=== PATIENT | female | born 1960 | race Caucasian/White ===

== ENCOUNTER 2018-04-16 16:38 | Emergency (ER) | payer OTHER ==
[2018-04-16] MEDS ORDERED: KETOROLAC 30 MG/ML INJ ONE (19:37)
[2018-04-16] MEDS ORDERED: MORPHINE 4 MG/ML SYR ONE (19:37)
[2018-04-16] MEDS ORDERED: ONDANSETRON 4 MG (ODT) TAB ONE (19:37)
[2018-04-16 20:20] LABS: Urine Blood NEGATIVE (NEG); Urine Glucose NEGATIVE (NEG); Urine Protein NEGATIVE (NEG)
--- NOTE | 2018-04-16 20:35 | RAD REPORT ---
EXAM DESCRIPTION: RAD - Lumbar Spine 3 Views - 04/16/2018 7:43 pm CLINICAL HISTORY: Slip and fall, back pain COMPARISON: March 2010 FINDINGS: A three-view lumbar spine examination was performed. Lumbar bodies are normal in height an d alignment. No acute fracture change suspected. Degenerative changes are present to the superior end plates L2 and L3 that is progressive from the prior study. No pathologic bone process. Lower lumbar f acet degenerative change has progressed. L2-3 disc space narrowing has progressed. No pars defects id entified. IMPRESSION: Lumbar spine degenerative changes are present. The above detailed findings show progress ion from 2009. No compression fracture or acute finding suspected.
--- NOTE | 2018-04-16 20:38 | RAD REPORT ---
EXAM DESCRIPTION: RAD - Pelvis - 04/16/2018 7:43 pm CLINICAL HISTORY: Slip and fall, back, pelvis and hip pain COMPARISON: None. TECHNIQUE: AP imaging of the pelvis was obtained. FINDINGS: No fracture of the bony pelvis. Lower lumbar degenerative change is separately detailed. S I joint degenerative change is present without acute sacral ala finding. No fracture or acute hip lesley nt finding. No joint effusion or other soft tissue abnormality seen. IMPRESSION: Negative pelvis for acute or significant finding.
--- NOTE | 2018-04-16 20:39 | RAD REPORT ---
EXAM DESCRIPTION: RAD - Hip Left 2 View - 04/16/2018 7:43 pm CLINICAL HISTORY: Fall, hip pain COMPARISON: None. FINDINGS: AP and frogleg views of the left hip were obtained. There is no fracture or dislocation. N o acute or destructive bony process seen. No significant degenerative change. No soft tissue abnormality. IMPRESSION: Negative left hip examination for acute or significant findings.
--- NOTE | 2018-04-16 20:42 | ER ---
Nurse's Notes [facility] Name: Ronnell Rubalcava Age: 58 yrs Sex: Female : 1960 Arrival Date: 04/16/2018 Time: 16:38 Bed 24 Private MD: Josh Jamison E Diagnosis: Sprain of ligaments of lumbar spine;Pain in left hip Presentation: 04/16 16:46 Presenting complaint: Patient states: slip and fell yesterday, c/o left hip, groin and sv back pain. Transition of care: patient was not received from another setting of care. Onset of symptoms was April 15, 2018. Care prior to arrival: None. 16:46 Method Of Arrival: Ambulatory sv 16:46 Acuity: BRYANT 4 sv 18:49 Risk Assessment: Do you want to hurt yourself or someone else? Patient reports no kr2 desire to harm self or others. Initial Sepsis Screen: Does the patient meet any 2 criteria? No. Patient's initial sepsis screen is negative. Does the patient have a suspected source of infection? No. Patient's initial sepsis screen is negative. Triage Assessment: 16:46 General: Appears in no apparent distress. uncomfortable, Behavior is calm, cooperative, sv appropriate for age. Pain: Complains of pain in left lower back and left hip Pain currently is 10 out of 10 on a pain scale. Neuro: Level of Consciousness is awake, alert, obeys commands, Oriented to person, place, time, situation, Moves all extremities. Full function Gait is steady. Respiratory: Respiratory effort is even, unlabored, Respiratory pattern is regular, symmetrical. Musculoskeletal: Range of motion: intact in all extremities. Historical: - Allergies: 16:47 Tegretol; sv - Home Meds: 18:53 Burkburnett Oral three times a day for Pain [Active]; carvedilol Oral [Active]; kr2 Cyclobenzaprine Oral [Active]; escitalopram oxalate Oral [Active]; levothyroxine oral [Active]; quetiapine Oral [Active]; topiramate Oral [Active]; Zolpidem Tartrate Oral [Active]; - PMHx: 16:47 Back pain; Fibromyalgia; graves disease; Hypertension; hyperthyroidism; Hypothyroidism; sv - PSHx: 16:47 Cholecystectomy; Appendectomy; ; sv - Immunization history:: Flu vaccine is not up to date. - Social history:: Smoking status: Patient uses tobacco products, smokes one-half pack cigarettes per day. - Ebola Screening: : No symptoms or risks identified at this time. Screenin:49 Abuse screen: Denies threats or abuse. Denies injuries from another. Nutritional kr2 screening: No deficits noted. Tuberculosis screening: No symptoms or risk factors identified. Fall Risk Fall in past 12 months (25 points). Assessment: 18:45 General: Appears in no apparent distress. uncomfortable, well groomed, well developed, kr2 well nourished, Behavior is cooperative, crying. Pain: Complains of pain in left lower back Pain radiates to buttocks and left hip Pain currently is 10 out of 10 on a pain scale. Quality of pain is described as aching, sharp, shooting, Is continuous, Alleviated by nothing. Aggravated by increased activity, Noted to be crying. Neuro: Level of Consciousness is awake, alert, obeys commands, Oriented to person, place, time, situation, [employer] Feeder are equal bilaterally Moves all extremities. Intact. Cardiovascular: Capillary refill < 3 seconds in bilateral fingers Patient's skin is warm and dry. Respiratory: Airway is patent Respiratory effort is even, unlabored, Respiratory pattern is regular, symmetrical. GI: Abdomen is flat, non-distended. : Denies inability to void. EENT: Oral mucosa is moist. Derm: Skin is intact, is healthy with good turgor, Skin is pink, warm \T\ dry. Musculoskeletal: Circulation, motion, and sensation intact. Reports She takes Burkburnett 3 times per day that is prescribed by pain management clinic but it is not helping her pain. She says she goes to pain management for back pain. Injury Description: Patient reports slipping and falling backwards from a standing position yesterday. 20:00 Reassessment: Patient appears in no apparent distress at this time. Patient and/or kr2 family updated on plan of care and expected duration. Pain level reassessed. Patient is alert, oriented x 3, equal unlabored respirations, skin warm/dry/pink. Patient states symptoms have improved. Vital Signs: 16:47 BP 196 / 99; Pulse 83; Resp 20; Temp 97.3; Pulse Ox 99% ; Weight 86.18 kg; Height 5 ft. sv 2 in. (157.48 cm); Pain 10/10; 20:17 BP 138 / 72; Pulse 79; Resp 16; Pulse Ox 98% on R/A; kr2 16:47 Body Mass Index 34.75 (86.18 kg, 157.48 cm) ED Course: 16:38 Patient arrived in ED. as 16:39 Josh Jamison MD is Private Physician. as 16:47 Triage completed. sv 16:47 Arm band placed on. sv 18:40 Anthony Griffin PA is PHCP. [facility] 18:40 Jagdish Spicer MD is Attending Physician. [facility] 18:40 Smita Rocha RN is Primary Nurse. kr2 18:49 Patient has correct armband on for positive identification. Bed in low position. Call kr2 light in reach. Side rails up X 1. Pulse ox on. NIBP on. Door closed. Warm blanket given. Head of bed elevated. 19:42 X-ray completed. Patient tolerated procedure well. Patient moved back from radiology. ls3 19:43 Lumbar Spine (3 Views) XRAY In Process Unspecified. EDMS 19:43 Pelvis XRAY In Process Unspecified. EDMS 19:43 Hip Left 2 View XRAY In Process Unspecified. EDMS 20:56 No provider procedures requiring assistance completed. Patient did not have IV access kr2 during this emergency room visit. Administered Medications: 19:48 Drug: Zofran 4 mg Route: PO; kr2 21:01 Follow up: Response: No adverse reaction kr2 19:48 Drug: Ketorolac 30 mg Route: IM; Site: left deltoid; kr2 21:01 Follow up: Response: No adverse reaction; Pain is decreased kr2 19:49 Drug: morphine 4 mg Route: IM; Site: right deltoid; kr2 21:01 Follow up: Response: No adverse reaction; Pain is decreased kr2 Outcome: 20:42 Discharge ordered by . durga 20:56 Discharged to home ambulatory, with family. kr2 20:56 Condition: good 20:56 Discharge instructions given to patient, Instructed on discharge instructions, follow up and referral plans. Demonstrated understanding of instructions, follow-up care. 21:01 Patient left the ED. kr2 Signatures: Dispatcher [employer] Feli Bess RN RN Mickail, AnthonyMAUREEN Amelia as Reaves, Karey, RN RN kr2 Salo Mejia ls3
--- NOTE | 2018-04-16 20:43 | EDPHYS ---
Physician Documentation [facility] Name: Ronnell Rubalcava Age: 58 yrs Sex: Female : 1960 Arrival Date: 04/16/2018 Time: 16:38 Bed 24 Private MD: Josh Jamison E ED Physician Jagdish Spicer HPI: 04/16 19:14 This 58 yrs old Female presents to ER via Ambulatory with complaints of Back jmm Pain, Hip Pain. 19:14 The patient presents with pain that is acute. The symptoms are located in the low back. jmm Onset: The symptoms/episode began/occurred acutely, yesterday. The pain radiates to the left leg. This is a 58 year old female with a history of fibromyalgia, graves disease, HTN, that presents to the ED with lower back pain which radites to the left leg after falling backwards yesterday. . 19:14 Patient denies fecal incontinence, denies urinary retention. . jmm Historical: - Allergies: 16:47 Tegretol; sv - Home Meds: 18:53 Strong Oral three times a day for Pain [Active]; carvedilol Oral [Active]; kr2 Cyclobenzaprine Oral [Active]; escitalopram oxalate Oral [Active]; levothyroxine oral [Active]; quetiapine Oral [Active]; topiramate Oral [Active]; Zolpidem Tartrate Oral [Active]; - PMHx: 16:47 Back pain; Fibromyalgia; graves disease; Hypertension; hyperthyroidism; Hypothyroidism; sv - PSHx: 16:47 Cholecystectomy; Appendectomy; ; sv - Immunization history:: Flu vaccine is not up to date. - Social history:: Smoking status: Patient uses tobacco products, smokes one-half pack cigarettes per day. - Ebola Screening: : No symptoms or risks identified at this time. ROS: 19:14 Constitutional: Negative for fever, chills, and weight loss. jmm 19:14 Back: Positive for pain at rest, pain with movement. 19:14 MS/extremity: Positive for pain. 19:14 All other systems are negative. Exam: 19:14 Head/Face: atraumatic. Chest/axilla: Normal chest wall appearance and motion. jmm Cardiovascular: Regular rate and rhythm. No edema appreciated Respiratory: Normal respirations, no respiratory distress appreciated Abdomen/GI: Non distended, soft 19:14 Constitutional: The patient appears in no acute distress, alert, awake. 19:14 Back: left lateral back pain on palpation at the region of the lumbar spine. . 19:14 Musculoskeletal/extremity: ROM: intact in all extremities. 19:14 Neuro: Orientation: is normal, Mentation: is normal, Memory: is normal, Motor: is normal. 19:14 Neuro: extensor hallucis longus intact. 19:14 Psych: Behavior/mood is pleasant, cooperative. Vital Signs: 16:47 BP 196 / 99; Pulse 83; Resp 20; Temp 97.3; Pulse Ox 99% ; Weight 86.18 kg; Height 5 ft. sv 2 in. (157.48 cm); Pain 10/10; 20:17 BP 138 / 72; Pulse 79; Resp 16; Pulse Ox 98% on R/A; kr2 16:47 Body Mass Index 34.75 (86.18 kg, 157.48 cm) sv MDM: 19:14 Patient medically screened. [facility] 20:40 Data reviewed: vital signs, nurses notes. Counseling: I had a detailed discussion with [facility] the patient and/or guardian regarding: the historical points, exam findings, and any diagnostic results supporting the discharge/admit diagnosis, radiology results, the need for outpatient follow up, to return to the emergency department if symptoms worsen or persist or if there are any questions or concerns that arise at home. 04/16 19:57 Order name: Urine Dipstick--Ancillary (enter results); Complete Time: 20:24 [facility] 04/16 19:19 Order name: Lumbar Spine (3 Views) XRAY; Complete Time: 20:39 [facility] 04/16 19:19 Order name: Pelvis XRAY; Complete Time: 20:39 [facility] 04/16 19:19 Order name: Hip Left 2 View XRAY; Complete Time: 20:40 [facility] Administered Medications: 19:48 Drug: Zofran 4 mg Route: PO; kr2 21:01 Follow up: Response: No adverse reaction kr2 19:48 Drug: Ketorolac 30 mg Route: IM; Site: left deltoid; kr2 21:01 Follow up: Response: No adverse reaction; Pain is decreased kr2 19:49 Drug: morphine 4 mg Route: IM; Site: right deltoid; kr2 21:01 Follow up: Response: No adverse reaction; Pain is decreased kr2 Disposition: 04/16/18 20:42 Discharged to Home. Impression: Sprain of ligaments of lumbar spine, Pain in left hip. - Condition is Stable. - Discharge Instructions: Back Pain, Adult, Hip Pain. - Medication Reconciliation Form, Thank You Letter, Antibiotic Education, Prescription Opioid Use form. - Follow up: Private Physician; When: 1 - 2 days; Reason: Recheck today's complaints, Continuance of care, Re-evaluation by your physician. Signatures: Dispatcher [employer] EDFeli Ladd RN RN Anthony Cortez PA PA jmm Reaves, Karey, RN RN kr2 Corrections: (The following items were deleted from the chart) 21:01 20:42 04/16/2018 20:42 Discharged to Home. Impression: Sprain of ligaments of lumbar kr2 spine; Pain in left hip. Condition is Stable. Forms are Medication Reconciliation Form, Thank You Letter, Antibiotic Education, Prescription Opioid Use. Follow up: Private Physician; When: 1 - 2 days; Reason: Recheck today's complaints, Continuance of care, Re-evaluation by your physician. durga
[2018-04-16 21:18] VITALS: TEMP 97.3
[2018-04-16 21:19] VITALS: BP 138/72; O2SAT 98
== END 2018-04-16 21:01 | disposition home or self-care (01) ==
LOC: ER 16:38
DX: S33.5XXA Sprain of ligaments of lumbar spine, initial encounter (principal); M25.552 Pain in left hip; F17.210 Nicotine dependence, cigarettes, uncomplicated; I10 Essential (primary) hypertension; Z88.6 Allergy status to analgesic agent
CPT/HCPCS: 72100; 72170; 81003; 96372; 99284

== ENCOUNTER 2018-04-19 15:37 | Emergency (ER) | payer OTHER ==
[2018-04-19] MEDS ORDERED: KETOROLAC 30 MG/ML INJ ONE (17:35)
[2018-04-19] MEDS ORDERED: ONDANSETRON 4 MG (ODT) TAB ONE (17:35)
[2018-04-19] MEDS ORDERED: MORPHINE 4 MG/ML SYR ONE (17:35)
[2018-04-19] MEDS ORDERED: DIAZEPAM 5 MG TABLET ONE (17:35)
--- NOTE | 2018-04-19 18:20 | RAD REPORT ---
EXAM DESCRIPTION: US - Extremity Venous Uni Ltd - 04/19/2018 6:15 pm CLINICAL HISTORY: left leg pain Leg swelling and edema. COMPARISON: No comparisons FINDINGS: Left lower extremity venous system was interrogated with Doppler technique. Normal flow, c ompressibility and augmentation was noted. There is no DVT present. IMPRESSION: No evidence of left lower extremity deep venous thrombosis.
--- NOTE | 2018-04-19 19:32 | ER ---
Nurse's Notes [facility] Name: Ronnell Rubalcava Age: 58 yrs Sex: Female : 1960 Arrival Date: 04/19/2018 Time: 15:40 Bed 24 Private MD: Diagnosis: Sciatica, left side Presentation: 04/19 15:46 Presenting complaint: Patient states: i fell last Friday and hurt my L lower back hip; hj i was here and xray done and told i dont have any broken bone; but the pain is getting worse; and i fell again and hurt my L knee and L leg;. Transition of care: patient was not received from another setting of care. Onset of symptoms was April 19, 2018. Risk Assessment: Do you want to hurt yourself or someone else? Patient reports no desire to harm self or others. Initial Sepsis Screen: Does the patient meet any 2 criteria? No. Patient's initial sepsis screen is negative. Does the patient have a suspected source of infection? No. Patient's initial sepsis screen is negative. Care prior to arrival: None. 15:46 Method Of Arrival: Ambulatory 15:46 Acuity: BRYANT 4 hj Triage Assessment: 15:50 General: Appears in no apparent distress. uncomfortable, Behavior is calm, cooperative, hj appropriate for age. Pain: Complains of pain in back and left leg. Historical: - Allergies: 15:49 Tegretol; hj - Home Meds: 15:49 carvedilol Oral [Active]; Cyclobenzaprine Oral [Active]; escitalopram oxalate Oral hj [Active]; Hydrocodone-Acetaminophen Oral [Active]; levothyroxine oral [Active]; Pinch Oral three times a day for Pain [Active]; quetiapine Oral [Active]; topiramate Oral [Active]; Zolpidem Tartrate Oral [Active]; - PMHx: 15:49 Back pain; Fibromyalgia; graves disease; Hypertension; hyperthyroidism; Hypothyroidism; hj - PSHx: 15:49 Cholecystectomy; Appendectomy; ; hj - Immunization history:: Adult Immunizations up to date. - Social history:: Smoking status: Patient uses tobacco products, smokes one-half pack cigarettes per day, Patient/guardian denies using alcohol. - Ebola Screening: : Patient negative for fever greater than or equal to 101.5 degrees Fahrenheit, and additional compatible Ebola Virus Disease symptoms Patient denies exposure to infectious person Patient denies travel to an Ebola-affected area in the 21 days before illness onset. Screenin:50 Abuse screen: Denies threats or abuse. Denies injuries from another. Nutritional hj screening: No deficits noted. Tuberculosis screening: No symptoms or risk factors identified. Fall Risk Fall in past 12 months (25 points). Assessment: 17:40 General: Appears uncomfortable. Pain: Complains of pain in left leg and back. Neuro: mg2 Level of Consciousness is awake, alert, obeys commands, Oriented to person, place, time, situation, Appropriate for age. Cardiovascular: Patient's skin is warm and dry. Respiratory: Airway is patent Respiratory effort is even, unlabored, Respiratory pattern is regular, symmetrical. GI: No signs and/or symptoms were reported involving the gastrointestinal system. : No signs and/or symptoms were reported regarding the genitourinary system. EENT: No signs and/or symptoms were reported regarding the EENT system. Derm: No signs and/or symptoms reported regarding the dermatologic system. Musculoskeletal: Reports pain in left leg and back. 19:37 Reassessment: Patient appears in no apparent distress at this time. No changes from tl3 previously documented assessment. Patient and/or family updated on plan of care and expected duration. Pain level reassessed. Patient is alert, oriented x 3, equal unlabored respirations, skin warm/dry/pink. Vital Signs: 15:50 BP 181 / 93; Pulse 84; Resp 18; Temp 98.7(O); Pulse Ox 100% on R/A; Weight 86.18 kg; Height 5 ft. 2 in. (157.48 cm); Pain 10/10; 17:25 BP 221 / 68 LA Sitting (auto/); Pulse 77; Pulse Ox 97% on R/A; mb4 17:40 BP 177 / 117; Pulse 81; Resp 18; Pulse Ox 99% on R/A; mg2 19:37 BP 139 / 81; Pulse 76; Resp 18; Pulse Ox 96% on R/A; tl3 15:50 Body Mass Index 34.75 (86.18 kg, 157.48 cm) ED Course: 15:40 Patient arrived in ED. mr 15:48 Triage completed. hj 15:50 Arm band placed on left wrist. hj 15:50 Patient has correct armband on for positive identification. Placed in gown. Bed in low hj position. Call light in reach. 17:00 Anthony Griffin PA is PHCP. [facility] 17:00 Luis Alberto Mccord MD is Attending Physician. [facility] 17:19 Jayde Sepulveda, RN is Primary Nurse. tl3 17:24 Door closed. Lights dimmed. Warm blanket given. Patient cushioned for comfort with mb4 rolled blankets. . 17:40 No provider procedures requiring assistance completed. mg2 18:16 US Extremity Venous Unilateral Ltd In Process Unspecified. EDMS 19:37 Patient did not have IV access during this emergency room visit. tl3 Administered Medications: 17:37 Drug: morphine 4 mg Route: IM; Site: right vastus lateralis; mg2 18:42 Follow up: Response: Pain is decreased mg2 17:37 Drug: Ketorolac 30 mg Route: IM; Site: right vastus lateralis; mg2 18:42 Follow up: Response: No adverse reaction; Pain is decreased mg2 17:37 Drug: Valium 5 mg Route: PO; mg2 18:42 Follow up: Response: Pain is decreased mg2 17:37 Drug: Zofran 4 mg Route: PO; mg2 18:42 Follow up: Response: Nausea is decreased mg2 Outcome: 19:31 Discharge ordered by . [facility] 19:37 Discharged to home ambulatory. tl3 19:37 Condition: good 19:37 Discharge instructions given to patient, Instructed on discharge instructions, follow up and referral plans. 19:41 Patient left the ED. tl3 Signatures: Dispatcher [employer] EDTX Anthony Griffin PA PA [facility] Alicia ArredondoYunior moon RN RN Jayde Rock, RN RN tl3 Fuad oDrantes, JANICE RN [facility] mb4 Corrections: (The following items were deleted from the chart) 15:48 15:46 Presenting complaint: Patient states: i fell last Friday and hurt my L lower hj back hip; i was here and xray done and told i dont have any broken bone; but the pain is getting worse; hj 15:53 15:50 Pulse 84bpm; Resp 18bpm; Pulse Ox 100% RA; Temp 98.7F Oral; 86.18 kg; Height 5 hj ft. 2 in.; BMI: 34.7; Pain 10/; hj 19:41 19:37 IV discontinued, intact, bleeding controlled, No redness/swelling at site. tl3 Pressure dressing applied, tl3
--- NOTE | 2018-04-19 19:32 | EDPHYS ---
Physician Documentation [facility] Name: Ronnell Rubalcava Age: 58 yrs Sex: Female : 1960 Arrival Date: 04/19/2018 Time: 15:40 Bed 24 Private MD: ED Physician Luis Alberto Mccord HPI: 04/19 17:23 This 58 yrs old Female presents to ER via Ambulatory with complaints of Leg jmm Pain. 17:23 The patient presents with pain, that is acute. Onset: The symptoms/episode jmm began/occurred acutely. This is a 58 year old female with a history of chronic back pain, fibromyalgia that presents to the ED with back pain radiating down the left leg. States she visited with her pain management doctor whom prescribed steroids. . Historical: - Allergies: 15:49 Tegretol; hj - Home Meds: 15:49 carvedilol Oral [Active]; Cyclobenzaprine Oral [Active]; escitalopram oxalate Oral hj [Active]; Hydrocodone-Acetaminophen Oral [Active]; levothyroxine oral [Active]; [place] Oral three times a day for Pain [Active]; quetiapine Oral [Active]; topiramate Oral [Active]; Zolpidem Tartrate Oral [Active]; - PMHx: 15:49 Back pain; Fibromyalgia; graves disease; Hypertension; hyperthyroidism; Hypothyroidism; hj - PSHx: 15:49 Cholecystectomy; Appendectomy; ; hj - Immunization history:: Adult Immunizations up to date. - Social history:: Smoking status: Patient uses tobacco products, smokes one-half pack cigarettes per day, Patient/guardian denies using alcohol. - Ebola Screening: : Patient negative for fever greater than or equal to 101.5 degrees Fahrenheit, and additional compatible Ebola Virus Disease symptoms Patient denies exposure to infectious person Patient denies travel to an Ebola-affected area in the 21 days before illness onset. ROS: 17:23 Constitutional: Negative for fever, chills, and weight loss, Cardiovascular: Negative jmm for chest pain, palpitations, and edema, Respiratory: Negative for shortness of breath, cough, wheezing, and pleuritic chest pain. 17:23 MS/Extremity: Negative for injury and deformity, Skin: Negative for injury, rash, and discoloration, Neuro: Negative for headache, weakness, numbness, tingling, and seizure. 17:23 Back: Positive for pain at rest, pain with movement. 17:23 MS/extremity: Positive for radiated pain. 17:23 All other systems are negative. Exam: 17:23 Head/Face: atraumatic. Eyes: EOMI, no conjunctival erythema appreciated ENT: Moist jm Mucus Membranes Neck: Trachea midline, Supple Chest/axilla: Normal chest wall appearance and motion. Cardiovascular: Regular rate and rhythm. No edema appreciated Respiratory: Normal respirations, no respiratory distress appreciated Abdomen/GI: Non distended, soft 17:23 Constitutional: The patient appears in no acute distress, alert, awake. 17:23 Back: ROM is painful, vertebral tenderness, is not appreciated. 17:23 Musculoskeletal/extremity: ROM: intact in all extremities, full dorsalis pedis pulse, compartments are soft, NVI. 17:23 Skin: Appearance: Color: normal in color. 17:23 Neuro: Orientation: is normal, Mentation: is normal, Memory: is normal, Gait: is steady. 17:23 Psych: Behavior/mood is pleasant, cooperative. Vital Signs: 15:50 BP 181 / 93; Pulse 84; Resp 18; Temp 98.7(O); Pulse Ox 100% on R/A; Weight 86.18 kg; hj Height 5 ft. 2 in. (157.48 cm); Pain 10/10; 17:25 BP 221 / 68 LA Sitting (auto/); Pulse 77; Pulse Ox 97% on R/A; mb4 17:40 BP 177 / 117; Pulse 81; Resp 18; Pulse Ox 99% on R/A; mg2 19:37 BP 139 / 81; Pulse 76; Resp 18; Pulse Ox 96% on R/A; tl3 15:50 Body Mass Index 34.75 (86.18 kg, 157.48 cm) MDM: 17:20 Patient medically screened. [facility] 19:28 Data reviewed: vital signs, nurses notes. Data reviewed: lab test result(s), radiologic [facility] studies, ultrasound. Counseling: I had a detailed discussion with the patient and/or guardian regarding: the historical points, exam findings, and any diagnostic results supporting the discharge/admit diagnosis, radiology results, the need for outpatient follow up, to return to the emergency department if symptoms worsen or persist or if there are any questions or concerns that arise at home. ED course: Pain is relieved in the ED. I do not suspect cord compression. Normal rectal tone. No saddle paresthesias. Full extension of extensor hallucis appreciated. Patient will follow up with pain management tomorrow for reevaluation. . 04/19 17:22 Order name: US Extremity Venous Unilateral Ltd; Complete Time: 18:27 camacho Administered Medications: 17:37 Drug: morphine 4 mg Route: IM; Site: right vastus lateralis; mg2 18:42 Follow up: Response: Pain is decreased mg2 17:37 Drug: Ketorolac 30 mg Route: IM; Site: right vastus lateralis; mg2 18:42 Follow up: Response: No adverse reaction; Pain is decreased mg2 17:37 Drug: Valium 5 mg Route: PO; mg2 18:42 Follow up: Response: Pain is decreased mg2 17:37 Drug: Zofran 4 mg Route: PO; mg2 18:42 Follow up: Response: Nausea is decreased mg2 Disposition: 04/20 09:55 Co-signature as Attending Physician, Luis Alberto Mccord MD. ne2 Disposition: 04/19/18 19:31 Discharged to Home. Impression: Sciatica, left side. - Condition is Stable. - Discharge Instructions: Sciatica. - Medication Reconciliation Form, Thank You Letter, Antibiotic Education, Prescription Opioid Use form. - Follow up: Private Physician; When: 2 - 3 days; Reason: Recheck today's complaints, Continuance of care, Re-evaluation by your physician. Signatures: Dispatcher [employer] EDMS Anthony Griffin PA PA Yunior Camargo RN RN Luis Alberto Mccord MD MD ma2 Jayde Sepulveda RN RN tl3 Fuad Dorantes RN RN mg2 Corrections: (The following items were deleted from the chart) 04/19 19:41 19:31 04/19/2018 19:31 Discharged to Home. Impression: Sciatica, left side. Condition tl3 is Stable. Forms are Medication Reconciliation Form, Thank You Letter, Antibiotic Education, Prescription Opioid Use. Follow up: Private Physician; When: 2 - 3 days; Reason: Recheck today's complaints, Continuance of care, Re-evaluation by your physician. durga
[2018-04-21 14:04] VITALS: BP 139/81; TEMP 98.7; O2SAT 96
== END 2018-04-19 19:41 | disposition home or self-care (01) ==
LOC: ER 15:37
DX: M54.32 Sciatica, left side (principal); I10 Essential (primary) hypertension; F17.210 Nicotine dependence, cigarettes, uncomplicated
CPT/HCPCS: 93971; 96372; 99283

== ENCOUNTER 2020-06-19 20:01 | Emergency (ER) | payer OTHER ==
--- OUTSIDE RECORDS SUMMARY | 2020-06-19 20:03 | XMS REPORT | Clinical Summary ---
:1960 Author Organization [facility] Address [address] [place] [address] Care Team Providers Name Role Phone Yaquelin Gama MD Primary Care Provider Allergies Active Allergy Reactions Severity Noted Date Comments Chlorhexidine Gluconate Itching Low 07/10/2018 Itch ing over areas she used with the [facility] wi pes this morning. Carbamazepine 06/04/2018 Medications Medication Sig Dispensed Refills Start Date End Date Status carvedilol (COREG) 12.5 Take 12.5 mg by 0 Active MG tablet mouth 2 (two) times a day. HYDROcodone-acetaminoph Take 1 tablet by 0 Active en (NORCO) 7.5-325 mg mouth every 8 per tablet (eight) hours as needed for moderate pain. ranitidine (ZANTAC) 150 Take 150 mg by 0 Active MG tablet mouth 2 (two) times a day. pregabalin (LYRICA) 50 Take 50 mg by 0 Active MG capsule mouth 2 (two) times a day. levothyroxine Take 125 mcg by 0 Active (SYNTHROID, LEVOXYL) mouth every 125 mcg tablet morning. temazepam (RESTORIL) 30 Take 30 mg by 0 Active mg capsule mouth nightly as needed for sleep. dextroamphetamine-amphe Take 30 mg by 0 Active tamine (ADDERALL) 30 mg mouth 2 (two) tablet times a day. terbinafine HCl Take 250 mg by 0 Active (LamiSIL) 250 mg tablet mouth daily. Active Problems Problem Noted Date Narrowing of lumbar spine 07/10/2018 Surgical History Surgery Date Site/Laterality Comments SECTION [id number] GALLBLADDER SURGERY 07/07/2016 - 07/06/2017 APPENDECTOMY 07/07/2014 - 07/06/2015 LAMINECTOMY, LUMBAR 07/10/2018 Back/Left Procedure: P OSTERIOR LUMBAR MICRODISCECTOMY LEFT L3-S1; Surgeon: Daryl Tinsley MD; Location: [facility]; Service: Neurosu rgery; Laterality: Left ; Medical History Medical History Date Comments Hypertension Low back pain Infectious viral hepatitis Hep C - 4 or more years ago Family History Medical History Relation Name Comments Heart disease Brother Heart disease Father Cancer Mother Relation Name Status Comments Brother Alive Father Alive Mother Alive Sister Alive Social History Tobacco Use Types Packs/Day Years Used Date Current Every Day Smoker Cigarettes 0.5 40 Smokeless Tobacco: Former User Alcohol Use Drinks/Week oz/Week Comments Yes very rarely Alcohol Habits Answer Date Recorded How often do you have a drink containing alcohol? Never 06/04/2018 How many drinks containing alcohol do you have on a typical Not asked day when you are drinking? How often do you have six or more drinks on one occasion? No t asked Sex Assigned at Date Recorded Not on file Last Filed Vital Signs Not on file Plan of Treatment Health Maintenance Due Date Last Done Comments CERVICAL CANCER SCREENING 1982 BREAST CANCER SCREENING 2011 COLONOSCOPY SCREENING 2011 SHINGLES VACCINES (#1) 2011 INFLUENZA VACCINE 02/05/2020 Results Not on fileafter 06/19/2019 Insurance Payer Benefit Plan / Subscriber ID Effective Dates Phone Addre ss Type Group MEDICARE MEDICARE PART A [id number] 1998-Present [place], [place] Medicare AND B Ronnell Rubalcava Third Democrat Self 1960 [phone] Li[address] (Home) [place], [place] [address] Advance Directives For more information, please contact: [phone] Type Date Recorded Patient Tube Station Attendant Explanati on Advance Directives, Living Will and Medical Power of Director Sales And Marketing
--- OUTSIDE RECORDS SUMMARY | 2020-06-19 20:03 | XMS REPORT | Continuity of Care Document ---
:1960 Author Organization [facility] t Address [address] [place] [address] Care Team Providers Name Role Phone Yaquelin Gama MD Primary Care Physician Beck ACEVES Attending Clinician Problems Condition Condition Condition Status Onset Resolution Last Treating Co mments Source Name Details Category Date Date Treatment Clinician Date Narrowing Narrowing Disease Active Javier ston of lumbar of lumbar 07-10 [place] al[place] spine spine 00:00: st 00 Allergies, Adverse Reactions, Alerts Allergy Allergy Status Severity Reaction(s) Onset Inactive Treating Comm ents Source Name Type Date Date Clinician Chlorhex Propensi Active Itching Itching [place] idine ty to 07-10 over [facility] Gluconat adverse 00:00: areas she st e reaction 00 used with s to the [facility] drug wipes this morning. Carbamaz Prop[place]i Active 2017-07 [place] epine ty to 08-04 [facility] adverse 00:00: st reaction 00 s to drug Family History Family Member Diagnosis Comments Start Date Stop Date Source Natural brother Heart disease [place] [facility] Natural father Heart disease [place] [employer] Natural mother Cancer [facility] Social History Social Habit Start Date Stop Date Quantity Comments Source History of tobacco Cigarette Smoker [place] use [facility] History [facility] Alcohol Std Drinks [facility] History [facility] Alcohol Binge [facility] Sex Assigned At [place] [facility] Cigarettes smoked 2018-07-13 2018-07-13 [place] current (pack per 00:00:00 00:00:[address] day) - Reported Cigarette 2018-07-13 2018-07-13 [place] pack-years 00:00:00 00:00:00 [employer] Tobacco use and 2018-07-13 2018-07-13 Former user [place] exposure 00:00:00 00:00:00 [employer] Alcohol intake 2018-07-13 2018-07-13 Current drinker Venancio on 00:00:00 00:00:00 of alcohol [facility] (finding) Alcohol Comment 2018-07-10 2018-07-10 very rarely [place] 00:00:00 00:00:00 [employer] History SDOH 2018-06-04 2018-06-04 1 [place] Alcohol Frequency 00:00:00 00:00:[address] Smoking Status Start Date Stop Date Source Current every day smoker 2018-07-13 00:00:00 Javier higuera [employer] Medications Ordered Filled Start Stop Current Ordering Indication Dosage Frequency Signature Comments Components Source Medication Medication Date Date Medication? Clinician (SIG) Name Name carvedilol 2019- Yes 12.5mg Q.5D Take 12.5 [place] (COREG) 1-05 mg by [facility]i 12.5 MG 12:02: mouth 2 st tablet 22 (two) times a day. HYDROcodone 2019-0 Yes 1{tbl} Q8H Take 1 [place] -acetaminop 1-05 tablet by Met frandy maxwell (NORCO) 12:02: mouth st 7.5-325 mg 22 every 8 per tablet (eight) hours as needed for moderate pain. ranitidine 2019-0 Yes 150mg Q.5D Take 150 [place] (ZANTAC) 1-05 mg by [facility] 150 MG 12:02: mouth 2 st tablet 22 (two) times a day. pregabalin 2019-0 Yes 50mg Q.5D Take 50 mg [place] (LYRICA) 50 1-05 by mouth 2 Me thodi MG capsule 12:02: (two) st 22 times a day. levothyroxi 2019-0 Yes 125ug QD Take 125 [place] ne 1-05 mcg by [facility] (SYNTHROID, 12:02: mouth st LEVOXYL) 22 every 125 mcg morning. tablet temazepam 2019-0 Yes 30mg QD Take 30 mg [place] (RESTORIL) 1-05 by mouth Metho di 30 mg 12:02: nightly as st capsule 22 needed for sleep. dextroamphe 2019-0 Yes 30mg Q.5D Take 30 mg [place] tamine-amph 1-05 by mouth 2 Me th[place] etamine 12:02: (two) st (ADDERALL) 22 times a 30 mg day. tablet terbinafine 2019-0 Yes 250mg QD Take 250 [place] HCl 1-05 mg by [facility] (LamiSIL) 12:02: mouth st 250 mg 22 daily. tablet Procedures This patient has no known procedures. Plan of Care Planned Activity Planned Date Details Comments Source Future Scheduled 2020-02-05 INFLUENZA VACCINE [place] [facility] Test 00:00:00 [code = INFLUENZA VACCINE] Future Scheduled 2011 BREAST CANCER [facility] Test 00:00:00 SCREENING [code = BREAST CANCER SCREENING] Future Scheduled 2011 COLONOSCOPY SCREENING [facility] [employer] Test 00:00:00 [code = COLONOSCOPY SCREENING] Future Scheduled 2011 SHINGLES VACCINES [place] [facility] Test 00:00:00 (#1) [code = SHINGLES VACCINES (#1)] Future Scheduled 1982 Screening for [facility] Test 00:00:00 malignant neoplasm of cervix (procedure) [code = 861366899] Encounters Start End Encounter Admission Attending Care Care Encounter Source Date/Time Date/Time Type Type Clinicians Facility Department ID 2019-02-01 2019-02-01 Telephone Beck [facility] [id number] 00:00:00 00:00:00 Otto Nuno [id number] Radha [id number] Kelly [id number] [address] Building Results This patient has no known results.
[2020-06-19 21:45] LABS: Absolute Lymphocytes (CBC) 1.6 K/uL (0.7-4.9); Basophils % 0.8 % (0-1.3); Hematocrit 37.8 % (36.0-45.0); Lymphocytes % 27.7 % (15.3-44.8); MPV 9.1 fL (7.6-11.3); RBC Red Blood Cell Count 4.22 M/uL (3.86-4.86)
[2020-06-19] MEDS ORDERED: NA CHLORIDE 0.9% 1,000 ML ONE (21:45)
[2020-06-19 21:59] LABS: Urine Bacteria <20 /HPF (<20); Urine Mucus 1+ /HPF (NONE SEEN)
[2020-06-19 22:00] LABS: Urine Blood TRACE (NEG); Urine Glucose NEGATIVE (NEG); Urine Protein NEGATIVE (NEG); Urine Specific Gravity >1.030 (1.005-1.030); Urine pH 5.5 (5.0-7.0)
[2020-06-19 22:01] LABS: Albumin 3.2 g/dL (3.4-5.0); Bilirubin Direct 0.1 mg/dL (0-0.2); Bilirubin Total 0.3 mg/dL (0.2-1.0); Potassium 3.4 mmol/L (3.5-5.1)
[2020-06-19] MEDS ORDERED: MORPHINE 4 MG/ML SYR ONE (22:17)
[2020-06-19] MEDS ORDERED: DIPHENHYDRAMINE 50 MG/ML VIAL ONE (22:34)
[2020-06-19] MEDS ORDERED: CEFTRIAXONE/SWI 1gm 1 GM/10 ML SYR ONE (23:36)
--- NOTE | 2020-06-20 03:00 | ER ---
Nurse's Notes [facility] Name: Ronnell Rubalcava Age: 60 yrs Sex: Female : 1960 Arrival Date: 06/19/2020 Time: 20:05 Bed 14 Private MD: Josh Jamison E Diagnosis: Pneumonia, unspecified organism Presentation: 06/19 20:09 Chief complaint: Patient states: Friday morning, woke up shivering. R mid back pain. ca1 I had this before when I had bad UTI. Coronavirus screen: Client denies travel out of the [place] in the last 14 days. At this time, the client does not indicate any symptoms associated with coronavirus-19. Ebola Screen: Patient negative for fever greater than or equal to 101.5 degrees Fahrenheit, and additional compatible Ebola Virus Disease symptoms Patient denies exposure to infectious person. Patient denies travel to an Ebola-affected area in the 21 days before illness onset. No symptoms or risks identified at this time. Initial Sepsis Screen: Does the patient meet any 2 criteria? No. Patient's initial sepsis screen is negative. Does the patient have a suspected source of infection? No. Patient's initial sepsis screen is negative. Risk Assessment: Do you want to hurt yourself or someone else? Patient reports no desire to harm self or others. Onset of symptoms was June 19, 2020. 20:09 Method Of Arrival: Ambulatory ca1 20:09 Acuity: BRYANT 3 ca1 Historical: - Allergies: 20:13 Tegretol; ca1 - PMHx: 20:13 Back pain; Fibromyalgia; graves disease; Hypertension; hyperthyroidism; Hypothyroidism; ca1 - PSHx: 20:13 Cholecystectomy; Appendectomy; ; ca1 - Immunization history:: Adult Immunizations up to date, Flu vaccine is not up to date. - Social history:: Smoking status: Patient reports the use of cigarette tobacco products, smokes one-half pack cigarettes per day. Screenin:55 Abuse screen: Denies threats or abuse. Nutritional screening: No deficits noted. ll2 Tuberculosis screening: No symptoms or risk factors identified. Fall Risk None identified. Assessment: 21:11 General: Appears in no apparent distress. Behavior is calm, cooperative, appropriate ll2 for age. Pain: Complains of pain in right mid back and right low back. Neuro: Level of Consciousness is awake, alert, obeys commands, Oriented to person, place, time, situation. Cardiovascular: Patient's skin is warm and dry. Respiratory: Airway is patent Respiratory effort is even, unlabored, Respiratory pattern is regular, symmetrical. GI: No signs and/or symptoms were reported involving the gastrointestinal system. : No signs and/or symptoms were reported regarding the genitourinary system. EENT: No signs and/or symptoms were reported regarding the EENT system. Derm: Skin is intact, is healthy with good turgor, Skin is dry, Skin is pink, warm \T\ dry. Musculoskeletal: Circulation, motion, and sensation intact. Range of motion:. 21:55 Reassessment: Patient and/or family updated on plan of care and expected duration. Pain ll2 level reassessed. Patient is alert, oriented x 3, equal unlabored respirations, skin warm/dry/pink. 22:15 Reassessment: Patient and/or family updated on plan of care and expected duration. Pain ll2 level reassessed. Patient is alert, oriented x 3, equal unlabored respirations, skin warm/dry/pink. pts IV looks reddened. ERP notified. 06/20 00:30 Reassessment: Patient appears in no apparent distress at this time. Patient and/or mg2 family updated on plan of care and expected duration. Pain level reassessed. Patient is alert, oriented x 3, equal unlabored respirations, skin warm/dry/pink. Vital Signs: 06/19 20:09 BP 132 / 76; Pulse 82; Resp 16 S; Temp 97.4(TE); Pulse Ox 100% on R/A; Weight 77.11 kg ca1 (R); Height 5 ft. 2 in. (157.48 cm) (R); Pain 6/10; 20:49 BP 125 / 74; Pulse 74; Resp 17; Temp 98; Pulse Ox 99% on R/A; ll2 21:45 BP 125 / 70; Pulse 73; Resp 16; Pulse Ox 99% on R/A; ll2 22:50 BP 134 / 78; Pulse 72; Resp 16; Pulse Ox 99% on R/A; ll2 06/20 00:49 BP 130 / 80; Pulse 80; Resp 18; Temp 98; Pulse Ox 100% on R/A; mg2 06/19 20:09 Body Mass Index 31.09 (77.11 kg, 157.48 cm) ca1 ED Course: 06/19 20:05 Patient arrived in ED. mr 20:05 Josh Jamison MD is Private Physician. mr 20:12 Triage completed. ca1 20:13 Arm band placed on right wrist. ca1 20:46 Bubba Chino, PATTERN ROOM ATTENDANT is PHCP. pm1 20:46 Luis Britton MD is Attending Physician. pm1 21:10 Caty Wyatt RN is Primary Nurse. ll2 21:55 Patient has correct armband on for positive identification. Bed in low position. Call ll2 light in reach. Side rails up X 1. Pulse ox on. NIBP on. 21:55 No provider procedures requiring assistance completed. Initial lab(s) drawn, by ED ll2 staff, sent to lab. Urine collected: clean catch specimen, clear. Inserted saline lock: 22 gauge in right forearm, using aseptic technique. ,using aseptic technique. inserted by JANICE english. 22:43 CT Abd/Pelvis - IV Contrast Only In Process Unspecified. EDMS 23:32 Chest Single View XRAY In Process Unspecified. EDMS 12 00:49 IV discontinued, intact, bleeding controlled, No redness/swelling at site. Pressure mg2 dressing applied. Administered Medications: 06/19 21:35 Drug: NS 0.9% 1000 ml Route: IV; Rate: 1000 ml; Site: right forearm; ll2 06/20 00:42 Follow up: Response: No adverse reaction; IV Status: Completed infusion; IV Intake: mg2 1000ml 06/19 22:05 Drug: morphine 4 mg Route: IVP; Site: right forearm; mg2 23:29 Follow up: Response: No adverse reaction ll2 22:35 Drug: Benadryl 25 mg Route: IVP; Site: right forearm; mg2 23:28 Follow up: Response: No adverse reaction ll2 23:37 Drug: Rocephin 1 grams Route: IV; Rate: calculated rate; Site: right forearm; ll2 06/20 00:42 Follow up: Response: No adverse reaction; IV Status: Completed infusion mg2 Intake: 00:42 IV: 1000ml; Total: 1000ml. mg2 Outcome: 00:41 Discharge ordered by . pm1 00:49 Discharged to home ambulatory. mg2 00:49 Condition: stable 00:49 Discharge instructions given to patient, Instructed on discharge instructions, follow up and referral plans. medication usage, Demonstrated understanding of instructions, follow-up care, medications, Prescriptions given X 1. 00:49 Patient left the ED. mg2 Addendum: 06/21/2020 17:26 Addendum: COVID-19 Result: Negative result given to RN to notify pt. Notified pt of a a5 negative COVID 19 swab results. Pt advised that even with a negative test result they should remain in isolation until symptom free for 3 days without medication. Pt also advised to return to the ED for worsening symptoms. Signatures: Dispatcher [employer] Alicia Castillo mr MartinezBrandi stevens, RN RN aa5 Bubba Chino, HOLLIE PATTERN ROOM ATTENDANT pm1 Fuad Dorantes, JANICE RN mg2 Rachael Pena, RN RN ca1 Caty Wyatt RN RN ll2
--- NOTE | 2020-06-20 03:01 | EDPHYS ---
Physician Documentation [facility] Name: Ronnell Rubalcava Age: 60 yrs Sex: Female : 1960 Arrival Date: 06/19/2020 Time: 20:05 Bed 14 Private MD: Josh Jamison E ED Physician Luis Britton HPI: 06/19 20:26 This 60 yrs old Female presents to ER via Ambulatory with complaints of pm1 kidney infection. 20:26 The patient complains of pain in the right mid back. The pain does not radiate. Onset: pm1 The symptoms/episode began/occurred 2 day(s) ago. Modifying factors: The symptoms are alleviated by nothing. the symptoms are aggravated by nothing. Associated signs and symptoms: Pertinent positives: chills, Pertinent negatives: diarrhea, dysuria, fever, nausea, vomiting. Severity of pain: in the emergency department the pain is unchanged. The patient has experienced a previous episode, similar to prior UTI. Historical: - Allergies: 20:13 Tegretol; ca1 - PMHx: 20:13 Back pain; Fibromyalgia; graves disease; Hypertension; hyperthyroidism; Hypothyroidism; ca1 - PSHx: 20:13 Cholecystectomy; Appendectomy; ; ca1 - Immunization history:: Adult Immunizations up to date, Flu vaccine is not up to date. - Social history:: Smoking status: Patient reports the use of cigarette tobacco products, smokes one-half pack cigarettes per day. ROS: 20:26 : Negative for injury, bleeding, discharge, and swelling, MS/Extremity: Negative for pm1 injury and deformity, Skin: Negative for injury, rash, and discoloration, Neuro: Negative for headache, weakness, numbness, tingling, and seizure. 20:26 Constitutional: Negative for fever, and weight loss, Positve for chills Cardiovascular: Negative for chest pain, palpitations, and edema, Respiratory: Negative for shortness of breath, wheezing, and pleuritic chest pain, Positive for cough Abdomen/GI: Negative for abdominal pain, nausea, vomiting, diarrhea, and constipation. 20:26 Back: Positive for flank pain, on the right. Exam: 20:26 Constitutional: This is a well developed, well nourished patient who is awake, alert, pm1 and in no acute distress. Head/Face: Normocephalic, atraumatic. 20:26 Skin: Warm, dry with normal turgor. Normal color with no rashes, no lesions, and no evidence of cellulitis. MS/ Extremity: Pulses equal, no cyanosis. Neurovascular intact. Full, normal range of motion. 20:26 Cardiovascular: Exam negative for acute changes, Rate: normal, Rhythm: regular, Pulses: no pulse deficits are appreciated. 20:26 Respiratory: Exam negative for acute changes, respiratory distress, shortness of breath. 20:26 Abdomen/GI: Inspection: abdomen appears normal, Palpation: soft, in all quadrants, mild abdominal tenderness, in the right upper quadrant. 20:26 Back: pain, that is mild, of the right mid back. 20:26 Neuro: Exam negative for acute changes, Orientation: is normal, Mentation: is normal, Motor: is normal, moves all fours. Vital Signs: 20:09 BP 132 / 76; Pulse 82; Resp 16 S; Temp 97.4(TE); Pulse Ox 100% on R/A; Weight 77.11 kg ca1 (R); Height 5 ft. 2 in. (157.48 cm) (R); Pain 6/10; 20:49 BP 125 / 74; Pulse 74; Resp 17; Temp 98; Pulse Ox 99% on R/A; ll2 21:45 BP 125 / 70; Pulse 73; Resp 16; Pulse Ox 99% on R/A; ll2 22:50 BP 134 / 78; Pulse 72; Resp 16; Pulse Ox 99% on R/A; ll2 06/20 00:49 BP 130 / 80; Pulse 80; Resp 18; Temp 98; Pulse Ox 100% on R/A; mg2 06/19 20:09 Body Mass Index 31.09 (77.11 kg, 157.48 cm) ca1 MDM: 06/19 20:47 Patient medically screened. pm1 06/20 00:39 Data reviewed: vital signs. Data interpreted: Pulse oximetry: on room air is 99 %. pm1 Interpretation: normal. 00:41 Counseling: I had a detailed discussion with the patient and/or guardian regarding: the pm1 historical points, exam findings, and any diagnostic results supporting the discharge/admit diagnosis, lab results, radiology results, the need for outpatient follow up, to return to the emergency department if symptoms worsen or persist or if there are any questions or concerns that arise at home. 06/19 20:28 Order name: Urine Dipstick--Ancillary (enter results); Complete Time: 22:07 mw2 06/19 20:51 Order name: Basic Metabolic Panel; Complete Time: 22:07 pm1 06/19 20:51 Order name: CBC with Diff; Complete Time: 22:07 pm1 06/19 20:51 Order name: Hepatic Function; Complete Time: 22:07 pm1 06/19 20:51 Order name: Lipase; Complete Time: 22:07 pm1 06/19 20:51 Order name: Urine Microscopic Only; Complete Time: 22:07 pm1 06/19 20:51 Order name: CT Abd/Pelvis - IV Contrast Only pm1 06/19 23:18 Order name: Chest Single View XRAY pm1 06/19 23:18 Order name: COVID-19 pm1 06/19 23:18 Order name: Flu; Complete Time: 00:40 pm1 06/19 20:26 Order name: Urine Dipstick-Ancillary (obtain specimen); Complete Time: 20:26 ca1 06/19 20:51 Order name: IV Saline Lock; Complete Time: 21:35 pm1 06/19 20:51 Order name: Labs collected and sent; Complete Time: 21:35 pm1 Administered Medications: 06/19 21:35 Drug: NS 0.9% 1000 ml Route: IV; Rate: 1000 ml; Site: right forearm; 2 06/20 00:42 Follow up: Response: No adverse reaction; IV Status: Completed infusion; IV Intake: mg2 1000ml 06/19 22:05 Drug: morphine 4 mg Route: IVP; Site: right forearm; mg2 23:29 Follow up: Response: No adverse reaction ll2 22:35 Drug: Benadryl 25 mg Route: IVP; Site: right forearm; mg2 23:28 Follow up: Response: No adverse reaction ll2 23:37 Drug: Rocephin 1 grams Route: IV; Rate: calculated rate; Site: right forearm; ll2 06/20 00:42 Follow up: Response: No adverse reaction; IV Status: Completed infusion mg2 Disposition: 03:35 Co-signature as Attending Physician, Luis Britton MD. rn Disposition: 06/20/20 00:41 Discharged to Home. Impression: Pneumonia, unspecified organism. - Condition is Stable. - Discharge Instructions: Community-Acquired Pneumonia, Adult. - Prescriptions for Zithromax Z- Andrew 250 mg Oral Tablet - take 1 tablet by ORAL route as directed for 5 days Day 1 - take two (2) tablets one time. Day 2, 3, 4 , 5 take one (1) tablet once daily.; 6 tablet. - Medication Reconciliation Form, Thank You Letter, Antibiotic Education, Prescription Opioid Use form. - Follow up: Emergency Department; When: As needed; Reason: Worsening of condition. Follow up: Private Physician; When: 2 - 3 days; Reason: Recheck today's complaints, Continuance of care, Re-evaluation by your physician. - Problem is new. - Symptoms have improved. Signatures: Dispatcher [employer] EDMS Luis Britton MD MD rn Marinas, Patrick, HOLLIE DIRECTOR FINANCIAL SERVICES pm1 Fuad Dorantes RN RN mg2 Rachael Pena RN RN ca1 Caty Wyatt RN RN ll2 Corrections: (The following items were deleted from the chart) 00:08 06/19 20:26 Constitutional: Negative for fever, chills, and weight loss, pm1 Cardiovascular: Negative for chest pain, palpitations, and edema, Respiratory: Negative for shortness of breath, cough, wheezing, and pleuritic chest pain, Abdomen/GI: Negative for abdominal pain, nausea, vomiting, diarrhea, and constipation, pm1 06/20 00:49 00:41 06/20/2020 00:41 Discharged to Home. Impression: Pneumonia, unspecified organism. mg2 Condition is Stable. Discharge Instructions: Community-Acquired Pneumonia, Adult. Prescriptions for Zithromax Z-Andrew 250 mg Oral Tablet - take 1 tablet by ORAL route as directed for 5 days Day 1 - take two (2) tablets one time. Day 2, 3, 4 , 5 take one (1) tablet once daily.; 6 tablet. and Forms are Medication Reconciliation Form, Thank You Letter, Antibiotic Education, Prescription Opioid Use. Follow up: Emergency Department; When: As needed; Reason: Worsening of condition. Follow up: Private Physician; When: 2 - 3 days; Reason: Recheck today's complaints, Continuance of care, Re-evaluation by your physician. Problem is new. Symptoms have improved. pm1
--- NOTE | 2020-06-20 07:15 | RAD REPORT ---
EXAM DESCRIPTION: RAD - Chest Single View - 06/19/2020 11:32 pm CLINICAL HISTORY: COUGH COMPARISON: January 2016 TECHNIQUE: AP portable chest image was obtained 06/19/2020 11:32 pm . FINDINGS: Patchy airspace opacification seen in the lung cornelius more prominent in the right base. In terstitial markings are increased as well. Heart and vasculature are normal. No measurable pleural effusion and no pneumothorax. No acute bony abnormality seen. No acute aortic findings suspected. IMPRESSION: Patchy bilateral airspace opacification present. Pattern is nonspecific. Viral pneumonias, including COVID-19 pneumonia, would be primary consideratio ns in the current clinical environment.
--- NOTE | 2020-06-20 11:19 | RAD REPORT ---
EXAM DESCRIPTION: CT - Abdomen Pelvis W Contrast - 06/20/2020 6:55 am CLINICAL HISTORY: FLANK PAIN TECHNIQUE: Contiguous axial images obtained through the abdomen and pelvis following the uneventful administration of IV contrast. Coronal and sagittal reformatted images were provided. This exam was performed according to our departmental dose-optimization program, which includes autom ated exposure control, adjustment of the mA and/or kV according to patient size and/or use of iterati ve reconstruction technique. COMPARISON: None available for comparison. FINDINGS: Lung bases: Right lower lobe patchy groundglass opacities and consolidative changes. Liver: The liver is enlarged. Gallbladder and biliary system: Prior cholecystectomy. Mild intrahepatic and extrahepatic biliary dil atation. Pancreas: Unremarkable Spleen: Unremarkable Adrenals: Unremarkable Kidneys: Normal renal cortical enhancement. No calculi. No hydronephrosis. Bowel: No obstruction. No appreciable mucosal thickening. Appendix: Pericecal suture material/clips suggestive of prior appendectomy. No findings to suggest ac morgan appendicitis. Urinary bladder: Unremarkable Reproductive: Unremarkable as visualized Lymph nodes: No pathologically enlarged lymph nodes. Peritoneum: No focal fluid collection. No free air. Vessels: Mild to moderate atherosclerotic disease. No abdominal aortic aneurysm. Abdominal wall: Tiny fat-containing umbilical hernia. Bones: Multilevel spondylosis. No acute fracture. IMPRESSION: 1. No acute abnormality identified within the abdomen and pelvis. 2. Right lower lobe infiltrates. Imaging features can be seen with viral pneumonia, though are nons pecific and can occur with a variety of infectious and noninfectious processes. PneInd Reference: htt ps://pubs.rsna.org/doi/full/[email or web address] 3. Other findings as above. Electronically signed by: Jadyn Lees MD 06/19/2020 10:53 PM DENTAL TREATMENT COORDINATOR Due to temporary technical issues with the PACS/Fluency reporting system, reports are being signed by the in house radiologist without review as a courtesy to ensure prompt reporting. The interpreting r adiologist is fully responsible for the content of the report.
[2020-06-22 15:12] VITALS: TEMP 98
[2020-06-22 15:15] VITALS: BP 130/80; O2SAT 100
== END 2020-06-20 00:49 | disposition home or self-care (01) ==
LOC: ER 20:01
DX: J18.9 Pneumonia, unspecified organism (principal); Z20.828 Contact with and (suspected) exposure to other viral communicable diseases; F17.210 Nicotine dependence, cigarettes, uncomplicated; I10 Essential (primary) hypertension; Z88.8 Allergy status to other drugs, medicaments and biological substances
CPT/HCPCS: 85025; 80048; 36415; 80076; 83690; 87804 ×2; 74177; 71045; U0002; Q9967; J1200; J0696; J7030; 81003; 81015; 96361; 96365; 96375; 99284

== ENCOUNTER 2020-12-13 15:29 | Emergency (ER) | payer OTHER ==
--- OUTSIDE RECORDS SUMMARY | 2020-12-13 15:32 | XMS REPORT | Continuity of Care Document ---
:1960 Author Organization [facility] t Address [address] [place] [address] [address] [place] [address] Care Team Providers Name Role Phone Yaquelin [...] Source Natural brother Heart disease [place] [facility] Natural father Heart disease [place] Gnosticism Natural mother Cancer [facility] thodist Social History Social Habit Start Date Stop Date Quantity Comments Source History [facility] Alcohol Std Drinks Method ist History [facility] Alcohol Binge Gnosticism History of tobacco Cigarette Smoker [place] use Gnosticism Cigarette 2018-07-13 2018-07-13 [place] pack-years 00:00:00 00:00:00 Gnosticism Tobacco use and 2018-07-13 2018-07-13 Former user [place] exposure 00:00:00 00:00:00 Gnosticism Alcohol intake 2018-07-13 2018-07-13 Current drinker [place] 00:00:00 00:00:00 of alcohol Gnosticism (finding) Cigarettes smoked 2018-07-13 2018-07-13 [place] current (pack per 00:00:00 00:00:[address] day) - Reported History SDOH 2018-07-10 2018-07-10 1 [place] Alcohol Frequency 00:00:00 00:00:[address] Alcohol Comment 2018-07-10 2018-07-10 very rarely [place] 00:00:00 00:00:00 Gnosticism Sex [birth year] At [birth year] [place] 00:00:00 00:00:00 Gnosticism Smoking Status Start Date Stop Date Source Current every day smoker 2018-07-13 00:00:00 Javier higuera Gnosticism Medications Ordered Filled Start Stop Current Ordering Indication Dosage Frequency Signature Comments Components Source Medication Medication Date Date Medication? Clinician (SIG) Name Name carvedilol Yes 12.5mg Q.5D Take 12.5 [place] (COREG) 1-05 mg by Methodi 12.5 MG 12:02: mouth 2 st tablet 22 (two) times a day. HYDROcodone 2019- Yes 1{tbl} Q8H Take 1 [place] -acetaminop 1-05 tablet by Met frandy maxwell (NORCO) 12:02: mouth st 7.5-325 mg 22 every 8 per tablet (eight) hours as needed for moderate pain. ranitidine 2018- Yes 150mg Q.5D Take 150 [place] (ZANTAC) 1-05 mg by Methodi 150 MG 12:02: mouth 2 st tablet 22 (two) times a day. pregabalin 2018- Yes 50mg Q.5D Take 50 mg [place] (LYRICA) 50 1-05 by mouth 2 Me thodi MG capsule 12:02: (two) st 22 times a day. levothyroxi 2019-0 Yes 125ug QD Take 125 [place] ne 1-05 mcg by Methodi (SYNTHROID, 12:02: mouth st LEVOXYL) 22 every 125 mcg morning. tablet temazepam 2018- Yes 30mg QD Take 30 mg [place] (RESTORIL) 1-05 by mouth Metho di 30 mg 12:02: nightly as st capsule 22 needed for sleep. dextroamphe Yes 30mg Q.5D Take 30 mg [place] tamine-amph 1-05 by mouth 2 Me thodi etamine 12:02: (two) st (ADDERALL) 22 times a 30 mg day. tablet terbinafine Yes 250mg QD Take 250 [place] HCl 1-05 mg by Methodi (LamiSIL) 12:02: mouth st 250 mg 22 daily. tablet Procedures This patient has no known procedures. Plan of Care Planned Activity Planned Date Details Comments Source Future Scheduled 2021-02-04 INFLUENZA VACCINE [place] [facility] Test 00:00:00 [code = INFLUENZA VACCINE] Future Scheduled 2011 BREAST CANCER [facility] thodist Test 00:00:00 SCREENING [code = BREAST CANCER SCREENING] Future Scheduled 2011 COLONOSCOPY SCREENING [place] [facility] Test 00:00:00 [code = COLONOSCOPY SCREENING] Future Scheduled 2011 SHINGLES VACCINES [place] [facility] Test 00:00:00 (#1) [code = SHINGLES VACCINES (#1)] Future Scheduled 1982 Screening for [facility] thodist Test 00:00:00 malignant neoplasm of cervix (procedure) [code = 891953191] Future Scheduled 1979 Hepatitis C screening [place] [facility] Test 00:00:00 (procedure) [code = 164348338] Future Scheduled 1973 COVID-19 VACCINE (1) Javier jamesn Gnosticism Test 00:00:00 [code = COVID-19 VACCINE (1)] Encounters Start End Encounter Admission Attending Care Care Encounter Source Date/Time Date/Time Type Type Clinicians Facility Department ID 2019-02-01 2019-02-01 Telephone [facility] [id number] 00:00:00 00:00:00 Otto Nuno [id number] Radha [id number] Kelly [id number] nal [address] Building Results This patient has no known results.
[2020-12-13 16:45] LABS: Basophils % 0.9 % (0-1.3); Hematocrit 39.7 % (36.0-45.0); Lymphocytes % 19.6 % (15.3-44.8); RBC Red Blood Cell Count 4.41 M/uL (3.86-4.86)
[2020-12-13] MEDS ORDERED: MEPERIDINE HCL 25 MG/ML SYR ONE (16:45)
[2020-12-13 17:06] LABS: BUN Blood Urea Nitrogen 18 mg/dL (7-18); Bicarbonate 29 mmol/L (21-32); Glucose Level 84 mg/dL (74-106); Potassium 4.2 mmol/L (3.5-5.1); Sodium Level 140 mmol/L (136-145); Troponin (Emerg Dept Use Only) < 0.02 ng/mL (0.0-0.045)
--- NOTE | 2020-12-13 17:48 | RAD REPORT ---
EXAM DESCRIPTION: CT - Chest For Pe Angio - 12/13/2020 5:37 pm CLINICAL HISTORY: Chest pain. right posterior thoracic pain COMPARISON: Chest For Pe Angio dated 01/28/2016 TECHNIQUE: CT angiogram of the pulmonary arteries was performed with MIP. All CT scans are performed using dose optimization technique as appropriate and may include automated exposure control or mA/KV adjustment according to patient size. FINDINGS: No evidence of pulmonary thromboembolism. No acute aortic finding demonstrated. Respiratory artifact is present. 8 mm area of nodularity is seen right upper lobe (44/123). 6 mm area of nodularity in the anterior right middle lobe region (49/123) No significant pericardial or pleural fluid. No concerning bony finding. IMPRESSION: No evidence of pulmonary thromboembolism. Right-sided pulmonary nodules are present. Recommend followup CT chest assessment in 3-6 months.
--- NOTE | 2020-12-13 18:03 | EDPHYS ---
Physician Documentation [facility] Name: Ronnell Rubalcava Age: 60 yrs Sex: Female : 1960 Arrival Date: 12/13/2020 Time: 15:33 Bed 6 Private MD: ED Physician Luis Britton HPI: 12/13 15:54 This 60 yrs old Female presents to ER via Ambulatory with complaints of Back rn Pain. 15:54 The patient presents with pain that is chronic, with no known mechanism of injury. The rn symptoms are located in the right subscapular pain. 15:54 Onset: The symptoms/episode began/occurred 6 month(s) ago. The pain does not radiate. rn Associated signs and symptoms: Pertinent negatives: abdominal pain, dysuria, fever, hematuria, incontinence, nausea, numbness, tingling, urinary retention, vomiting, weakness. Modifying factors: The patient symptoms are alleviated by nothing, the patient symptoms are aggravated by movement, deep breath. Severity of symptoms: At their worst the symptoms were mild, in the emergency department the symptoms are unchanged. The patient has experienced similar episodes in the past. The patient has not recently seen a physician. Reports right subscapular pain for "months", no trauma or injury. No fever. Reports "feels like something is growing". Worse with movement and deep breath. No hemoptysis, no hx of dvt/PE, no hx of OK. Was going to get MRI on Friday but co-pay too high. . Historical: - Allergies: 15:44 Tegretol; jl7 - PMHx: 15:44 Back pain; Fibromyalgia; graves disease; Hypertension; hyperthyroidism; Hypothyroidism; jl7 - PSHx: 15:44 Cholecystectomy; Appendectomy; ; jl7 - Immunization history:: Adult Immunizations up to date. - Social history:: Smoking status: Patient reports the use of cigarette tobacco products, smokes one-half pack cigarettes per day. - Family history:: not pertinent. - Hospitalizations: : No recent hospitalization is reported. ROS: 15:54 Constitutional: Negative for fever, chills, and weight loss, Eyes: Negative for injury, rn pain, redness, and discharge, Neck: Negative for injury, pain, and swelling, Cardiovascular: Negative for palpitations, and edema, Respiratory: Negative for shortness of breath, cough, wheezing, and pleuritic chest pain, Abdomen/GI: Negative for abdominal pain, nausea, vomiting, diarrhea, and constipation, Back: + right subscapular pain : Negative for injury, bleeding, discharge, and swelling, MS/Extremity: Negative for injury and deformity, Skin: Negative for injury, rash, and discoloration, Neuro: Negative for headache, weakness, numbness, tingling, and seizure. Exam: 15:54 Constitutional: This is a well developed, well nourished patient who is awake, alert, internet e commerce specialist to room without difficulty or assistance. Head/Face: Normocephalic, atraumatic. Cardiovascular: Regular rate and rhythm. No pulse deficits. Respiratory: No increased work of breathing, no retractions or nasal flaring. Abdomen/GI: soft, non-tender Back: No spinal tenderness. Skin: Warm, dry, no rashes MS/ Extremity: Pulses equal, no cyanosis. Neurovascular intact. Full, normal range of motion. Equal circumference. Neuro: Awake and alert, GCS 15 Vital Signs: 15:40 BP 148 / 94; Pulse 79; Resp 17; Temp 97.7; Pulse Ox 99% on R/A; Weight 80.29 kg (R); jl7 Pain 9/10; 15:56 BP 142 / 75; Pulse 83; Resp 18; Pulse Ox 97% on R/A; Pain 9/10; ld1 16:59 BP 114 / 78; Pulse 70; Resp 18; Pulse Ox 99% on R/A; ld1 18:00 Pulse 128; Resp 26; Pulse Ox 100% on R/A; ld1 18:35 Pulse 125; Resp 28; Pulse Ox 100% on R/A; ld1 MDM: 15:46 Patient medically screened. rn 18:00 Differential diagnosis: arthritis, chronic back pain, Osteoarthritis sprain, rn Ureterolithiasis cancer, pleurisy, pleural effusion. Data reviewed: vital signs, nurses notes, old medical records, radiologic studies, CT scan, and as a result, I will discharge patient. Counseling: I had a detailed discussion with the patient and/or guardian regarding: the historical points, exam findings, and any diagnostic results supporting the discharge/admit diagnosis, radiology results, the need for outpatient follow up, to return to the emergency department if symptoms worsen or persist or if there are any questions or concerns that arise at home. Special discussion: I discussed with the patient/guardian in detail that at this point there is no indication for admission to the hospital. It is understood, however, that if the symptoms persist or worsen the patient needs to return immediately for re-evaluation. 12/13 15:54 Order name: CBC with Diff; Complete Time: 17:25 rn 12/13 15:54 Order name: Basic Metabolic Panel; Complete Time: 17:25 rn 12/13 15:54 Order name: CT Chest For PE Angio; Complete Time: 17:50 rn 12/13 15:54 Order name: Troponin (emerg Dept Use Only); Complete Time: 17:25 rn 12/13 15:54 Order name: EKG; Complete Time: 15:55 rn 12/13 15:54 Order name: IV Start; Complete Time: 16:41 rn 12/13 15:54 Order name: EKG - Nurse/Tech; Complete Time: 16:50 rn Administered Medications: 16:41 Drug: Demerol (meperidine) 25 mg Route: IVP; Site: left antecubital; ld1 Disposition: 12/13/20 18:02 Discharged to Home. Impression: Back pain. - Condition is Stable. - Discharge Instructions: Back Pain, Adult, Chronic Back Pain. - Medication Reconciliation Form, Thank You Letter, Antibiotic Education, Prescription Opioid Use form. - Follow up: Private Physician; When: As needed; Reason: Recheck today's complaints, Re-evaluation by your physician. - Problem is an ongoing problem. - Symptoms have improved. Signatures: Dispatcher [employer] EDMS Luis Britton MD MD rn Leal, Jahala, RN RN jl7 Laly Beasley RN RN ld1 Corrections: (The following items were deleted from the chart) 18:36 18:02 12/13/2020 18:02 Discharged to Home. Impression: Back pain. Condition is Stable. ld1 Forms are Medication Reconciliation Form, Thank You Letter, Antibiotic Education, Prescription Opioid Use. Follow up: Private Physician; When: As needed; Reason: Recheck today's complaints, Re-evaluation by your physician. Problem is an ongoing problem. Symptoms have improved. rn
--- NOTE | 2020-12-13 18:03 | ER ---
Nurse's Notes [facility] Name: Ronnell Rubalcava Age: 60 yrs Sex: Female : 1960 Arrival Date: 12/13/2020 Time: 15:33 Bed 6 Private MD: Diagnosis: Back pain Presentation: 12/13 15:40 Chief complaint: Patient states: I was here a couple months ago for the same thing, mid jl7 back pain that hasn't gotten any better. Had an MRI scheduled for Friday but couldn't get it done. I feel like something is growing in there pressing on my muscles. Coronavirus screen: Client denies travel out of the [place] in the last 14 days. At this time, the client does not indicate any symptoms associated with coronavirus-19. Ebola Screen: No symptoms or risks identified at this time. Initial Sepsis Screen: Does the patient meet any 2 criteria? No. Patient's initial sepsis screen is negative. Does the patient have a suspected source of infection? No. Patient's initial sepsis screen is negative. Risk Assessment: Do you want to hurt yourself or someone else? Patient reports no desire to harm self or others. Onset of symptoms is unknown. 15:40 Method Of Arrival: Ambulatory [facility] 15:40 Acuity: BRYANT 3 jl7 Historical: - Allergies: 15:44 Tegretol; jl7 - PMHx: 15:44 Back pain; Fibromyalgia; graves disease; Hypertension; hyperthyroidism; Hypothyroidism; jl7 - PSHx: 15:44 Cholecystectomy; Appendectomy; ; jl7 - Immunization history:: Adult Immunizations up to date. - Social history:: Smoking status: Patient reports the use of cigarette tobacco products, smokes one-half pack cigarettes per day. - Family history:: not pertinent. - Hospitalizations: : No recent hospitalization is reported. Screenin:56 Abuse screen: Denies threats or abuse. Denies injuries from another. Nutritional ld1 screening: No deficits noted. Tuberculosis screening: No symptoms or risk factors identified. Fall Risk None identified. Assessment: 15:56 General: Appears in no apparent distress. uncomfortable, Behavior is calm, cooperative, ld1 appropriate for age. Pain: Complains of pain in low back area Pain currently is 9 out of 10 on a pain scale. Quality of pain is described as throbbing, Pain began Pt states pain has been present for 2 months. Is continuous. Neuro: Level of Consciousness is awake, alert, obeys commands, Oriented to person, place, time, situation, Appropriate for age. Cardiovascular: Capillary refill < 3 seconds Patient's skin is warm and dry. Respiratory: Airway is patent Respiratory effort is even, unlabored, Respiratory pattern is regular, symmetrical. GI: Abdomen is round non-distended. : No signs and/or symptoms were reported regarding the genitourinary system. EENT: No signs and/or symptoms were reported regarding the EENT system. Derm: No signs and/or symptoms reported regarding the dermatologic system. Musculoskeletal: No signs and/or symptoms reported regarding the musculoskeletal system. 16:59 Reassessment: No changes from previously documented assessment. Patient and/or family ld1 updated on plan of care and expected duration. Pain level reassessed. Patient is alert, oriented x 3, equal unlabored respirations, skin warm/dry/pink. Patient states feeling better. 18:00 Reassessment: No changes from previously documented assessment. Patient and/or family ld1 updated on plan of care and expected duration. Pain level reassessed. Patient is alert/active/playful, equal unlabored respirations, skin warm/dry/pink. 18:34 Reassessment: Patient appears in no apparent distress at this time. Patient is ld1 alert/active/playful, equal unlabored respirations, skin warm/dry/pink. EMS at bedside for transfer. Vital Signs: 15:40 BP 148 / 94; Pulse 79; Resp 17; Temp 97.7; Pulse Ox 99% on R/A; Weight 80.29 kg (R); jl7 Pain 9/10; 15:56 BP 142 / 75; Pulse 83; Resp 18; Pulse Ox 97% on R/A; Pain 9/10; ld1 16:59 BP 114 / 78; Pulse 70; Resp 18; Pulse Ox 99% on R/A; ld1 18:00 Pulse 128; Resp 26; Pulse Ox 100% on R/A; ld1 18:35 Pulse 125; Resp 28; Pulse Ox 100% on R/A; ld1 ED Course: 15:33 Patient arrived in ED. mr 15:42 Triage completed. jl7 15:44 Arm band placed on right wrist. jl7 15:46 Luis Britton MD is Attending Physician. rn 15:56 Laly Beasley, RN is Primary Nurse. ld1 15:56 Patient has correct armband on for positive identification. Bed in low position. Call ld1 light in reach. Side rails up X2. Pulse ox on. NIBP on. Door closed. Noise minimized. Warm blanket given. 17:36 CT Chest For PE Angio In Process Unspecified. EDMS 18:35 No provider procedures requiring assistance completed. Patient did not have IV access ld1 during this emergency room visit. Administered Medications: 16:41 Drug: Demerol (meperidine) 25 mg Route: IVP; Site: left antecubital; ld1 Outcome: 18:02 Discharge ordered by . rn 18:35 Transferred by ground EMS to [facility]. ld1 18:35 Condition: stable 18:35 Discharge instructions given to family, Instructed on the need for transfer, Demonstrated understanding of instructions, follow-up care. 18:36 Patient left the ED. ld1 Signatures: Dispatcher [employer] [facility] ArredondoAlicia Luis Britton MD MD rn Leal, Jahala, RN RN jl7 Laly Beasley, RN RN ld1
[2020-12-13 18:42] VITALS: TEMP 97.7
[2020-12-13 18:46] VITALS: BP 114/78
[2020-12-13 18:48] VITALS: O2SAT 100
== END 2020-12-13 18:36 | disposition home or self-care (01) ==
LOC: ER 15:29
DX: M54.9 Dorsalgia, unspecified (principal); I10 Essential (primary) hypertension; F17.210 Nicotine dependence, cigarettes, uncomplicated; Z88.8 Allergy status to other drugs, medicaments and biological substances
CPT/HCPCS: 85025; 80048; 36415; 84484; 71275; Q9967; J2175; 93005; 96374; 99285

== ENCOUNTER 2021-02-02 15:23 | Emergency (ER) | payer OTHER ==
--- OUTSIDE RECORDS SUMMARY | 2021-02-02 15:26 | XMS REPORT | Continuity of Care Document ---
:1960 Author Organization [facility] t Address [address] [place] [address] [address] [place] [address] Care Team Providers Name Role Phone Yaquelin Gama MD Primary Care Physician Beck ACEVES Attending Clinician Problems Condition Condition Condition Status Onset Resolution Last Treating Co mments Source Name Details Category Date Date Treatment Clinician Date Narrowing Narrowing Disease Active Met hodi of lumbar of lumbar 07-10 st spine spine 00:00: Hospita 00 l Allergies, Adverse Reactions, Alerts Allergy Allergy Status Severity Reaction(s) Onset Inactive Treating Comm ents Source Name Type Date Date Clinician Chlorhex Propensi Active Itching Itching Meth alin idine ty to 07-[address] Gluconat adverse 00:00: areas she Hosp opal e reaction 00 used with l s to the [facility] drug wipes this morning. Carbamaz Propensi Active 2017-07 Method i epine ty to 08-04 st adverse 00:00: Hospita reaction 00 l s to drug Family History Family Member Diagnosis Comments Start Date Stop Date Source Natural brother [facility] father [facility] Natural mother Cancer Zoroastrianism [facility] sister Zoroastrianism [facility] Social History Social Habit Start Date Stop Date Quantity Comments Source History SDOH Zoroastrianism Alcohol Std Drinks Hospit al History SDOH Zoroastrianism Alcohol Binge Hospital History of tobacco Cigarette Smoker Zoroastrianism use [facility] Cigarettes smoked 2018-07-13 2018-07-[address] current (pack per 00:00:00 00:00:00 Hospita l day) - Reported Cigarette 2018-07-13 2018-07-13 Zoroastrianism pack-years 00:00:00 00:00:00 Hospital Tobacco use and 2018-07-13 2018-07-13 Former user [facility] exposure 00:00:00 00:00:00 Hospital Alcohol intake 2018-07-13 2018-07-13 Current drinker [facility] 00:00:00 00:00:00 of alcohol Hospital (finding) History SDOH 2018-07-10 2018-07-10 1 Zoroastrianism Alcohol Frequency 00:00:00 00:00:00 Hospita l Alcohol Comment 2018-07-10 2018-07-10 very rarely [facility] 00:00:00 00:00:00 [facility] Sex Assigned At [birth year] Zoroastrianism 00:00:00 00:00:00 Hospital Smoking Status Start Date Stop Date Source Current every day smoker 2018-07-13 00:00:00 Met [facility] Medications Ordered Filled Start Stop Current Ordering Indication Dosage Frequency Signature Comments Components Source Medication Medication Date Date Medication? Clinician (SIG) Name Name carvedilol Yes 12.5mg Q.5D Take 12.5 Method[facility] (COREG) 1-[address] 12.5 MG 18:02: mouth 2 Hospita tablet 22 (two) l times a day. HYDROcodone 2019-0 Yes 1{tbl} Q8H Take 1 Me thodi -acetaminop 1-[address] (NORCO) 18:02: mouth Hospi ta 7.5-325 mg 22 every 8 l per tablet (eight) hours as needed for moderate pain. ranitidine 2019- Yes 150mg Q.5D Take 150 Me [facility] (ZANTAC) 1-[address] 150 MG 18:02: mouth 2 Hospita tablet 22 (two) l times a day. pregabalin 2019-0 Yes 50mg Q.5D Take 50 mg M ethodi (LYRICA) 50 1-[address] MG capsule 18:02: (two) Hospit a 22 times a l day. levothyroxi 2019-0 Yes 125ug QD Take 125 M ethodi ne 1-[address] (SYNTHROID, 18:02: mouth Hospi ta LEVOXYL) 22 every l 125 mcg morning. tablet temazepam 2019-0 Yes 30mg QD Take 30 mg Me thodi (RESTORIL) 1-[address] 30 mg 18:02: nightly as Hospit a capsule 22 needed for l sleep. dextroamphe 2019-0 Yes 30mg Q.5D Take 30 mg Methodi tamine-amph 1-[address] etamine 18:02: (two) Hospita (ADDERALL) 22 times a l 30 mg day. tablet terbinafine 2019-0 Yes 250mg QD Take 250 M ethodi HCl 1-[address] (LamiSIL) 18:02: mouth Hospita 250 mg 22 daily. l tablet Procedures This patient has no known procedures. Plan of Care Planned Activity Planned Date Details Comments Source Future Scheduled Test COVID-19 VACCINE (1) [facility] [code = COVID-19 VACCINE (1)] Future Scheduled Test Hepatitis C screening [facility] (procedure) [code = 150089210] Future Scheduled Test Screening for malignant [facility] neoplasm of cervix (procedure) [code = 136010647] Future Scheduled Test BREAST CANCER SCREENING [facility] [code = BREAST CANCER SCREENING] Future Scheduled Test COLONOSCOPY SCREENING [facility] [code = COLONOSCOPY SCREENING] Future Scheduled Test SHINGLES VACCINES (#1) [facility] [code = SHINGLES VACCINES (#1)] Future Scheduled Test INFLUENZA VACCINE [code [facility] = INFLUENZA VACCINE] Encounters Start End Encounter Admission Attending Care Care Encounter Source Date/Time Date/Time Type Type Clinicians Facility Department ID 2019-02-01 2019-02-01 Telephone Beck [facility] [id number] 00:00:00 00:00:00 Otto Nuno [id number] Radha [id number] [facility] [id number] [address] Results This patient has no known results.
--- NOTE | 2021-02-02 16:25 | RAD REPORT ---
EXAM DESCRIPTION: RAD - Chest Pa And Lat (2 Views) - 02/02/2021 4:16 pm CLINICAL HISTORY: CONGESTION COMPARISON: Portable June 2020 TECHNIQUE: Frontal and lateral views of the chest were obtained. FINDINGS: The lungs are clear. Interstitial pattern matches comparison. Heart size is normal and ce ntral vasculature is within normal limits. No pleural effusion or pneumothorax seen. No acute bony finding noted. No aortic abnormality. IMPRESSION: No acute cardiopulmonary process.
[2021-02-02] MEDS ORDERED: ACETAMINOPHEN 500 MG TAB ONE (20:40)
[2021-02-02] MEDS ORDERED: MECLIZINE HCL 12.5 MG TAB ONE (20:40)
--- NOTE | 2021-02-02 20:49 | RAD REPORT ---
EXAM DESCRIPTION: CT - Head Brain Wo Cont - 02/02/2021 8:28 pm CLINICAL HISTORY: HEADACHE COMPARISON: February 2019 TECHNIQUE: Axial 5 mm thick images of the head were obtained without IV contrast. All CT scans are performed using dose optimization technique as appropriate and may include automated exposure control or mA/KV adjustment according to patient size. FINDINGS: No intracranial hemorrhage, mass, edema or shift of mid-line structures. No acute infarcti on changes seen. No abnormal extra-axial fluid collections. No significant atrophy. Patient does appe ar to have some minimal chronic ischemic change but this is not clearly different from the 2019 erin rison. Mastoid air cells are clear. Air-fluid level is present in the right maxillary sinus. No acute bony findings. IMPRESSION: No intracranial acute finding. No intracranial changes from 2019 comparison. Right maxillary acute sinusitis.
--- NOTE | 2021-02-02 21:10 | ER ---
Nurse's Notes [facility] Name: Ronnell Rubalcava Age: 60 yrs Sex: Female : 1960 Arrival Date: 02/02/2021 Time: 15:29 Bed DIS2 Private MD: Josh Jamison E Diagnosis: Acute maxillary sinusitis;Acute bronchitis, unspecified Presentation: 02/02 15:55 Chief complaint: Patient states: i have been coughing since the . i was in tw2 [place] and got tested and it was negative on the but the nurse told me she thinks that it is COVID. i have a runny nose, eyes watering, congestion, sometimes cant hear out of my ears from being congested, im coughing and i have rib pain. Coronavirus screen: congestion, cough unrelated to allergies, fatigue, headache, muscle pain, nausea, runny nose, sore throat, Client presents with at least one sign or symptom that may indicate coronavirus-19. Standard/surgical mask placed on the client. Provider contacted for isolation considerations. Ebola Screen: Patient denies travel to an Ebola-affected area in the 21 days before illness onset. Initial Sepsis Screen: Does the patient meet any 2 criteria? No. Patient's initial sepsis screen is negative. Does the patient have a suspected source of infection? No. Patient's initial sepsis screen is negative. Risk Assessment: Do you want to hurt yourself or someone else? Patient reports no desire to harm self or others. Onset of symptoms was February 02, 2021. 15:55 Method Of Arrival: Ambulatory tw2 15:55 Acuity: BRYANT 3 tw2 18:51 Acuity: BRYANT 3 iw Triage Assessment: 15:54 General: Appears in no apparent distress. Behavior is calm, cooperative, appropriate tw2 for age. Pain: Denies pain. EENT: Reports nasal congestion nasal discharge. Respiratory: Reports shortness of breath at rest on exertion cough that is. GI: Reports diarrhea, nausea. Historical: - Allergies: 15:53 Tegretol; tw2 - Home Meds: 15:53 Zolpidem Tartrate Oral [Active]; quetiapine Oral [Active]; topiramate Oral [Active]; tw2 levothyroxine oral [Active]; [place] Oral three times a day for Pain [Active]; escitalopram oxalate Oral [Active]; Hydrocodone-Acetaminophen Oral [Active]; Cyclobenzaprine Oral [Active]; carvedilol Oral [Active]; - PMHx: 15:53 Fibromyalgia; hyperthyroidism; Hypertension; graves disease; Back pain; Hypothyroidism; tw2 - Immunization history:: Client reports receiving the 2nd dose of the Covid vaccine. - Social history:: Smoking status: . Screenin:58 Abuse screen: Denies threats or abuse. Nutritional screening: No deficits noted. tw2 Tuberculosis screening: No symptoms or risk factors identified. Fall Risk None identified. Assessment: 20:08 General: Appears in no apparent distress. uncomfortable, Behavior is calm, cooperative. bb Neuro: Level of Consciousness is awake, alert, obeys commands, Oriented to person, place, time, situation. Cardiovascular: Capillary refill < 3 seconds Patient's skin is warm and dry. Respiratory: Respiratory effort is even, unlabored, Respiratory pattern is regular. GI: No signs and/or symptoms were reported involving the gastrointestinal system. Derm: Skin is pink, warm \T\ dry. Musculoskeletal: Circulation, motion, and sensation intact. 21:25 Reassessment: Patient is alert, oriented x 3, equal unlabored respirations, skin bb warm/dry/pink. pt verbalized understanding of and agrees to plan of care discharge instructions given pt ambulated with steady gait to exit. Vital Signs: 15:55 BP 122 / 98; Pulse 80; Resp 18; Temp 97.9(TE); Pulse Ox 99% on R/A; tw2 21:28 BP 165 / 84; Pulse 74; Resp 16 S; Temp 97.5(TE); Pulse Ox 100% on R/A; bb ED Course: 15:29 Patient arrived in ED. mr 15:29 Josh Jamison MD is Private Physician. mr 15:54 Arm band placed on. tw2 15:58 Triage completed. tw2 16:16 XRAY Chest Pa And Lat (2 Views) In Process Unspecified. EDMS 18:00 Jose Ramon Houston PA is PHCP. cp 18:00 Jose Ramon Kent MD is Attending Physician. cp 18:16 Lindsey Patricia, RN is Primary Nurse. iw 19:54 Primary Nurse role handed off by Lindsey Patricia, JANICE mw2 20:08 Garber, Lucia, RN is Primary Nurse. bb 20:08 Patient has correct armband on for positive identification. bb 20:28 CT Head Brain wo Cont In Process Unspecified. EDMS 21:30 No provider procedures requiring assistance completed. Patient did not have IV access bb during this emergency room visit. Administered Medications: 20:21 Drug: Tylenol 1000 mg Route: PO; bb 21:30 Follow up: Response: No adverse reaction bb 20:21 Drug: Meclizine 25 mg Route: PO; bb 21:30 Follow up: Response: No adverse reaction bb Outcome: 21:09 Discharge ordered by . renae 21:30 Discharged to home bb 21:30 Condition: stable 21:30 Discharge instructions given to patient, Instructed on discharge instructions, follow up and referral plans. medication usage, Demonstrated understanding of instructions, follow-up care, medications, Prescriptions given X 3. 21:30 Patient left the ED. bb Signatures: Dispatcher [employer] [facility] ArredondoAlicia mr Lucia Garber RN RN bb Lindsey Patricia, RN RN iw Jose Ramon Houston, MAUREEN PA Xuan Jj RN RN tw2 Bharat Clarke mw2 Corrections: (The following items were deleted from the chart) 18:17 18:16 Acuity: BRYANT 2 iw iw
--- NOTE | 2021-02-02 21:10 | EDPHYS ---
Physician Documentation [facility] Name: Ronnell Rubalcava Age: 60 yrs Sex: Female : 1960 Arrival Date: 02/02/2021 Time: 15:29 Bed DIS2 Private MD: Josh Jamison E ED Physician Jose Ramon Kent HPI: 02/02 20:15 This 60 yrs old Female presents to ER via Ambulatory with complaints of Cough.cp 20:15 The patient presents with dizziness, lightheadedness. Context: just prior to the cp episode the patient experienced abdominal pain, chest pain, numbness, palpitations, weakness. The patient or guardian reports cough, that is intermittent, sinus pressure/congestion. Onset: The symptoms/episode began/occurred 3 day(s) ago. Patient's baseline: Neuro: alert and fully oriented, Motor: no deficits, Ambulation: walks without assistance, Speech: normal. Historical: - Allergies: 15:53 Tegretol; tw2 - Home Meds: 15:53 Zolpidem Tartrate Oral [Active]; quetiapine Oral [Active]; topiramate Oral [Active]; tw2 levothyroxine oral [Active]; [place] Oral three times a day for Pain [Active]; escitalopram oxalate Oral [Active]; Hydrocodone-Acetaminophen Oral [Active]; Cyclobenzaprine Oral [Active]; carvedilol Oral [Active]; - PMHx: 15:53 Fibromyalgia; hyperthyroidism; Hypertension; graves disease; Back pain; Hypothyroidism; tw2 - Immunization history:: Client reports receiving the 2nd dose of the Covid vaccine. - Social history:: Smoking status: . ROS: 20:20 Constitutional: Negative for body aches, fever, poor PO intake. cp 20:20 Eyes: Negative for injury, pain, redness, and discharge. cp 20:20 ENT: Positive for hearing loss, rhinorrhea, sinus congestion, sore throat, Negative for drainage from ear(s), difficulty swallowing, difficulty handling secretions. 20:20 Cardiovascular: Negative for chest pain, palpitations. 20:20 Respiratory: Positive for cough, "sounds productive", Negative for shortness of breath, wheezing. 20:20 Abdomen/GI: Negative for abdominal pain, nausea, vomiting, and diarrhea. 20:20 : Negative for urinary symptoms. 20:20 Skin: Negative for rash. 20:20 Neuro: Positive for dizziness, headache, Negative for weakness. 20:20 All other systems are negative. Exam: 20:25 Constitutional: The patient appears in no acute distress, alert, awake, cp non-diaphoretic, non-toxic, well developed, well nourished. 20:25 Head/face: Sinus tenderness, that is moderate, is located over the right frontal cp sinus, left frontal sinus, right maxillary sinus and left maxillary sinus. 20:25 Eyes: Periorbital structures: appear normal, Pupils: equal, round, and reactive to light and accomodation, Extraocular movements: intact throughout, Conjunctiva: normal, no exudate, no injection, Sclera: no appreciated abnormality, Lids and lashes: appear normal, bilaterally. 20:25 ENT: External ear(s): are unremarkable, Ear canal(s): are normal, clear, TM's: dullness, bilaterally, Nose: is normal, Mouth: Lips: moist, Oral mucosa: moist, Posterior pharynx: Airway: no evidence of obstruction, patent, Tonsils: are normal in appearance, Uvula: midline, erythema, that is mild, exudate, is not appreciated. 20:25 Neck: ROM/movement: is normal, is supple, no meningismus, no nuchal rigidity. 20:25 Chest/axilla: Inspection: normal, Palpation: is normal, no crepitus, no tenderness. 20:25 Cardiovascular: Rate: normal. 20:25 Respiratory: the patient does not display signs of respiratory distress, Respirations: normal, no use of accessory muscles, no retractions, labored breathing, is not present, Breath sounds: decreased breath sounds, are not appreciated, rhonchi, are not appreciated, stridor, is not appreciated, + upper airway congestion. 20:25 Abdomen/GI: Exam negative for discomfort, distension, guarding, Inspection: abdomen appears normal. 20:25 Neuro: Orientation: to person, place \\T\\ time. Mentation: is normal, Cerebellar function: is grossly normal, Motor: moves all fours, strength is normal, Sensation: is normal, Gait: is steady, at a normal pace, without difficulty. Vital Signs: 15:55 BP 122 / 98; Pulse 80; Resp 18; Temp 97.9(TE); Pulse Ox 99% on R/A; tw2 21:28 BP 165 / 84; Pulse 74; Resp 16 S; Temp 97.5(TE); Pulse Ox 100% on R/A; bb MDM: 18:07 Patient medically screened. cp 20:30 Differential Diagnosis: Bronchitis Influenza Sinusitis Otitis Media Viral Syndrome cp Pneumonia. 21:09 Data reviewed: vital signs, nurses notes, lab test result(s), radiologic studies, CT cp scan, plain films. 21:09 Test interpretation: by ED physician or midlevel provider: ECG. Counseling: I had a cp detailed discussion with the patient and/or guardian regarding: the historical points, exam findings, and any diagnostic results supporting the discharge/admit diagnosis, lab results, radiology results, to return to the emergency department if symptoms worsen or persist or if there are any questions or concerns that arise at home. Response to treatment: the patient's symptoms have mildly improved after treatment, and as a result, I will discharge patient. ED course: VSS. Patient appears non-toxic and no signs of respiratory distress. Will discharge to home for continued monitoring. 02/02 17:02 Order name: Influenza Screen (a \\T\\ B); Complete Time: 19:40 cp 02/02 15:55 Order name: XRAY Chest Pa And Lat (2 Views); Complete Time: 17:01 tw2 02/02 17:02 Order name: Strep; Complete Time: 19:40 cp 02/02 18:51 Order name: Throat Culture EDOK 02/02 19:01 Order name: SARS-COV-2 RT PCR; Complete Time: 19:40 EDOK 02/02 20:14 Order name: CT Head Brain wo Cont; Complete Time: 20:55 cp Administered Medications: 20:21 Drug: Tylenol 1000 mg Route: PO; bb 21:30 Follow up: Response: No adverse reaction bb 20:21 Drug: Meclizine 25 mg Route: PO; bb 21:30 Follow up: Response: No adverse reaction bb Disposition: 21:20 Chart complete. cp Disposition Summary: 02/02/21 21:09 Discharge Ordered Location: Home cp Problem: new cp Symptoms: have improved cp Condition: Stable cp Diagnosis - Acute maxillary sinusitis cp - Acute bronchitis, unspecified cp Followup: cp - With: Private Physician - When: 2 - 3 days - Reason: Recheck today's complaints Discharge Instructions: - Discharge Summary Sheet cp - Acute Bronchitis, Adult cp - Sinusitis, Adult cp Forms: - Medication Reconciliation Form cp - Thank You Letter cp - Antibiotic Education cp - Prescription Opioid Use cp Prescriptions: - Ibuprofen 800 mg Oral Tablet - take 1 tablet by ORAL route every 8 hours As needed take with food; 30 tablet; cp Refills: 0, Product Selection Permitted - Augmentin 875-125 mg Oral Tablet - take 1 tablet by ORAL route every 12 hours for 10 days; 20 tablet; Refills: 0, cp Product Selection Permitted - Tessalon Perles 100 mg Oral Capsule - take 2 capsule by ORAL route every 8 hours As needed; 30 capsule; Refills: 0, cp Product Selection Permitted Addendum: 02/05/2021 06:48 Co-signature as Attending Physician, Jose Ramon Kent MD I agree with the assessment and c baires plan of care. Signatures: Dispatcher [employer] Jose Ramon Dotson MD MD cha Ballard, Brenda, RN RN bb Jose Ramon Houston PA PA Xuan Jj, RN RN tw2 Corrections: (The following items were deleted from the chart) 02/02 18:09 17:02 CORONAVIRUS+MR.LAB.BRZ ordered. [facility]
[2021-02-02 21:57] VITALS: BP 165/84; TEMP 97.5; O2SAT 100
== END 2021-02-02 21:30 | disposition home or self-care (01) ==
LOC: ER 15:23
DX: J20.9 Acute bronchitis, unspecified (principal); J01.00 Acute maxillary sinusitis, unspecified; Z20.822 Contact with and (suspected) exposure to COVID-19; M79.7 Fibromyalgia; I10 Essential (primary) hypertension; E03.9 Hypothyroidism, unspecified
CPT/HCPCS: 87070; 87081; 87804 ×2; 70450; 71046; 99283; U0003

== ENCOUNTER 2021-07-19 20:24 | Emergency (ER) | payer OTHER ==
--- OUTSIDE RECORDS SUMMARY | 2021-07-19 20:27 | XMS REPORT | Continuity of Care Document ---
:1960 Author Organization [facility] t Address [address] [place] [address] Care Team Providers Name Role Phone Yaquelin Gama MD Primary Care Physician Beck ACEVES Attending Clinician Payers Payer Name Policy Type Policy Number Effective Date Expiration Date S ource Problems Condition Condition Condition Status Onset Resolution [...] Hospita reaction 00 l s to drug Carbamaz Propensi Active Rash 2017-07 Univer s epine ty to 08-04 ity of adverse 00:00: [place] reaction 00 [facility] s Branch Family History Family Member Diagnosis Comments Start Date Stop Date Source Natural brother [facility] Natural father Heart disease [facility] Natural mother Cancer [facility] Natural sister [facility] Social History Social Habit Start Date Stop Date Quantity Comments Source History SDOH [facility] History of tobacco Cigarette Smoker [facility] Alcohol intake [facility] Cigarettes smoked 2019-01-20 2019-01-20 [facility] ity of current (pack per 00:00:00 00:00:00 ) - Reported Branch Cigarette 2018-07-13 2018-07-13 [facility] pack-years 00:00:00 00:00:00 Hospital Tobacco use and 2018-07-13 2018-07-13 Former user [facility] exposure 00:00:00 00:00:00 Hospital History SDOH 2018-07-10 2018-07-10 1 [facility] Alcohol Frequency 00:00:00 00:00:00 Hospita l Alcohol Comment 2018-07-10 2018-07-10 very rarely [facility] 00:00:00 00:00:00 Hospital Smoking Status Start Date Stop Date Source Current every day smoker 2019-01-20 00:00:00 [facility] Medications Ordered Filled Start Stop Current Ordering Indication Dosage Frequency Signature Comments Components Source Medication Medication Date Date Medication? Clinician (SIG) Name Name HYDROcodone Yes 1{tbl} Take 1 Un lamar -acetaminop 7-16 tablet by ity of hen 7.5-325 15:48[place] [facility] Branch levothyroxi Yes 125ug Take 125 U nivers ne 125 mcg 7-16 mcg by ity of tablet 15:48: mouth. [address] terbinafine Yes 250mg Take 250 U nivers HCl 250 mg 7-16 mg by ity of tablet 15:48: mouth. [address] pregabalin Yes 50mg Take 50 mg U nivers (LYRICA) 50 7-16 by mouth. ity of mg capsule 15:48: [address] carvedilol Yes Univers 12.5 mg 7-02 ity of tablet 00:00: [address] SERTraline Yes Univers 50 mg 7-01 ity of tablet 00:00: [place] [id number] [facility] ALPRAZolam Yes TK 1 T PO Un lamar 1 mg tablet 6-21 BID ity of 00:00: [address] carvedilol Yes 12.5mg Q.5D Take 12.5 [facility] (COREG) 1-[address] 12.5 MG 18:02: mouth 2 Hospita tablet 22 (two) l times a day. HYDROcodone 2019-0 Yes 1{tbl} Q8H Take 1 Me thodi -acetaminop 1-[address] hen (NORCO) 18:02: mouth Hospi ta 7.5-325 mg 22 every 8 l per tablet (eight) hours as needed for moderate pain. ranitidine 2018-0 Yes 150mg Q.5D Take 150 Me [facility] (ZANTAC) 1-[address] 150 MG 18:02: mouth 2 Hospita tablet 22 (two) l times a day. pregabalin 2018-0 Yes 50mg Q.5D Take 50 mg M ethodi (LYRICA) 50 1-[address] MG capsule 18:02: (two) Hospit a 22 times a l day. levothyroxi 2018-0 Yes 125ug QD Take 125 M ethodi ne 1-[address] (SYNTHROID, 18:02: mouth Hospi ta LEVOXYL) 22 every l 125 mcg morning. tablet temazepam 2018- Yes 30mg QD Take 30 mg Me thodi (RESTORIL) 1-[address] 30 mg 18:02: nightly as Hospit a capsule 22 needed for l sleep. dextroamphe 2018-0 Yes 30mg Q.5D Take 30 mg [facility] tamine-amph 1-[address] etamine 18:02: (two) Hospita (ADDERALL) 22 times a l 30 mg day. tablet terbinafine Yes 250mg QD Take 250 M ethodi HCl 1-[address] (LamiSIL) 18:02: mouth Hospita 250 mg 22 daily. l tablet ibuprofen 2011- Yes [id number] 600mg Take 1 Tab Univers (MOTRIN) 2-07 by mouth ity of 600 mg 00:00: every 6 [place] tablet 00 (six) Medical hours as Branch needed for Pain. Procedures This patient has no known procedures. Plan of Care Planned Activity Planned Date Details Comments Source Future Scheduled Test COVID-19 VACCINE (1) [facility] [code = COVID-19 VACCINE (1)] Future Scheduled Test Hepatitis C screening [facility] (procedure) [code = 823933537] Future Scheduled Test Screening for malignant [facility] neoplasm of cervix (procedure) [code = 651152885] Future Scheduled Test BREAST CANCER SCREENING [facility] [code = BREAST CANCER SCREENING] Future Scheduled Test COLONOSCOPY SCREENING [facility] [code = COLONOSCOPY SCREENING] Future Scheduled Test SHINGLES VACCINES (#1) [facility] [code = SHINGLES VACCINES (#1)] Future Scheduled Test INFLUENZA VACCINE [code [facility] = INFLUENZA VACCINE] Encounters Start End Encounter Admission Attending Care Care Encounter Source Date/Time Date/Time Type Type Clinicians Facility Department ID 2019-02-01 2019-02-01 Telephone [place], [facility] [id number] 00:00:00 00:00:00 Otto Nuno [id number] [place] [id number] Professio [phone] nal 220 Building 2019-02-01 2019-02-01 Telephone [place], [facility] [id number] [facility] 00:00:00 00:00:00 Otto Nuno [id number] i ty of [place] [id number] Loni s Professio [phone] Hi dical nal 220 Branch Building Results This patient has no known results.
--- NOTE | 2021-07-19 21:40 | RAD REPORT ---
EXAM DESCRIPTION: CT - Head C Spine Cap Dagoberto Garrido - 07/19/2021 9:27 pm CLINICAL HISTORY: Trauma, head and neck injury. Chest, abdomen and pelvis pain. PAIN COMPARISON: <Comparisons> TECHNIQUE: CT head without contrast. CT cervical spine without contrast with coronal and sagittal reformatted images. CT chest, abdomen and pelvis with coronal and sagittal reformatted images of the spine. All CT scans are performed using dose optimization technique as appropriate and may include automated exposure control or mA/KV adjustment according to patient size. FINDINGS: CT HEAD WITHOUT CONTRAST: No intracranial hemorrhage, hydrocephalus or extra-axial fluid collection. No acute large vascular te rritory infarct. The paranasal sinuses and mastoids are clear. The calvarium is intact. CT CERVICAL SPINE WITHOUT CONTRAST: No fracture or subluxation. The prevertebral soft tissues are normal in thickness.Mild cervical spondylosis including neural fora stone narrowing at the C5-6 and C6-[address] CHEST, ABDOMEN, PELVIS: Thorax: Chest Wall: No abnormal mass Lungs: No acute abnormality. Pleura: No effusions or pneumothorax. Samra/Mediastinum: No lymphadenopathy. Aorta/Pulmonary Arteries: Unremarkable Heart: Normal size. Abdomen/Pelvis: Liver: No acute abnormality or suspicious lesions. Hepatic steatosis. Biliary: Cholecystectomy. Stomach: No significant focal abnormality. Duodenum: No significant focal abnormality. Pancreas: No significant abnormality. Spleen: No significant abnormality. Adrenal: No suspicious lesions. Kidney/ureter: No hydronephrosis. No renal calculi. Retroperitoneum: No retroperitoneal adenopathy. Vascular: No aneurysm. Atherosclerosis. Bowel: No significant focal abnormality. Appendectomy. Peritoneum: No ascites or free air. Bladder: Grossly unremarkable. Reproductive: No adnexal masses. Bones: No acute fracture. Other: n/a IMPRESSION: Negative for acute traumatic findings.
--- NOTE | 2021-07-19 21:47 | RAD REPORT ---
EXAM DESCRIPTION: RAD - Ankle Right 3 View - 07/19/2021 9:37 pm CLINICAL HISTORY: PAIN COMPARISON: No comparisonsNo comparisons FINDINGS/IMPRESSION: No acute fracture. No malalignment. Soft tissue swelling along the lateral aspe ct of the ankle. Lucency in the medial aspect of the talar dome could represent an osteochondral defe ct which can be further evaluated with MRI if clinically indicated. Calcaneal spurring.
[2021-07-19 22:46] LABS: Hematocrit 38.8 % (36.0-45.0); Lymphocytes % 31.8 % (15.3-44.8); MPV 8.3 fL (7.6-11.3); RBC Red Blood Cell Count 4.19 M/uL (3.86-4.86)
[2021-07-19 23:06] LABS: Albumin 3.6 g/dL (3.4-5.0); Bilirubin Total 0.3 mg/dL (0.2-1.0); Potassium 4.1 mmol/L (3.5-5.1); Protein, Total 6.6 g/dL (6.4-8.2)
[2021-07-19] MEDS ORDERED: MEPERIDINE HCL 50 MG/ML ONE (23:39)
[2021-07-19] MEDS ORDERED: PROMETHAZINE INJ 25 MG/ML AMP ONE (23:39)
[2021-07-19] MEDS ORDERED: NA CHLORIDE 0.9% 1,000 ML ONE (23:40)
--- NOTE | 2021-07-19 23:43 | ER ---
Nurse's Notes [facility] Name: Ronnell Rubalcava Age: 61 yrs Sex: Female : 1960 Arrival Date: 07/19/2021 Time: 20:28 Bed 16 Private MD: Diagnosis: Fall on same level, unspecified;Strain of muscle and tendon of back wall of thorax;Strain of muscle and tendon of thorax;Contusion of back wall of thorax;Sprain of ankle Presentation: 07/19 20:56 Chief complaint: Patient states: fell off the curb at [facility]; right side hurts from ld1 hitting curb. Coronavirus screen: Vaccine status: Patient reports receiving the 2nd dose of the covid vaccine. Client denies travel out of the [place] in the last 14 days. Ebola Screen: Patient negative for fever greater than or equal to 101.5 degrees Fahrenheit, and additional compatible Ebola Virus Disease symptoms Patient denies exposure to infectious person. Patient denies travel to an Ebola-affected area in the 21 days before illness onset. Initial Sepsis Screen: Does the patient meet any 2 criteria? No. Patient's initial sepsis screen is negative. Does the patient have a suspected source of infection? No. Patient's initial sepsis screen is negative. Risk Assessment: Do you want to hurt yourself or someone else? Patient reports no desire to harm self or others. Onset of symptoms was July 19, 2021. 20:56 Method Of Arrival: Ambulatory ld1 20:56 Acuity: BRYANT 4 ld1 Triage Assessment: 20:59 General: Appears uncomfortable, obese, well groomed, well developed, well nourished, ld1 Behavior is calm, cooperative, appropriate for age, anxious. Pain: Complains of pain in back and right leg. Historical: - Allergies: 20:59 Tegretol; ld1 20:59 morphine; ld1 - PMHx: 20:59 graves disease; Back pain; Fibromyalgia; Hypertension; hyperthyroidism; Hypothyroidism; ld1 - Immunization history:: Adult Immunizations up to date. - Social history:: Smoking status: Patient reports the use of cigarette tobacco products, smokes one-half pack cigarettes per day. Screenin:00 Abuse screen: Denies threats or abuse. Nutritional screening: No deficits noted. sv1 Tuberculosis screening: No symptoms or risk factors identified. Fall Risk None identified. Assessment: 07/20 00:17 Reassessment: Cleared for discharge to home by the provider. . sv1 Vital Signs: 07/19 20:56 BP 139 / 87; Pulse 89; Resp 16; Temp 97.9; Pulse Ox 98% ; Weight 81.65 kg; Height 5 ft. ld1 2 in. (157.48 cm); Pain 10/10; 22:00 BP 143 / 82; Pulse 70; Resp 18; Temp 97.9; Pulse Ox 97% 0 lpm ; Pain 10/10; sv1 07/20 00:13 BP 149 / 70; Pulse 75; Resp 17; Pulse Ox 99% 0 lpm ; Pain 2/10; sv1 07/19 20:56 Body Mass Index 32.92 (81.65 kg, 157.48 cm) ld1 ED Course: 07/19 20:28 Patient arrived in ED. ja2 20:59 Triage completed. ld1 20:59 Arm band placed on right wrist. ld1 21:06 Jose Ramon Kent MD is Attending Physician. [facility] 21:28 CT Traumagram (Head C Spine CAP W Con) In Process Unspecified. EDMS 21:37 XRAY Ankle RIGHT 3 view In Process Unspecified. EDMS 22:00 Patient has correct armband on for positive identification. Bed in low position. Call sv1 light in reach. Side rails up X2. Adult w/ patient. 22:00 No provider procedures requiring assistance completed. IV discontinued. sv1 22:08 Gregor Cisse, JANICE is Primary Nurse. sv1 23:44 Vikram Rico MD is Referral Physician. [facility] 07/20 00:27 INCENTIVE SPIROMETRY Sent. sv1 Administered Medications: 07/19 23:44 Drug: Phenergan (promethazine) 25 mg Route: IM; Site: affected area; ld1 07/20 00:12 Follow up: Response: No adverse reaction; Nausea is decreased sv1 07/19 23:45 Drug: NS 0.9% 1000 ml Route: IV; Rate: 1 bolus; Site: left antecubital; ld1 07/20 00:11 Follow up: Response: No adverse reaction; IV Status: Completed infusion sv1 07/19 23:45 Drug: Demerol (meperidine) 50 mg Route: IM; Site: affected area; ld1 07/20 00:11 Follow up: Response: Pain is decreased sv1 00:10 Drug: Ketorolac 30 mg Route: IVP; Site: left antecubital; sv1 00:12 Follow up: Response: No adverse reaction sv1 Outcome: 07/19 22:00 Discharged to home sv1 Condition: stable Discharge instructions given to patient, family. 23:42 Discharge ordered by MD. sher 07/20 00:43 Patient left the ED. sv1 Signatures: Dispatcher [employer] Jose Ramon Dotson MD MD cha Dibbern, Lauren, RN RN ld1 Shalonda Castellon Steven, RN RN sv1 Corrections: (The following items were deleted from the chart) 07/19 21:11 21:07 To radiology for C Spine Wo Con+CT.RAD.JEANETTE. nikky FERRER
--- NOTE | 2021-07-19 23:43 | EDPHYS ---
Physician Documentation [facility] Name: Ronnell Rubalcava Age: 61 yrs Sex: Female : 1960 Arrival Date: 07/19/2021 Time: 20:28 Bed 16 Private MD: ED Physician Jose Ramon Kent HPI: 07/19 23:36 This 61 yrs old Female presents to ER via Ambulatory with complaints of Fall nikky Injury. 23:36 Details of fall: The patient fell from an upright position, while walking. Onset: The nikky symptoms/episode began/occurred just prior to arrival. Associated injuries: The patient sustained injury to the head, neck injury, upper back injury, pain, injury to the chest. Severity of symptoms: At their worst the symptoms were moderate, in the emergency department the symptoms are unchanged. The patient has not experienced similar symptoms in the past. Historical: - Allergies: 20:59 Tegretol; ld1 20:59 morphine; ld1 - PMHx: 20:59 graves disease; Back pain; Fibromyalgia; Hypertension; hyperthyroidism; Hypothyroidism; ld1 - Immunization history:: Adult Immunizations up to date. - Social history:: Smoking status: Patient reports the use of cigarette tobacco products, smokes one-half pack cigarettes per day. ROS: 23:38 Constitutional: Negative for fever, chills, and weight loss, Eyes: Negative for injury, nikky pain, redness, and discharge, ENT: Negative for injury, pain, and discharge, Neck: Negative for injury, pain, and swelling, Cardiovascular: Negative for chest pain, palpitations, and edema, Respiratory: Negative for shortness of breath, cough, wheezing, and pleuritic chest pain, Abdomen/GI: Negative for abdominal pain, nausea, vomiting, diarrhea, and constipation, : Negative for injury, bleeding, discharge, and swelling, MS/Extremity: Negative for injury and deformity, Skin: Negative for injury, rash, and discoloration, Neuro: Negative for headache, weakness, numbness, tingling, and seizure. 23:38 Back: Positive for decreased range of motion, pain at rest, pain with movement, of the right scapular area, right subscapular area and right mid back. Exam: 23:38 Constitutional: This is a well developed, well nourished patient who is awake, alert, nikky and in no acute distress. Head/Face: Normocephalic, atraumatic. Eyes: Pupils equal round and reactive to light, extra-ocular motions intact. Lids and lashes normal. Conjunctiva and sclera are non-icteric and not injected. Cornea within normal limits. Periorbital areas with no swelling, redness, or edema. ENT: Nares patent. No nasal discharge, no septal abnormalities noted. Tympanic membranes are normal and external auditory canals are clear. Oropharynx with no redness, swelling, or masses, exudates, or evidence of obstruction, uvula midline. Mucous membranes moist. Neck: Trachea midline, no thyromegaly or masses palpated, and no cervical lymphadenopathy. Supple, full range of motion without nuchal rigidity, or vertebral point tenderness. No Meningismus. Cardiovascular: Regular rate and rhythm with a normal S1 and S2. No gallops, murmurs, or rubs. Normal PMI, no JVD. No pulse deficits. Respiratory: Lungs have equal breath sounds bilaterally, clear to auscultation and percussion. No rales, rhonchi or wheezes noted. No increased work of breathing, no retractions or nasal flaring. Abdomen/GI: Soft, non-tender, with normal bowel sounds. No distension or tympany. No guarding or rebound. No evidence of tenderness throughout. Back: No spinal tenderness. No costovertebral tenderness. Full range of motion. Female : Normal external genitalia. Skin: Warm, dry with normal turgor. Normal color with no rashes, no lesions, and no evidence of cellulitis. MS/ Extremity: Pulses equal, no cyanosis. Neurovascular intact. Full, normal range of motion. Neuro: Awake and alert, GCS 15, oriented to person, place, time, and situation. Cranial nerves II-XII grossly intact. Motor strength 5/5 in all extremities. Sensory grossly intact. Cerebellar exam normal. Normal gait. Psych: Awake, alert, with orientation to person, place and time. Behavior, mood, and affect are within normal limits. 23:38 Chest/axilla: Inspection: normal, Palpation: tenderness, that is mild, that is moderate, of the right lateral posterior chest. 23:38 Musculoskeletal/extremity: Circulation is intact in all extremities. Sensation intact. Compartment Syndrome exam of affected extremity: is normal. Joints: the right ankle displays pain at rest, painful range of motion, swelling, DVT Exam: negative Homans' sign noted on exam, no appreciated bluish discoloration, no erythema, no increased warmth, pain, swelling, tenderness. Vital Signs: 20:56 BP 139 / 87; Pulse 89; Resp 16; Temp 97.9; Pulse Ox 98% ; Weight 81.65 kg; Height 5 ft. ld1 2 in. (157.48 cm); Pain 10/10; 22:00 BP 143 / 82; Pulse 70; Resp 18; Temp 97.9; Pulse Ox 97% 0 lpm ; Pain 10/10; sv1 07/20 00:13 BP 149 / 70; Pulse 75; Resp 17; Pulse Ox 99% 0 lpm ; Pain 2/10; sv1 07/19 20:56 Body Mass Index 32.92 (81.65 kg, 157.48 cm) ld1 MDM: 07/19 21:37 Patient medically screened. nikky 23:40 Differential diagnosis: fracture, sprain, chronic back pain, Fatigue Fracture. nikky Differential diagnosis: closed head injury, contusion, fracture, sprain, strain. Data reviewed: vital signs, nurses notes, lab test result(s), radiologic studies, CT scan, plain films. 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 Test interpretation: by ED physician or midlevel provider: plain radiologic studies. Counseling: I had a detailed discussion with the patient and/or guardian regarding: the historical points, exam findings, and any diagnostic results supporting the discharge/admit diagnosis, lab results, radiology results, the need for outpatient follow up, for definitive care, a family practitioner. 07/19 21:08 Order name: CBC with Diff; Complete Time: 23:33 [facility] 07/19 21:08 Order name: Comprehensive Metabolic Panel; Complete Time: 23:33 [facility] 07/19 21:01 Order name: XRAY Ankle RIGHT 3 view; Complete Time: 22:42 ld1 07/19 21:08 Order name: CT Traumagram (Head C Spine CAP W Con); Complete Time: 22:42 [facility] 07/20 00:16 Order name: INCENTIVE SPIROMETRY [facility] 07/19 21:08 Order name: Urine Dipstick-Ancillary (obtain specimen) [facility] 07/19 23:34 Order name: Walking boot; Complete Time: 00:11 nikky 07/19 23:36 Order name: Ice pack nikky Administered Medications: 23:44 Drug: Phenergan (promethazine) 25 mg Route: IM; Site: affected area; ld1 07/20 00:12 Follow up: Response: No adverse reaction; Nausea is decreased sv1 07/19 23:45 Drug: NS 0.9% 1000 ml Route: IV; Rate: 1 bolus; Site: left antecubital; ld1 07/20 00:11 Follow up: Response: No adverse reaction; IV Status: Completed infusion sv1 07/19 23:45 Drug: Demerol (meperidine) 50 mg Route: IM; Site: affected area; ld1 07/20 00:11 Follow up: Response: Pain is decreased sv1 00:10 Drug: Ketorolac 30 mg Route: IVP; Site: left antecubital; sv1 00:12 Follow up: Response: No adverse reaction sv1 Disposition Summary: 07/19/21 23:42 Discharge Ordered Location: Home nikky Problem: new nikky Symptoms: have improved nikky Condition: Stable nikky Diagnosis - Fall on same level, unspecified nikky - Strain of muscle and tendon of back wall of thorax nikky - Strain of muscle and tendon of thorax nikky - Contusion of back wall of thorax nikky - Sprain of ankle nikky Followup: nikky - With: Private Physician - When: 2 - 3 days - Reason: Recheck today's complaints, Continuance of care, Re-evaluation by your physician Followup: nikky - With: Vikram Rico MD - When: 2 - 3 days - Reason: Recheck today's complaints, Continuance of care, Re-evaluation by your physician Discharge Instructions: - Discharge Summary Sheet nikky - Ankle Sprain nikky - Acute Back Pain, Adult nikky - Acute Back Pain, Pediatric nikky - Contusion nikky - Contusion, [id number]-[id number] nikky Forms: - Medication Reconciliation Form nikky - Thank You Letter nikky - Antibiotic Education nikky - Prescription Opioid Use nikyk Prescriptions: - Diclofenac Sodium 75 mg Oral tablet,delayed release (DR/EC) - take 1 tablet by ORAL route 2 times per day; 20 tablet; Refills: 0, Product nikky Selection Permitted - Cyclobenzaprine 5 mg Oral Tablet - take 1 tablet by ORAL route 3 times per day As needed; 15 tablet; Refills: 0, nikky Product Selection Permitted Signatures: Dispatcher [employer] EDMS Jose Ramon Kent MD MD cha Dibbern, Lauren, RN RN ld1 Gregor Cisse, RN RN sv1 Corrections: (The following items were deleted from the chart) 07/19 21:11 21:01 Keanu Garrido+CT.RAD.BRZ ordered. EDMS EDMS
[2021-07-20] MEDS ORDERED: KETOROLAC 30 MG/ML INJ ONE (00:03)
[2021-07-20 00:49] VITALS: TEMP 97.9
[2021-07-20 00:52] VITALS: BP 149/70; O2SAT 99
== END 2021-07-20 00:43 | disposition home or self-care (01) ==
LOC: ER 20:24
DX: S29.012A Strain of muscle and tendon of back wall of thorax, initial encounter (principal); S93.402A Sprain of unspecified ligament of left ankle, initial encounter; W18.30XA Fall on same level, unspecified, initial encounter; I10 Essential (primary) hypertension; Z88.5 Allergy status to narcotic agent; Z88.8 Allergy status to other drugs, medicaments and biological substances
CPT/HCPCS: 85025; 36415; 80053; 70450; 72125; 71260; 74177; 73610; 96372; 96374; 99283; Q9967; J2550; J2175; J7030

== ENCOUNTER 2022-03-11 16:51 | Inpatient (IN) | payer OTHER ==
--- OUTSIDE RECORDS SUMMARY | 2022-03-11 16:54 | XMS REPORT | Continuity of Care Document ---
:1960 Author Organization [facility] t Address [address] [place] [address] Care Team Providers Name Role Phone Yaquelin Gama MD, William Primary Care Physician [phone] Raysa Bah MD Attending Clinician RAYSA BAH Attending Clinician Unavailable Otto Solares MD Attending Clinician Payers Payer Name Policy Type Policy Number Effective Date Expiration Date S ource Problems Condition Condition Condition Status Onset Resolution Last Treating Co mments Source Name Details Category Date Date Treatment Clinician Date Narrowing Narrowing Disease Active Met hodi of lumbar of lumbar 07-10 st spine spine 00:00: Hospita 00 l No known No known Disease Unive rs active active ity of problems problems [facility] Allergies, Adverse Reactions, Alerts Allergy Allergy Status Severity Reaction(s) Onset Inactive Treating Comm ents Source Name Type Date Date Clinician Chlorhex Propensi Active Itching Itching Meth alin idine ty to 07-[address] Gluconat adverse 00:00: areas she Hosp opal e reaction 00 used with l s to the [facility] drug wipes this morning. Carbamaz Propensi Active Rash 2017-07 Univer s epine ty to 08-04 ity of adverse 00:00: [place] reaction 00 Medical s Branch CARBAMAZ DRUG Active Rash 2017-07 Univers EPINE INGREDI 08-04 ity of 00:00: [place] [id number] Medical Branch Carbamaz Propensi Active 2017-07 Method i epine ty to 08-04 st adverse 00:00: Hospita reaction 00 l s to drug Family History Family Member Diagnosis Comments Start Date Stop Date Source Natural brother [facility] father [facility] Natural mother [facility] Social History Social Habit Start Date Stop Date Quantity Comments Source History SDSC [facility] St[facility] Dr[facility] Hospit al History [facility] History of tobacco Cigarette Smoker University of use [facility] Exposure to 2022-01-08 2022-01-18 Not sure [facility] SARS-CoV-2 (event) 00:00:00 13:18:00 [facility] Tobacco use and 2022-01-18 2022-01-18 Smokeless Universit y of exposure 00:00:00 00:00:00 tobacco non-user [facility] Alcohol intake 2018-07-13 2018-07-13 Current drinker [facility] 00:00:00 00:00:00 of alcohol Hospital (finding) Cigarettes smoked 2018-07-10 2018-07-10 [facility] current (pack per 00:00:00 00:00:00 Hospita l day) - Reported Cigarette 2018-07-10 2018-07-10 [facility] pack-years 00:00:00 00:00:00 Hospital History SDOH 2018-07-10 2018-07-10 1 [facility] Alcohol Frequency 00:00:00 00:00:00 Hospita l Alcohol Comment 2018-07-10 2018-07-10 very rarely [facility] 00:00:00 00:[facility]:00 Hospital Sex Ass[birth year] At [birth year] [facility] 00:00:00 00:00:00 Hospital Smoking Status Start Date Stop Date Source Smokes tobacco daily 2022-01-18 [facility]ations Ordered Filled Start Stop Current Ordering Indication Dosage Frequency Signature Comments Components Source Medication Medication Date Date Medication? Clinician (SIG) Name Name HYDROcodone Yes 1{tbl} Take 1 Un lamar -acetaminop 7-16 tablet by ity of [place] 7.5-325 10[place]48[place] [facility] tablet Branch levothyroxi Yes 125ug Take 125 U nivers ne 125 mcg 7-16 mcg by ity of tablet 10:48: mouth. [address] terbinafine Yes 250mg Take 250 U nivers HCl 250 mg 7-16 mg by ity of tablet 10:48: mouth. [address] pregabalin Yes 50mg Take 50 mg U nivers (LYRICA) 50 7-16 by mouth. ity of mg capsule 10:48: [address] HYDROcodone Yes 1{tbl} Take 1 Un lamar -acetaminop 7-16 tablet by ity of [place] 7.5-325 [place]:48[place] [facility] Medical tablet Branch levothyroxi Yes 125ug Take 125 U nivers ne 125 mcg 7-16 mcg by ity of tablet 10:48: mouth. [address] terbinafine Yes 250mg Take 250 U nivers HCl 250 mg 7-16 mg by ity of tablet 10:48: mouth. [address] pregabalin Yes 50mg Take 50 mg U nivers (LYRICA) 50 7-16 by mouth. ity of mg capsule 10:48: [address] carvedilol Yes Univers 12.5 mg 7-02 ity of tablet 00:00: [address] carvedilol Yes Univers 12.5 mg 7-02 ity of tablet 00:00: [address] SERTraline Yes Univers 50 mg 7-01 ity of tablet 00:00: [address] SERTraline Yes Univers 50 mg 7-01 ity of tablet 00:00: [address] ALPRAZolam Yes TK 1 T PO Un lamar 1 mg tablet 6-21 BID ity of 00:00: [address] ALPRAZolam Yes TK 1 T PO Un lamar 1 mg tablet 6-21 BID ity of 00:00: [address] ranitidine Yes 150mg Q.5D Take 150 Me thodi (ZANTAC) 1-[address] 150 MG 18:02: mouth 2 Hospita tablet 22 (two) l times a day. pregabalin Yes 50mg Q.5D Take 50 mg M [...] Hospita 250 mg 22 daily. l tablet carvedilol 2019-0 Yes 12.5mg Q.5D Take 12.5 Methodi (COREG) 1-[address] 12.5 MG 18:02: mouth 2 Hospita tablet 22 (two) l times a day. HYDROcodone 2019-0 Yes 1{tbl} Q8H Take 1 Me thodi -acetaminop 1-[address] hen (NORCO) 18:02: mouth Hospi ta 7.5-325 mg 22 every 8 l per tablet (eight) hours as needed for moderate pain. carvedilol 2019-0 Yes 12.5mg Q.5D Take 12.5 Methodi (COREG) 1-[address] 12.5 MG 12:02: mouth 2 Hospita tablet 22 (two) l times a day. HYDROcodone 2019-0 Yes 1{tbl} Q8H Take 1 Me thodi -acetaminop 1-[address] hen (NORCO) 12:02: mouth Hospi ta 7.5-325 mg 22 every 8 l per tablet (eight) hours as needed for moderate pain. ranitidine 2019-0 Yes 150mg Q.5D Take 150 Me thodi (ZANTAC) 1-[address] 150 MG 12:02: mouth 2 Hospita tablet 22 (two) l times a day. pregabalin 2019-0 Yes 50mg Q.5D Take 50 mg M ethodi (LYRICA) 50 1-[address] MG capsule 12:02: (two) Hospit a 22 times a l day. levothyroxi 2018- Yes 125ug QD Take 125 M ethodi ne 1-[address] (SYNTHROID, 12:02: mouth Hospi ta LEVOXYL) 22 every l 125 mcg morning. tablet temazepam Yes 30mg QD Take 30 mg Me thodi (RESTORIL) 1-[address] 30 mg 12:02: nightly as Hospit a capsule 22 needed for l sleep. dextroamphe Yes 30mg Q.5D Take 30 mg Methodi tamine-amph 1-[address] etamine 12:02: (two) Hospita (ADDERALL) 22 times a l 30 mg day. tablet terbinafine Yes 250mg QD Take 250 M ethodi HCl 1-[address] (LamiSIL) 12:02: mouth Hospita 250 mg 22 daily. l tablet ibuprofen Yes [id number] 600mg Take 1 Tab Univers (MOTRIN) 2-07 by mouth ity of 600 mg 00:00: every 6 [place] tablet 00 (six) Medical hours as Branch needed for Pain. ibuprofen Yes [id number] 600mg Take 1 Tab Univers (MOTRIN) 2-07 by mouth ity of 600 mg 00:00: every 6 [place] tablet 00 (six) Medical hours as Branch needed for Pain. Vital Signs Vital Name Observation Time Observation Value Comments Source Body weight 2022-01-18 19:15:00 81.647 kg [facility] BMI 2022-01-18 19:15:00 32.92 kg/m2 [facility] Procedures This patient has no known procedures. Plan of Care Planned Activity Planned Date Details Comments Source Future Scheduled 2022-03-07 INFLUENZA VACCINE Method [facility] Test 02:49:44 [code = INFLUENZA VACCINE] Future Scheduled 2022-03-07 HEPATITIS B VACCINES Met [facility] Test 02:49:44 (1 of 3 - 3-dose series) [code = HEPATITIS B VACCINES (1 of 3 - 3-dose series)] Future Scheduled 2022-03-07 COVID-19 VACCINE (#1) [facility] Test 02:49:44 [code = COVID-19 VACCINE (#1)] Future Scheduled 2022-03-07 Screening for [facility] Test 02:49:44 malignant neoplasm of cervix (procedure) [code = 312185191] Future Scheduled 2022-03-07 BREAST CANCER [facility] Test 02:49:44 SCREENING [code = BREAST CANCER SCREENING] Future Scheduled 2022-03-07 COLONOSCOPY SCREENING Me [facility] Test 02:49:44 [code = COLONOSCOPY SCREENING] Future Scheduled 2022-03-07 SHINGLES VACCINES (1 [facility] Test 02:49:44 of 2) [code = SHINGLES VACCINES (1 of 2)] Future Scheduled COVID-19 [facility] (1[facility] [code = COVID-19 VACCINE (1)] Future Scheduled Hepatitis C screening Me [facility] Test (procedure) [code = 738569992] Future Scheduled Screening for [facility] Test malignant neoplasm of cervix (procedure) [code = 959666749] Future Scheduled BREAST CANCER [facility] Test SCREENING [code = BREAST CANCER SCREENING] Future Scheduled COLONOSCOPY SCREENING [facility] Test [code = COLONOSCOPY SCREENING] Future Scheduled SHINGLES VACCINES [facility] Test (#1) [code = SHINGLES VACCINES (#1)] Future Scheduled INFLUENZA VACCINE [facility] Test [code = INFLUENZA VACCINE] Encounters Start End Encounter Admission Attending Care Care Encounter Source Date/Time Date/Time Type Type Clinicians Facility Department ID 2022-02-21 2022-02-21 Telephone Raysa Bah [facility] [id number] Univers 00:00:00 00:00:00 R Y [id number] it y of NATIONAL [id number] [facility] BANK [phone] [facility] [address]G. [address] Branch 2022-01-18 2022-01-18 Office Raysa Bah [facility] [id number] Univers 13:45:00 15:54:35 Visit R Y [id number] it y of NATIONAL [id number] [facility] BANK [phone] [facility] [address]. [address] Branch 2022-01-18 2022-01-18 Outpatient R RAYSA BAH [facility] [id number] Univers 13:45:00 15:54:35 ity [facility] 2019-02-01 2019-02-01 Telephone Beck [facility] [id number] 00:00:00 00:00:00 Otto Nuno [id number] Radha [id number] Professsusan [id number] nal [address] Building Results This patient has no known results.
[2022-03-11 18:21] LABS: Absolute Lymphocytes (CBC) 1.7 K/uL (0.7-4.9); Hematocrit 38.3 % (36.0-45.0); Lymphocytes % 6.1 % (15.3-44.8); MCV 89.5 fL (80-100); MPV 8.1 fL (7.6-11.3); RBC Red Blood Cell Count 4.28 M/uL (3.86-4.86)
--- NOTE | 2022-03-11 18:24 | RAD REPORT ---
EXAM DESCRIPTION: RAD - Chest Single View - 03/11/2022 5:58 pm CLINICAL HISTORY: MALAISE COMPARISON: Chest Pa And Lat (2 Views) dated 02/02/2021; Chest Single View dated 06/19/2020; Chest Si ngle View dated 01/27/2016; CHEST SINGLE VIEW dated 05/14/2015 FINDINGS: Lines: None. Lungs: Patchy airspace disease in the right lung base. Pleural: No significant pleural effusions or pneumothorax. Cardiac: The heart size is within normal limits. Mediastinum: Within normal limits. Bones: No acute fractures. Other: None IMPRESSION: Ill-defined right basilar opacities may reflect pneumonia.
[2022-03-11 18:40] LABS: Albumin 3.1 g/dL (3.4-5.0); Bilirubin Total 0.4 mg/dL (0.2-1.0); Protein, Total 6.5 g/dL (6.4-8.2)
[2022-03-11 18:57] LABS: Platelet Estimate ADEQ
[2022-03-11 18:58] LABS: Blood Morphology Comment NOT SEEN (NOT SEEN)
--- NOTE | 2022-03-11 19:22 | RAD REPORT ---
EXAM DESCRIPTION: CT - Head Brain Wo Cont - 03/11/2022 7:08 pm CLINICAL HISTORY: Pt has been having headaches. Wakes up shaking. COMPARISON: Head Brain Wo Cont dated 02/02/2021; Head Brain Wo Cont dated 02/17/2019 TECHNIQUE: All CT scans are performed using dose optimization technique as appropriate and may inclu de automated exposure control or mA/KV adjustment according to patient size. FINDINGS: No intracranial hemorrhage, hydrocephalus or extra-axial fluid collection.No areas of brai n edema or evidence of midline shift. The paranasal sinuses and mastoids are clear. The calvarium is intact. IMPRESSION: No acute intracranial abnormality.
--- NOTE | 2022-03-11 19:49 | EDPHYS ---
Physician Documentation [facility] Name: Ronnell Rubalcava Age: 62 yrs Sex: Female : 1960 Arrival Date: 03/11/2022 Time: 16:54 Bed 15 Private MD: Josh Jamison E ED Physician Jagdish Spicer HPI: 03/11 18:20 This 62 yrs old Female presents to ER via Ambulatory with complaints of Body jl9 aches, Headache. 18:20 Onset: The symptoms/episode began/occurred 1 week(s) ago. Associated signs and jl9 symptoms: Pertinent positives: headache, Pertinent negatives: chest pain, shortness of breath. Modifying factors: The patient symptoms are alleviated by nothing, the patient symptoms are aggravated by nothing. Historical: - Allergies: 17:13 Morphine; ko1 17:13 Tegretol; ko1 - PMHx: 17:13 Back pain; graves disease; Fibromyalgia; Hypertension; hyperthyroidism; Hypothyroidism; ko1 - Immunization history:: Adult Immunizations unknown. - Social history:: Smoking status: Patient reports the use of cigarette tobacco products, smokes one pack cigarettes per day. ROS: 18:21 Constitutional: Negative for fever, chills, and weight loss, Eyes: Negative for injury, jl9 pain, redness, and discharge, ENT: Negative for injury, pain, and discharge, Neck: Negative for injury, pain, and swelling, Cardiovascular: Negative for chest pain, palpitations, and edema, Respiratory: Negative for shortness of breath, cough, wheezing, and pleuritic chest pain, Abdomen/GI: Negative for abdominal pain, nausea, vomiting, diarrhea, and constipation, Back: Negative for injury and pain, MS/Extremity: Negative for injury and deformity, Skin: Negative for injury, rash, and discoloration. 18:21 Psych: Negative for depression, anxiety, suicide ideation, homicidal ideation, and hallucinations, Allergy/Immunology: Negative for hives, rash, and allergies, Endocrine: Negative for neck swelling, polydipsia, polyuria, polyphagia, and marked weight changes, Hematologic/Lymphatic: Negative for swollen nodes, abnormal bleeding, and unusual bruising. 18:21 Neuro: Positive for headache, weakness. Exam: 18:22 Constitutional: This is a well developed, well nourished patient who is awake, alert, jl9 and in no acute distress. Head/Face: Normocephalic, atraumatic. Eyes: Pupils equal round and reactive to light, extra-ocular motions intact. Lids and lashes normal. Conjunctiva and sclera are non-icteric and not injected. Cornea within normal limits. Periorbital areas with no swelling, redness, or edema. ENT: Mucous membranes moist. Neck: Trachea midline, no thyromegaly or masses palpated, and no cervical lymphadenopathy. Supple, full range of motion without nuchal rigidity, or vertebral point tenderness. No Meningismus. Chest/axilla: Normal chest wall appearance and motion. Nontender with no deformity. No lesions are appreciated. Cardiovascular: Regular rate and rhythm with a normal S1 and S2. No gallops, murmurs, or rubs. Normal PMI, no JVD. No pulse deficits. Respiratory: Lungs have equal breath sounds bilaterally, clear to auscultation and percussion. No rales, rhonchi or wheezes noted. No increased work of breathing, no retractions or nasal flaring. Abdomen/GI: Soft, non-tender, with normal bowel sounds. No distension or tympany. No guarding or rebound. No evidence of tenderness throughout. Back: No spinal tenderness. No costovertebral tenderness. Full range of motion. Skin: Warm, dry with normal turgor. Normal color with no rashes, no lesions, and no evidence of cellulitis. MS/ Extremity: Pulses equal, no cyanosis. Neurovascular intact. Full, normal range of motion. Neuro: Awake and alert, GCS 15, oriented to person, place, time, and situation. Cranial nerves II-XII grossly intact. Motor strength 5/5 in all extremities. Sensory grossly intact. Cerebellar exam normal. Normal gait. Psych: Awake, alert, with orientation to person, place and time. Behavior, mood, and affect are within normal limits. Vital Signs: 17:07 BP 139 / 73; Pulse 101; Resp 24; Temp 97.5; Pulse Ox 96% ; Weight 81.65 kg; Height 5 ko1 ft. 2 in. (157.48 cm); 19:45 BP 127 / 68; Pulse 82; Resp 20; Pulse Ox 95% on R/A; jb4 20:45 BP 119 / 51; Pulse 82; Resp 20; Pulse Ox 97% on R/A; jb4 21:15 BP 110 / 82; Pulse 82; Resp 16; Pulse Ox 97% on R/A; jb4 17:07 Body Mass Index 32.92 (81.65 kg, 157.48 cm) ko1 MDM: 17:11 Patient medically screened. 18:20 Test interpretation: by ED physician or midlevel provider: ECG, NSR 84bpm. jl9 18:22 Data reviewed: vital signs, nurses notes. jl 19:35 Counseling: I had a detailed discussion with the patient and/or guardian regarding: the [facility] historical points, exam findings, and any diagnostic results supporting the discharge/admit diagnosis, lab results, radiology results, the need for further work-up and treatment in the hospital. Other consultation: Discussed case with HOLLIE Pereira and she accepts. Will see patient. . 03/11 17:12 Order name: SARS-COV-2 RT PCR (Document "Date of Onset" if Symptomatic); Complete Time: [facility] 19:04 03/11 17:12 Order name: Flu; Complete Time: 19:04 [facility] 03/11 17:56 Order name: CBC with Diff; Complete Time: 19:04 03/11 17:56 Order name: CMP; Complete Time: 19:04 03/11 17:56 Order name: Troponin High Sensitivity; Complete Time: 19:04 03/11 18:34 Order name: Manual Differential; Complete Time: 19:04 EDCT 03/11 17:12 Order name: XRAY Chest (1 view); Complete Time: 19:04 03/11 18:13 Order name: CT Head Brain wo Cont; Complete Time: 19:25 03/11 19:05 Order name: Lactate; Complete Time: 20:54 03/11 19:05 Order name: Blood Culture Adult (2) 03/11 20:35 Order name: Urine Dipstick-Ancillary; Complete Time: 20:54 EDMS 03/11 17:56 Order name: IV Saline Lock; Complete Time: 18:11 03/11 17:56 Order name: Labs collected and sent; Complete Time: 18:11 03/11 17:56 Order name: Urine Dipstick-Ancillary (obtain specimen); Complete Time: 20:36 03/11 17:56 Order name: EKG; Complete Time: 17:57 jl9 Administered Medications: 19:47 Drug: NS 0.9% 1000 ml Route: IV; Rate: 1000 ml; Site: left antecubital; jb4 20:37 Drug: AZITHromycin 500 mg Route: IVPB; Infused Over: 1 hrs; Site: left antecubital; jb4 20:44 Drug: Rocephin (cefTRIAXone) 1 grams Route: IV; Rate: bolus; Site: left antecubital; jb4 20:44 Drug: Ketorolac 15 mg Route: IVP; Site: left antecubital; jb4 20:58 Not Given (Patient Refused): Ondansetron 4 mg IVP once; over 2 minutes jb4 Disposition Summary: 03/11/22 19:49 Hospitalization Ordered Hospitalization Status: Inpatient Admission jl9 [facility] jl9 Condition: Fair jl9 Problem: new jl9 Symptoms: are unchanged jl9 Bed/Room Type: Standard jl9 Provider: Jose Bell(03/11/22 20:13) jl9 Room Assignment: [facility](03/11/22 20:47) Diagnosis - Other pneumonia, unspecified organism jl9 Forms: - Medication Reconciliation Form jl9 - SBAR form jl9 Signatures: Dispatcher [employer] Sydney Townsend, RN RN Richardson Giron RN RN [email or web address] Florencio Gann jl9 Jackeline Roa RN RN ko1 Corrections: (The following items were deleted from the chart) 20:13 19:49 Yin Guzman jl9 jl9 20:48 19:49 jl9
--- NOTE | 2022-03-11 19:49 | ER ---
Nurse's Notes [facility] Name: Ronnell Rubalcava Age: 62 yrs Sex: Female : 1960 Arrival Date: 03/11/2022 Time: 16:54 Bed 15 Private MD: Josh Jamison E Diagnosis: Other pneumonia, unspecified organism Presentation: 03/11 17:07 Chief complaint: Patient states: Patient has been having headaches, states she just ko1 doesn't feel right. She is concerned about seizures. She says she wakes up shaking. Coronavirus screen: Client denies travel out of the [place] in the last 14 days. At this time, the client does not indicate any symptoms associated with coronavirus-19. Ebola Screen: No symptoms or risks identified at this time. Initial Sepsis Screen: Does the patient meet any 2 criteria? No. Patient's initial sepsis screen is negative. Does the patient have a suspected source of infection? No. Patient's initial sepsis screen is negative. Risk Assessment: Do you want to hurt yourself or someone else? Patient reports no desire to harm self or others. Onset of symptoms was March 11, 2022. 17:07 Method Of Arrival: Ambulatory ko1 17:07 Acuity: BRYANT 3 ko1 Triage Assessment: 17:13 Headache History: Denies prior headaches. General: Appears in no apparent distress. ko1 distressed, Behavior is cooperative, appropriate for age, anxious. Pain: Pain currently is 10 out of 10 on a pain scale. Pain began 2-3 days ago. Also complains of no other associated symptoms. Neuro: No deficits noted. Historical: - Allergies: 17:13 Morphine; ko1 17:13 Tegretol; ko1 - PMHx: 17:13 Back pain; graves disease; Fibromyalgia; Hypertension; hyperthyroidism; Hypothyroidism; ko1 - Immunization history:: Adult Immunizations unknown. - Social history:: Smoking status: Patient reports the use of cigarette tobacco products, smokes one pack cigarettes per day. Screenin:11 Abuse screen: Denies threats or abuse. Nutritional screening: No deficits noted. Fall kr3 Risk IV access (20 points). Total Donald Fall Scale indicates No Risk (0-24 pts). 19:00 Tuberculosis screening: No symptoms or risk factors identified. jb4 Assessment: 19:00 Reassessment: see triage note. jb4 20:00 Reassessment: Patient appears in no apparent distress at this time. Patient and/or jb4 family updated on plan of care and expected duration. Pain level reassessed. Patient is alert, oriented x 3, equal unlabored respirations, skin warm/dry/pink. 21:00 Reassessment: Patient appears in no apparent distress at this time. Patient and/or jb4 family updated on plan of care and expected duration. Pain level reassessed. Patient is alert, oriented x 3, equal unlabored respirations, skin warm/dry/pink. 22:00 Reassessment: Patient appears in no apparent distress at this time. Patient and/or jb4 family updated on plan of care and expected duration. Pain level reassessed. Patient is alert, oriented x 3, equal unlabored respirations, skin warm/dry/pink. Vital Signs: 17:07 BP 139 / 73; Pulse 101; Resp 24; Temp 97.5; Pulse Ox 96% ; Weight 81.65 kg; Height 5 ko1 ft. 2 in. (157.48 cm); 19:45 BP 127 / 68; Pulse 82; Resp 20; Pulse Ox 95% on R/A; jb4 20:45 BP 119 / 51; Pulse 82; Resp 20; Pulse Ox 97% on R/A; jb4 21:15 BP 110 / 82; Pulse 82; Resp 16; Pulse Ox 97% on R/A; jb4 17:07 Body Mass Index 32.92 (81.65 kg, 157.48 cm) ko1 ED Course: 16:54 Patient arrived in ED. mr 16:55 Josh Jamison MD is Private Physician. mr 17:11 [facility] jl9 17:11 Jagdish Spicer MD is Attending Physician. jl9 17:13 Triage completed. ko1 17:13 Arm band placed on right wrist. Patient placed in waiting room, Patient notified of ko1 wait time. 17:26 Flu Sent. ko1 17:27 SARS-COV-2 RT PCR (Document "Date of Onset" if Symptomatic) Sent. ko1 17:56 Gabby Forte, RN is Primary Nurse. kr3 18:01 XRAY Chest (1 view) In Process Unspecified. EDMS 18:05 Inserted saline lock: 20 gauge in left antecubital area, using aseptic technique. kr3 18:12 Bed in low position. Call light in reach. Side rails up X 1. kr3 18:14 EKG done, by ED staff, reviewed by Florencio Gann. ll1 19:10 CT Head Brain wo Cont In Process Unspecified. EDNV 19:22 Primary Nurse role handed off by Gabby Forte RN mw2 19:38 Richardson Guajardo, RN is Primary Nurse. jb4 19:49 Yin Guzman PA is Hospitalizing Provider. jl9 20:13 Hospitalizing Provider role handed off by Yin Guzman PA jl9 20:13 Jose Bell MD is Hospitalizing Provider. jl9 20:36 Urine collected: clean catch specimen, clear. 22:40 No provider procedures requiring assistance completed. Patient admitted, IV remains in jb4 place. Administered Medications: 19:47 Drug: NS 0.9% 1000 ml Route: IV; Rate: 1000 ml; Site: left antecubital; jb4 20:37 Drug: AZITHromycin 500 mg Route: IVPB; Infused Over: 1 hrs; Site: left antecubital; jb4 20:44 Drug: Rocephin (cefTRIAXone) 1 grams Route: IV; Rate: bolus; Site: left antecubital; jb4 20:44 Drug: Ketorolac 15 mg Route: IVP; Site: left antecubital; jb4 20:58 Not Given (Patient Refused): Ondansetron 4 mg IVP once; over 2 minutes jb4 Medication: 18:12 VIS not applicable for this client. kr3 Outcome: 19:49 Decision to Hospitalize by Provider. jl9 22:40 Admitted to Tele accompanied by tech, via wheelchair, room 419, with chart, Report jb4 called to JANICE Hassan 22:40 Condition: stable 22:40 Discharge instructions given to patient, Instructed on the need for admit, Demonstrated understanding of instructions. 22:41 Patient left the ED. jb4 Signatures: Dispatcher [employer] EUSEBIANV Alicia Arredondo mr Richardson Guajardo, RN RN jb4 Bharat Clarke mw2 Sophie Cornejo RN RN black1 Dorita Barajas Florencio Gann jl9 Gabby Forte RN RN kr3 Jackeline Roa RN RN ko1 Corrections: (The following items were deleted from the chart) 03/12 03:58 03/11 22:45 No provider procedures requiring assistance completed. jb4 jb4 03/12 03:58 03/11 22:45 Patient admitted, IV remains in place. jb4 jb4
[2022-03-11] MEDS ORDERED: NA CHLORIDE 0.9% 1,000 ML ONE (19:53)
--- NOTE | 2022-03-11 20:27 | P.HP ---
Certification for Inpatient Patient admitted to: Inpatient With expected LOS: <2 Midnights Practitioner: I am a practitioner with admitting privileges, knowledge of patient current condition, hospital course, and medical plan of care. Services: Services provided to patient in accordance with Admission requirements found in Title 42 Section 412.3 of the Code of Federal Regulations Patient History Date of Service: 03/11/22 Primary Care Provider: Yaquelin Reason for admission: Pneumonia History of Present Illness: Patient is a 62-year-old female with history of hypertension, Graves', and hypertension who presented to the ED with complaints of body aches, "shaking," and headache. She was tachycardic and tachypneic upon arrival. Patient states that she has episodes where she starts to shake and she thought they might be seizures. She denies any fevers. Head CT negative for acute findings. Labs significant for WBC 28.5 and 4 bands. Chest x-ray showed "Ill-defined right basilar opacities may reflect pneumonia." She is saturating appropriately on room air. She was given 1 L of fluid and started on Rocephin and azithromycin in ED. She is admitted for further evaluation and treatment. Allergies carbamazepine [From Tegretol] Allergy (Verified 05/15/15 02:25) Hives/Rash Home medications list reviewed: Yes Home Medications: Escitalopram [Lexapro*] 20 mg PO BEDTIME 05/12/13 Levothyroxine [Synthroid*] 150 mcg PO [id number] 05/12/13 carvediloL [Coreg*] 12.5 mg PO BID 05/12/13 Zolpidem Tartrate [Ambien*] 10 mg PO BEDTIME PRN PRN 05/13/13 Quetiapine Fumarate [Seroquel] 200 mg PO BEDTIME #0 tablet 05/14/13 Codeine/APAP [Tylenol W/Codeine #3 tab] 1 tab PO Q6HP PRN #30 tab 01/29/16 Cyclobenzaprine [Flexeril*] 10 mg PO BIDP PRN #20 tab 01/29/16 Methylprednisolone [Medrol dosepack] 4 mg PO DIRECTED #1 allison 01/29/16 - Past Medical/Surgical History Diabetic: No -: HTN -: Graves -: Fibromyalgia -: Insomnia -: Depression -: Anxiety -: Hep C -: -: Epidurals for back pain -: Cholecystectomy -: Appendectomy - Family History Mother -: Cancer Notes: Breast Father -: Heart disease - Social History Smoking Status: Current every day smoker Alcohol use: No CD- Drugs: No Caffeine use: Yes Place of Residence: Home Review of Systems General: Chills, Weakness, Malaise, Other (Headache) Physical Examination - Physical Exam General: Alert, In no apparent distress HEENT: Atraumatic, PERRLA, EOMI, Sclerae nonicteric Neck: Supple, 2+ carotid pulse no bruit, No LAD, Without JVD or thyroid abnormality Respiratory: Clear to auscultation bilaterally, Normal air movement Cardiovascular: Regular rate/rhythm, Normal S1 S2 Gastrointestinal: Normal bowel sounds, No tenderness Musculoskeletal: No tenderness Integumentary: No rashes Neurological: Normal speech, Normal strength at 5/5 x4 extr, Normal tone, Normal affect - Studies Laboratory Data (last 24 hrs) 03/11/22 18:08: Sodium 136, Potassium 4.0, BUN 13, Creatinine 0.93, Glucose 106, Total Bilirubin 0.4, AST 15, ALT 22, Alkaline Phosphatase 78 03/11/22 18:08: WBC 28.50 H*, Hgb 12.9, Hct 38.3, Plt Count 364 Microbiology Data (last 24 hrs): 03/11/22 17:25 Nasopharnyx Influenza Type A Antigen Screen - Final 03/11/22 17:25 Nasopharnyx Influenza Type B Antigen Screen - Final Assessment and Plan - Problems (Diagnosis) (1) Pneumonia Current Visit: Yes Status: Acute Qualifiers: Pneumonia type: due to unspecified organism Laterality: right Lung location: lower lobe of lung Qualified Code(s): J18.9 - Pneumonia, unspecified organism (2) Hypertension Current Visit: Yes Status: Chronic Qualifiers: Hypertension type: primary hypertension Qualified Code(s): I10 - Essential (primary) hypertension (3) Tobacco abuse Current Visit: Yes Status: Chronic - Plan -Continue azithromycin and Rocephin -Incentive spirometry. Pulmonology consult -Breathing treatments as needed -Patient not requiring supplemental O2 and saturating appropriately. Monitor pulse oximetry -Lactate negative. WBC 28.5. Blood cultures obtained. -Tobacco cessation counseling. -Monitor and replete electrolytes per protocol. -Reconcile and continue home medications. -Lovenox for VTE ppx. -Full code Discharge Plan: Home Plan to discharge in: 48 Hours - Advance Directives Does patient have a Living Will: No Does patient have a Durable POA for Healthcare: No - Code Status/Comfort Care Code Status Assessed: Yes (Full) Critical Care: No Time Spent Managing Pts Care (In Minutes): 50
[2022-03-11 20:35] LABS: Urine Blood Negative (Negative); Urine Glucose Negative (Negative); Urine Protein Negative (Negative)
[2022-03-11] MEDS ORDERED: KETOROLAC 30 MG/ML INJ ONE (20:37)
[2022-03-11] MEDS ORDERED: CEFTRIAXONE 1000 MG/VIAL ONE (20:37)
[2022-03-11] MEDS ORDERED: ONDANSETRON 4 MG/2 ML VIAL ONE (20:38)
[2022-03-11] MEDS ORDERED: AZITHROMYCIN 500 MG INJ IVPB ONE (20:38)
[2022-03-11] MEDS ORDERED: NA CHLORIDE 0.9% 250 ML ONE (20:38)
[2022-03-11] MEDS ORDERED: ACETAMINOPHEN 500 MG TAB PO PRN (22:11)
[2022-03-11] MEDS ORDERED: ALBUTEROL 2.5 MG/3 ML NEB SOL NEB PRN (22:11)
[2022-03-11] MEDS ORDERED: ONDANSETRON 4 MG/2 ML VIAL IV PRN (22:11)
[2022-03-11 23:12] VITALS: BMI 33.0
[2022-03-11] MEDS: HYDROCODONE/APAP 7.5/325 MG TAB PO PRN (23:55)
[2022-03-12 04:52] LABS: Urine Mucus Slight /HPF (None Seen); Urine RBC <5 /HPF (None Seen)
[2022-03-12 04:54] LABS: Urine Color Colorless (Yellow)
[2022-03-12 04:55] LABS: Specific Gravity 1.007 (1.005-1.030); Urine Bilirubin NEGATIVE (Negative); Urine Blood Negative (Negative); Urine Clarity Clear (Clear); Urine Glucose Negative (Negative); Urine Protein Negative (Negative); Urine Urobilinogen Normal (Normal); Urine pH 6.5 (5.0-7.0)
[2022-03-12 06:15] LABS: Absolute Lymphocytes (CBC) 2.2 K/uL (0.7-4.9); Hematocrit 33.6 % (36.0-45.0); Lymphocytes % 13.1 % (15.3-44.8); MCV 88.3 fL (80-100); MPV 8.3 fL (7.6-11.3)
[2022-03-12 07:25] LABS: Magnesium 1.8 mg/dL (1.8-2.4); Phosphorus 3.3 mg/dL (2.5-4.9); Potassium 3.5 mmol/L (3.5-5.1); Thyroid Stimulating Hormone 0.331 uIU/mL (0.360-3.740)
[2022-03-12] MEDS: ENOXAPARIN 40 MG/0.4 ML SQ SCH (08:27)
[2022-03-12] MEDS: HYDROCODONE/APAP 7.5/325 MG TAB PO PRN ×3 (08:27→19:34)
[2022-03-12] MEDS ORDERED: POTASSIUM CL SA 10 MEQ TAB PO ONE (09:00)
--- NOTE | 2022-03-12 12:08 | P.CNS ---
Date of Consult: 03/12/22 Reason for Consult: Pneumonia Primary Care Provider: Jamison Chief Complaint: Pneumonia History of Present Illness: Patient is 62 years of age with a history of hypertension Graves' admitted with sudden onset of shaking chills has had these before admitted with a diagnosis of pneumonia complains of right-sided pleuritic chest pain elevated white count feeling a little better still complaining of some chest discomfort on inspiration Allergies carbamazepine [From Tegretol] Allergy (Verified 05/15/15 02:25) Hives/Rash Home Medications: Levothyroxine [Synthroid*] 150 mcg PO [id number] 05/12/13 carvediloL [Coreg*] 12.5 mg PO BID 05/12/13 ALPRAZolam [Xanax] 1 mg PO BID PRN 03/11/22 Cyclobenzaprine [Flexeril*] 10 mg PO PRN PRN 03/11/22 Dextroamphetamine/Amphetamine [Adderall 30 mg Tablet] 30 mg PO BID 03/11/22 Fluoxetine HCl [Prozac] 20 mg PO DAILY 03/11/22 Pantoprazole [Protonix Tab*] 40 mg PO DAILY 03/11/22 Pregabalin [Lyrica] 50 mg PO TID 03/11/22 Tizanidine HCl [Zanaflex] 4 mg PO BEDTIME 03/11/22 Trazodone [Desyrel] 50 mg PO BEDTIME 03/11/22 terbinafine HCL [Lamisil*] 250 mg PO DAILY 03/11/22 - Past Medical/Surgical History Diabetic: No -: HTN -: Graves -: Fibromyalgia -: Insomnia -: Depression -: Anxiety -: Hep C -: -: Epidurals for back pain -: Cholecystectomy -: Appendectomy - Family History Mother Medical History: Cancer Notes: Breast Father Medical History: Heart disease - Social History Smoking Status: Current every day smoker Alcohol use: No CD- Drugs: No Caffeine use: Yes Place of Residence: Home Review of Systems 10-point ROS is otherwise unremarkable General: Weakness Respiratory: Shortness of Breath Cardiovascular: Chest Pain Physical Examination Temp Pulse Resp BP Pulse Ox 97.4 F 82 18 124/69 95 03/12/22 08:00 03/12/22 08:00 03/12/22 09:27 03/12/22 08:00 03/12/22 09:27 General: Alert, In no apparent distress, Oriented x3 Neck: Supple Respiratory: Clear to auscultation bilaterally, Crackles/rales (Minimal crackles at the right base) Cardiovascular: No edema, Regular rate/rhythm, Normal S1 S2 Gastrointestinal: Normal bowel sounds, Soft and benign Laboratory Data (last 24 hrs) 03/11/22 18:08: Sodium 136, Potassium 4.0, BUN 13, Creatinine 0.93, Glucose 106, Total Bilirubin 0.4, AST 15, ALT 22, Alkaline Phosphatase 78 03/11/22 18:08: WBC 28.50 H*, Hgb 12.9, Hct 38.3, Plt Count 364 - Problems (1) Pneumonia Current Visit: Yes Status: Acute Plan: Patient is 62 years of age admitted with sudden onset of chills rigors possibly right lower lobe pneumonia she has some opacification in the right lower zone White count is elevated patient is doing well hemodynamically stable oxygenation satisfactory plan to discharge home on levofloxacin for 7 days patient is an active smoker normal renal function follow-up with me in 2-week Qualifiers: Pneumonia type: due to unspecified organism Laterality: right
[2022-03-12] MEDS ORDERED: MORPHINE 2 MG/ML SYR IV PRN (13:25)
[2022-03-12] MEDS: NICOTINE 14 MG/PAT TD SCH (13:49)
--- NOTE | 2022-03-12 14:32 | EKG ---
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
--- NOTE | 2022-03-12 14:50 | P.PN ---
Subjective Date of Service: 03/12/22 Primary Care Provider: Yaquelin Chief Complaint: Pneumonia Subjective: No new changes Physical Examination - Vital Signs Temperature: 97.1 F Blood Pressure: 126/65 Pulse: 77 Respirations: 18 Pulse Ox (%): 94 - Physical Exam General: Alert, Oriented x3 HEENT: Atraumatic, Normocephalic Neck: Supple Respiratory: Normal air movement Cardiovascular: Regular rate/rhythm, Normal S1 S2 Gastrointestinal: Soft and benign Musculoskeletal: No swelling Integumentary: No breakdown Neurological: Normal speech - Studies Laboratory Data (last 24 hrs) 03/11/22 18:08: Sodium 136, Potassium 4.0, BUN 13, Creatinine 0.93, Glucose 106, Total Bilirubin 0.4, AST 15, ALT 22, Alkaline Phosphatase 78 03/11/22 18:08: WBC 28.50 H*, Hgb 12.9, Hct 38.3, Plt Count 364 Microbiology Data (last 24 hrs): 03/11/22 17:25 Nasopharnyx Influenza Type A Antigen Screen - Final 03/11/22 17:25 Nasopharnyx Influenza Type B Antigen Screen - Final Assessment And Plan - Plan Right lower lobe pneumonia: Patient did have x-ray finding of opacification in the right lower lobe. Per antibiotic therapy of Rocephin and azithromycin started. Continue present treatment and follow clinical course. Continue as needed pain control. History of Graves' disease now on thyroid replacement therapy. Will continue levothyroxine dose. Tobacco abuse: Will continue nicotine replacement with nicotine patch Smoking cessation encouraged Hypertension: Stable vitals. we will continue antihypertensive medication and monitor blood pressure per unit protocol.
[2022-03-12] MEDS ORDERED: AZITHROMYCIN IV 500 MG in NA CHLORIDE 0.9% 250 ML IVPB SCH (20:00)
[2022-03-12] MEDS ORDERED: ALPRAZOLAM 1 MG TABLET PO PRN (20:05)
[2022-03-12] MEDS ORDERED: CEFTRIAXONE 1,000 MG in NA CHLORIDE 0.9% 50 ML IVPB SCH (21:00)
[2022-03-12] MEDS ORDERED: TRAZODONE 50 MG TABLET PO SCH (21:00)
[2022-03-12] MEDS: FLUOXETINE 20 MG CAP PO SCH (22:18)
[2022-03-12] MEDS: PREGABALIN 50 MG CAP PO SCH (22:18)
[2022-03-12] MEDS: carvediloL 12.5 MG TAB PO SCH (22:19)
[2022-03-12] MEDS: FENTANYL CITR 100 MCG/2 ML IV PRN (23:42)
[2022-03-13 04:41] LABS: Hematocrit 32.5 % (36.0-45.0); Lymphocytes % 23.3 % (15.3-44.8); MCV 87.6 fL (80-100); MPV 8.1 fL (7.6-11.3); RBC Red Blood Cell Count 3.71 M/uL (3.86-4.86)
[2022-03-13 04:50] LABS: Potassium 4.2 mmol/L (3.5-5.1)
[2022-03-13] MEDS ORDERED: LEVOTHYROXINE SOD 0.1 MG TAB PO SCH (06:00)
[2022-03-13] MEDS: FENTANYL CITR 100 MCG/2 ML IV PRN ×2 (06:28→10:29)
[2022-03-13] MEDS ORDERED: PANTOPRAZOLE 40MG TABLET PO SCH (07:30)
[2022-03-13] MEDS: ENOXAPARIN 40 MG/0.4 ML SQ SCH (08:30)
[2022-03-13] MEDS: NICOTINE 14 MG/PAT TD SCH (08:32)
[2022-03-13] MEDS: FLUOXETINE 20 MG CAP PO SCH (08:32)
[2022-03-13 08:33] VITALS: BP 159/80
[2022-03-13] MEDS: carvediloL 12.5 MG TAB PO SCH (08:33)
[2022-03-13] MEDS: PREGABALIN 50 MG CAP PO SCH (08:33)
[2022-03-13 09:21] VITALS: O2SAT 96
[2022-03-13 10:28] VITALS: TEMP 97.2
[2022-03-13] MEDS ORDERED: ALBUTEROL 2.5 MG/3 ML NEB SOL NEB PRN (12:00)
== END 2022-03-13 12:50 | disposition home or self-care (01) | DRG 195 ==
LOC: ER 16:51 → ERHOLD 20:21 → 4TH 22:05
PROVIDERS: ADMIT Internal Medicine Nephrology; ATTEND Hospitalist
DX: J18.9 Pneumonia, unspecified organism (principal); I10 Essential (primary) hypertension; M79.7 Fibromyalgia; E05.00 Thyrotoxicosis with diffuse goiter without thyrotoxic crisis or storm; F17.210 Nicotine dependence, cigarettes, uncomplicated; Z88.5 Allergy status to narcotic agent; Z88.8 Allergy status to other drugs, medicaments and biological substances; Z90.49 Acquired absence of other specified parts of digestive tract; Z79.899 Other long term (current) drug therapy; Z79.890 Hormone replacement therapy; Z20.822 Contact with and (suspected) exposure to COVID-19
CPT/HCPCS: 36415; 70450; 71045; 80048; 80053; 80061; 81001; 81003; 83605; 83735; 84100; 84145; 84439; 84443; 84484; 85025; 87040; 87804; 93005; 94010; 94760; 96374; 96375; 99285; J0456; J1650; J2405; J3010; J7030; J7050; U0003

== ENCOUNTER 2022-03-23 16:43 | Emergency (ER) | payer OTHER ==
--- OUTSIDE RECORDS SUMMARY | 2022-03-23 16:47 | XMS REPORT | Continuity of Care Document ---
:1960 Author Organization [facility] t Address [address] [place] [address] Care Team Providers Name Role Phone Yaquelin Gama MD, William Primary Care Physician [phone] Raysa Bah MD Attending Clinician RAYSA [...] rs active active ity of problems problems [facility] Allergies, Adverse Reactions, Alerts Allergy Allergy Status [...] Univers EPINE INGREDI 08-04 ity of 00:00: [address] Branch Carbamaz Propensi Active 2017-07 Method i epine ty to 08-04 st adverse 00:00: Hospita reaction 00 l s to drug Family History Family Member Diagnosis Comments Start Date Stop Date Source Natural sister [facility] Natural brother [facility] Natural father Heart disease [facility] Natural mother Cancer [facility] Social History Social Habit Start Date Stop Date Quantity Comments Source History SDPA [facility] Std Drinks Hospit al History [facility] History of tobacco Cigarette Smoker University of use [facility] Exposure to 2022-01-08 2022-01-18 Not sure [facility] SARS-CoV-2 (event) 00:00:00 13:18:00 [facility] Tobacco use and 2022-01-18 2022-01-18 Smokeless Universit y of exposure 00:00:00 00:00:00 tobacco non-user [facility] Alcohol intake 2018-07-13 2018-07-13 Current drinker [facility] 00:00:00 00:00:00 of alcohol [facility] (finding) Cigarettes smoked 2018-07-10 2018-07-10 [facility] current (pack per 00:00:00 00:00:00 Hospita l day) - Reported Cigarette 2018-07-10 2018-07-10 [facility] pack-years 00:00:00 00:00:00 Hospital History SDOH 2018-07-10 2018-07-10 1 [facility] Alcohol Frequency 00:00:00 00:00:00 Hospita l Alcohol Comment 2018-07-10 2018-07-10 very rarely [facility] t 00:00:00 00:00:00 Hospital Sex Ass[birth year] At [birth year] [facility] 00:00:00 00:00:00 Hospital Smoking Status Start Date Stop Date Source Smokes tobacco daily 2022-01-18 00:00:00 [facility] Medic[facility] Ordered Filled Start Stop Current [...] mcg by ity of tablet 10:48: mouth. [address] terbinafine Yes 250mg Take 250 U nivers HCl 250 mg 7-16 mg by ity of tablet 10:48: mouth. [address] pregabalin Yes 50mg Take 50 mg U nivers (LYRICA) 50 7-16 by mouth. ity of mg capsule 10:48: [address] HYDROcodone Yes 1{tbl} Take 1 Un lamar -acetaminop 7-16 tablet by ity of hen 7.5-325 10:48: [place] [facility] levothyroxi Yes 125ug Take 125 U nivers ne 125 mcg 7-16 mcg by ity of tablet 10:48: mouth. [address] terbinafine Yes 250mg Take 250 U nivers HCl 250 mg 7-16 mg by ity of tablet 10:48: mouth. [address] pregabalin Yes 50mg Take 50 mg U nivers (LYRICA) 50 7-16 by mouth. ity of mg capsule 10:48: [address] carvedilol Yes Univers 12.5 mg 7-02 ity of tablet 00:00: [address] carvedilol Yes Univers 12.5 mg 7-02 ity of tablet 00:00: [address] SERTraline Yes Univers 50 mg 7-01 ity of tablet 00:00: [address] SERTraline Yes Univers 50 mg 7-01 ity of tablet 00:00: [address] ALPRAZolam Yes TK 1 T PO Un lamar 1 mg tablet 6-21 BID ity of 00:00: [address] ALPRAZolam Yes TK 1 T PO Un lamar 1 mg tablet 6-21 BID ity of 00:00: [address] carvedilol Yes 12.5mg Q.5D Take 12.5 [facility] (COREG) 1-[address] 12.5 MG 18:02: mouth 2 Hospita tablet 22 (two) l times a day. HYDROcodone Yes 1{tbl} Q8H Take 1 Me thodi [...] every l 125 mcg morning. tablet temazepam 2018-0 Yes 30mg QD Take 30 mg Me [...] mg 22 daily. l tablet ibuprofen Yes [id number] 600mg Take 1 Tab Univers (MOTRIN) 2-07 by mouth ity of 600 mg 00:00: every 6 [place] tablet 00 (six) Medical hours as Branch needed for Pain. ibuprofen Yes [id number] 600mg Take 1 Tab Univers (MOTRIN) 2-07 by mouth ity of 600 mg 00:00: every 6 [place] tablet 00 (six) Medical hours as Branch needed for Pain. Vital Signs Vital Name Observation Time Observation Value Comments Source Body weight 2022-01-18 19:15:00 81.647 kg [facility] BMI 2022-01-18 19:15:00 32.92 kg/m2 [facility] Procedures This patient has no known procedures. Plan of Care Planned Activity Planned Date Details Comments Source Future Scheduled 2022-03-07 HEPATITIS B VACCINES [facility] Test 02:49:44 (1 of 3 - 3-dose series) [code = HEPATITIS B VACCINES (1 of 3 - 3-dose series)] Future Scheduled 2022-03-07 COVID-19 VACCINE (#1) [facility] Test 02:49:44 [code = COVID-19 VACCINE (#1)] Future Scheduled 2022-03-07 Screening for [facility] Test 02:49:44 malignant neoplasm of cervix (procedure) [code = 511164946] Future Scheduled 2022-03-07 BREAST CANCER [facility] Test 02:49:44 SCREENING [code = BREAST CANCER SCREENING] Future Scheduled 2022-03-07 COLONOSCOPY SCREENING [facility] Test 02:49:44 [code = COLONOSCOPY SCREENING] Future Scheduled 2022-03-07 SHINGLES VACCINES (1 [facility] Test 02:49:44 of 2) [code = SHINGLES VACCINES (1 of 2)] Future Scheduled 2022-03-07 INFLUENZA VACCINE [facility] Test 02:49:44 [code = INFLUENZA VACCINE] Future Scheduled 2022-03-07 HEPATITIS B VACCINES [facility] Test 02:49:44 (1 of 3 - 3-dose series) [code = HEPATITIS B VACCINES (1 of 3 - 3-dose series)] Future Scheduled 2022-03-07 COVID-19 VACCINE (#1) Me [facility] Test 02:49:44 [code = COVID-19 VACCINE (#1)] Future Scheduled 2022-03-07 [facility] for [facility] Test 02:49:44 malignant neoplasm of cervix (procedure) [code = 517954911] Future Scheduled 2022-03-07 [facility]CER [facility] Test 02:49:44 SCREENING [code = BREAST CANCER SCREENING] Future Scheduled 2022-03-07 COLONOSCOPY SCREENING [facility] Test 02:49:44 [code = COLONOSCOPY SCREENING] Future Scheduled 2022-03-07 SHINGLES VACCINES (1 [facility] Test 02:49:44 of 2) [code = SHINGLES VACCINES (1 of 2)] Future Scheduled 2022-03-07 INFLUENZA VACCINE [facility] Test 02:49:44 [code = INFLUENZA VACCINE] Future Scheduled COVID-19 VACCINE (1) [facility] Test [code = COVID-19 VACCINE (1)] Future Scheduled Hepatitis C screening [facility] Test (procedure) [code = 028268753] Future Scheduled [facility]ening for [facility] Test malignant neoplasm of cervix (procedure) [code = 604953294] Future Scheduled [facility]AST [facility]CER [facility] Test SCREENING [code = BREAST CANCER SCREENING] Future Scheduled COLONOSCOPY SCREENING Me [facility] [place] [facility] Test [code = COLONOSCOPY SCREENING] Future Scheduled SH[facility]LES VACCINES [facility] Test (#1) [code = SHINGLES VACCINES (#1)] Future Scheduled INFLUENZA VACCINE [facility] Test [code = INFLUENZA VACCINE] Encounters Start End Encounter Admission Attending Care Care Encounter Source Date/Time Date/Time Type Type Clinicians Facility Department ID 2022-02-21 2022-02-21 Telephone Raysa Bah [id number] Univers 00:00:00 00:00:00 R Y [id number] it y of NATIONAL [id number] [facility] B[facility] [id number] [facility]. [address] 2022-01-18 2022-01-18 Office Raysa Bah [facility] [id number] Univers 13:45:00 15:54:35 Visit R Y [id number] it y of NATIONAL [id number] [facility] BANK [id number] [facility]. [address] [place] 2022-01-18 2022-01-18 Outpatient R RAYSA BAH [facility] [id number] [facility] 13:45:00 15:54:35 ity of [facility] 2019-02-01 2019-02-01 Telephone Beck [facility] [id number] 00:00:00 00:00:00 Otto Nuno [id number] [place] [id number] Professio [id number] [facility] [address] Results This patient has no known results.
[2022-03-23 18:01] LABS: Absolute Lymphocytes (CBC) 1.7 K/uL (0.7-4.9); Hematocrit 41.9 % (36.0-45.0); Lymphocytes % 16.2 % (15.3-44.8); MCV 89.8 fL (80-100); MPV 8.6 fL (7.6-11.3); RBC Red Blood Cell Count 4.66 M/uL (3.86-4.86)
[2022-03-23 18:06] LABS: Protime INR 0.96
[2022-03-23 18:15] LABS: Albumin 3.7 g/dL (3.4-5.0); Bilirubin Direct 0.1 mg/dL (0-0.2); Bilirubin Total 0.4 mg/dL (0.2-1.0); Magnesium 1.9 mg/dL (1.8-2.4); Potassium 4.2 mmol/L (3.5-5.1); Troponin High Sensitivity 5.6 pg/mL (<58.9)
[2022-03-23] MEDS ORDERED: LORazepam 2 MG/ML VIAL ONE (18:35)
[2022-03-23] MEDS ORDERED: KETOROLAC 30 MG/ML INJ ONE (18:36)
[2022-03-23] MEDS ORDERED: LEVALBUTEROL 1.25 MG/3 ML NEB ONE (18:36)
--- NOTE | 2022-03-23 18:41 | RAD REPORT ---
EXAM DESCRIPTION: Marylu Single View03/23/2022 6:03 pm CLINICAL HISTORY: sob COMPARISON: March 11, 2022 FINDINGS: The lungs appear clear of acute infiltrate. The heart is normal size IMPRESSION: No acute abnormalities displayed
[2022-03-23] MEDS ORDERED: NA CHLORIDE 0.9% 1,000 ML ONE (19:54)
--- NOTE | 2022-03-23 20:30 | RAD REPORT ---
EXAM DESCRIPTION: CT - Chest For Pe Angio - 03/23/2022 7:59 pm CLINICAL HISTORY: sob COMPARISON: November 2021 TECHNIQUE: Dynamically enhanced axial 3 mm thick images of the chest were obtained during administra tion of <100> mL Isovue 370 IV contrast. Coronal and oblique reconstruction images were generated and reviewed. Exam utilizes a protocol for optimal evaluation of pulmonary arterial tree. Maximum intensity projections 3D imaging was utilized All CT scans are performed using dose optimization technique as appropriate and may include automated exposure control or mA/KV adjustment according to patient size. FINDINGS: A pulmonary embolus is not seen. A thoracic aortic aneurysm is not noted. A pleural effusion is not seen. A pericardial effusion is not seen. Tiny subpleural nodule lingula unchanged. Tiny bilateral subpleural nodules unchanged. Additional sma ll pulmonary nodules have resolved. Small patchy opacity within right lower and middle lobes. IMPRESSION: Negative for a pulmonary embolism. Small patchy right lung opacities probably inflammatory. Stable tiny lung nodules probably benign
[2022-03-23 21:52] LABS: Urine Blood Negative (Negative); Urine Glucose Negative (Negative); Urine Protein Negative (Negative)
[2022-03-23] MEDS ORDERED: levoFLOXacin 750 MG TAB ONE (22:03)
[2022-03-23 22:19] LABS: Urine RBC <5 /HPF (None Seen)
[2022-03-23] MEDS ORDERED: FENTANYL CITR 100 MCG/2 ML ONE (22:38)
--- NOTE | 2022-03-23 23:54 | ER ---
Nurse's Notes [facility] Name: Ronnell Rubalcava Age: 62 yrs Sex: Female : 1960 Arrival Date: 03/23/2022 Time: 16:44 Bed 19 Private MD: Diagnosis: Other pneumonia, unspecified organism Presentation: 03/23 16:49 Chief complaint: Recently hospitalized for pneumonia, reports worsening SOB and right hb sided chest pain with breathing x 3-4 days. Coronavirus screen: At this time, the client does not indicate any symptoms associated with coronavirus-19. Ebola Screen: No symptoms or risks identified at this time. Onset of symptoms is unknown. 16:49 Method Of Arrival: Ambulatory hb 16:49 Acuity: BRYANT 3 hb 19:00 Initial Sepsis Screen: Does the patient meet any 2 criteria? No. Patient's initial ke1 sepsis screen is negative. Does the patient have a suspected source of infection? No. Patient's initial sepsis screen is negative. Risk Assessment: Do you want to hurt yourself or someone else? Patient reports no desire to harm self or others. Triage Assessment: 03/24 00:06 Respiratory: ke1 Historical: - Allergies: 03/23 16:52 Morphine; hb 16:52 Tegretol; hb - PMHx: 16:52 Back pain; Fibromyalgia; graves disease; Hypertension; hyperthyroidism; Hypothyroidism; hb Screenin:12 Abuse screen: Denies threats or abuse. Denies injuries from another. Nutritional tp1 screening: No deficits noted. Tuberculosis screening: No symptoms or risk factors identified. Fall Risk No fall in past 12 months (0 pts). No secondary diagnosis (0 pts). IV access (20 points). Ambulatory Aid- None/Bed Rest/Nurse Assist (0 pts). Gait- Normal/Bed Rest/Wheelchair (0 pts) Mental Status- Oriented to own ability (0 pts). Total Donald Fall Scale indicates No Risk (0-24 pts). Assessment: 17:55 General: Appears distressed, uncomfortable, Behavior is cooperative, anxious, crying. tp1 Pain: Complains of pain in back Pain does not radiate. Pain currently is 10 out of 10 on a pain scale. Is continuous. Neuro: Level of Consciousness is awake, alert, obeys commands, Oriented to person, place, time, situation. Cardiovascular: Patient's skin is warm and dry. Respiratory: Reports shortness of breath at rest Airway is patent Respiratory effort is even, unlabored. GI: Abdomen is round non-distended. : No signs and/or symptoms were reported regarding the genitourinary system. EENT: No signs and/or symptoms were reported regarding the EENT system. Derm: Skin is pink, warm \\T\\ dry. Musculoskeletal: Circulation, motion, and sensation intact. 18:49 Cardiovascular: Rhythm is sinus rhythm. Respiratory: Breath sounds are clear tp1 bilaterally. 18:52 Reassessment: Patient appears in no apparent distress at this time. Patient and/or tp1 family updated on plan of care and expected duration. Pain level reassessed. Patient is alert, oriented x 3, equal unlabored respirations, skin warm/dry/pink. pt appears to be anxious but is calmer than initial assessment. 21:36 Reassessment: Unable to draw blood, labs called. ke1 21:46 Reassessment: lab in the room for blood draw. ke1 22:00 Pain: Complains of pain in back and head Pain currently is 7 out of 10 on a pain scale. ke1 Quality of pain is described as aching. 22:14 Reassessment: Labs unable to draw blood Cx. Set 1 collected by nurse and sent. CN ke1 notified and will attempt to draw Set 2. Vital Signs: 16:49 BP 148 / 88; Pulse 109; Resp 20; Temp 99.8(O); Pulse Ox 100% on R/A; Weight 81.65 kg; hb Height 5 ft. 2 in. (157.48 cm); Pain 8/10; 17:30 BP 178 / 73; Pulse 89; Resp 20; Pulse Ox 100% on R/A; tp1 18:53 BP 128 / 63; Pulse 81; Resp 16; Pulse Ox 99% on R/A; tp1 19:15 Pain 2/10; ke1 20:30 BP 118 / 76; Pulse 75; Resp 17; Pulse Ox 100% on R/A; ke1 22:00 BP 151 / 75; Pulse 72; Resp 18; Pulse Ox 99% ; ke1 23:00 Pain 3/10; ke1 03/24 00:08 BP 124 / 72; Pulse 79; Resp 18; Pulse Ox 100% ; Pain 1/10; ke1 09/17 16:49 Body Mass Index 32.92 (81.65 kg, 157.48 cm) hb ED Course: 03/23 16:44 Patient arrived in ED. am2 16:48 Jose Ramon Houston PA is PHCP. cp 16:48 Feli Iraheta MD is Attending Physician. cp 16:52 Triage completed. hb 16:52 Arm band placed on. hb 16:55 Jaimie Conti, RN is Primary Nurse. tp1 16:55 Patient has correct armband on for positive identification. Bed in low position. Call tp1 light in reach. Side rails up X 1. Adult w/ patient. 17:35 Inserted saline lock: 20 gauge in left antecubital area, using aseptic technique. Blood tp1 collected. 18:05 XRAY Chest (1 view) In Process Unspecified. EDMS 20:01 CT Chest For PE Angio In Process Unspecified. EDMS 21:52 Influenza Screen (a \\T\\ B) Sent. ke1 21:53 COVID-19 SARS RT PCR (Document "Date of Onset" if Symptomatic) Sent. ke1 23:53 Moisés Loredo MD is Referral Physician. cp 03/24 00:05 No provider procedures requiring assistance completed. IV discontinued. ke1 Administered Medications: 03/23 18:38 Drug: Ketorolac 15 mg Route: IVP; Site: left antecubital; tp1 19:15 Follow up: Pain 2/10 Adult; Response: Pain is decreased ke1 18:41 Drug: Ativan (LORazepam) 0.5 mg Route: IVP; Site: left antecubital; tp1 19:15 Follow up: Response: RASS: Alert and Calm (0) ke1 18:44 Drug: Xopenex (levalbuterol) (3) 1.25 mg Route: Inhalation; tp1 20:23 Drug: NS 0.9% 1000 ml Route: IV; Rate: 1 bolus; Site: left antecubital; ke1 21:15 Follow up: IV Status: Completed infusion ke1 22:39 Drug: fentaNYL (PF) 25 mcg Route: IVP; Site: left antecubital; ke1 23:00 Follow up: Pain 3/10 Adult; Response: Pain is decreased ke1 22:41 Drug: LevaQUIN (levofloxacin) 750 mg Route: PO; ke1 03/24 00:04 Follow up: Response: No adverse reaction ke1 Medication: 03/23 18:12 VIS not applicable for this client. tp1 Outcome: 23:53 Discharge ordered by MD. macdonald 03/24 00:06 Discharged to home ambulatory. ke1 Condition: good Discharge instructions given to patient. 00:13 Patient left the ED. ke1 Signatures: Dispatcher [employer] EDMS Jose Ramon Houston PA PA cp Baxter, Heather, RN RN Cheyanne Whitehead 2 Jaimie Conti RN RN tp1 Leticia Bernal RN RN ke1 Corrections: (The following items were deleted from the chart) 03/23 22:17 22:00 Pain: Complains of pain in back and head ke1 ke1
--- NOTE | 2022-03-23 23:54 | EDPHYS ---
Physician Documentation [facility] Name: Ronnell Rubalcava Age: 62 yrs Sex: Female : 1960 Arrival Date: 03/23/2022 Time: 16:44 Bed 19 Private MD: ED Physician Feli Iraheta HPI: 03/23 17:10 This 62 yrs old Female presents to ER via Ambulatory with complaints of Breathing cp Difficulty, Back Pain. 17:10 The patient has shortness of breath at rest. Onset: The symptoms/episode began/occurred cp 3-4 days ago. Duration: The symptoms are continuous, and are steadily getting worse. 17:10 Associated signs and symptoms: Pertinent positives: chest pain, non-productive cough, cp Pertinent negatives: diaphoresis, fever, hemoptysis, vomiting. Severity of symptoms: in the emergency department the symptoms are unchanged despite home interventions. Patient reports being hospitalized for pneumonia earlier this month. Historical: - Allergies: 16:52 Morphine; hb 16:52 Tegretol; hb - PMHx: 16:52 Back pain; Fibromyalgia; graves disease; Hypertension; hyperthyroidism; Hypothyroidism; hb ROS: 17:15 Constitutional: Negative for chills, fever, poor PO intake. cp 17:15 Eyes: Negative for injury, pain, redness, and discharge. cp 17:15 Cardiovascular: Negative for chest pain, edema, palpitations. 17:15 Respiratory: Positive for cough, "sounds productive", shortness of breath, at rest. 17:15 Abdomen/GI: Negative for abdominal pain, vomiting, diarrhea, constipation. 17:15 Back: Positive for pain at rest, Negative for injury or acute deformity. cp 17:15 : Negative for urinary symptoms. 17:15 Skin: Negative for cellulitis, rash. 17:15 Neuro: Negative for altered mental status, dizziness, headache, numbness, weakness. cp 17:15 All other systems are negative. Exam: 17:20 Constitutional: The patient appears in no acute distress, alert, awake, cp non-diaphoretic, non-toxic, well developed, well nourished, anxious, uncomfortable. 17:20 Head/Face: Normocephalic, atraumatic. cp 17:20 Eyes: Periorbital structures: appear normal, Conjunctiva: normal, no exudate, no cp injection, Sclera: no appreciated abnormality, Lids and lashes: appear normal, bilaterally. 17:20 ENT: External ear(s): are unremarkable, Nose: is normal, Mouth: Lips: moist, Oral mucosa: pink and intact, moist, Posterior pharynx: Airway: no evidence of obstruction, patent, swelling, is not appreciated, erythema, is not appreciated, exudate, is not appreciated. 17:20 Neck: ROM/movement: is normal, is supple, without pain, no range of motions cp limitations, no meningismus. 17:20 Chest/axilla: Inspection: normal, Palpation: is normal, no crepitus, no tenderness. 17:20 Cardiovascular: Rate: tachycardic, Rhythm: regular, Edema: is not appreciated, JVD: is not appreciated. 17:20 Respiratory: the patient does not display signs of respiratory distress, Respirations: normal, no use of accessory muscles, no retractions, labored breathing, is not present, Breath sounds: bronchial sounds, that are mild, are heard in the left posterior lower lobe, right posterior middle lobe and right posterior lower lobe, rhonchi, are not appreciated, stridor, is not appreciated, wheezing: is not appreciated. 17:20 Abdomen/GI: Inspection: abdomen appears normal, Palpation: abdomen is soft and non-tender, in all quadrants. 17:20 Back: pain, that is moderate, of the right mid back, ROM is painful, with all movement, vertebral tenderness, is not appreciated. 17:20 Skin: cellulitis, is not appreciated, no rash present. 17:20 Neuro: Orientation: to person, place \\T\\ time. Mentation: is normal, Motor: moves all fours, strength is normal, Sensation: is normal, Gait: is steady, at a normal pace, without difficulty. 18:55 ECG was reviewed by the Attending Physician. cp Vital Signs: 16:49 BP 148 / 88; Pulse 109; Resp 20; Temp 99.8(O); Pulse Ox 100% on R/A; Weight 81.65 kg; hb Height 5 ft. 2 in. (157.48 cm); Pain 8/10; 17:30 BP 178 / 73; Pulse 89; Resp 20; Pulse Ox 100% on R/A; tp1 18:53 BP 128 / 63; Pulse 81; Resp 16; Pulse Ox 99% on R/A; tp1 19:15 Pain 2/10; ke1 20:30 BP 118 / 76; Pulse 75; Resp 17; Pulse Ox 100% on R/A; ke1 22:00 BP 151 / 75; Pulse 72; Resp 18; Pulse Ox 99% ; ke1 23:00 Pain 3/10; ke1 03/24 00:08 BP 124 / 72; Pulse 79; Resp 18; Pulse Ox 100% ; Pain 1/10; ke1 03/23 16:49 Body Mass Index 32.92 (81.65 kg, 157.48 cm) hb MDM: 03/23 16:54 Patient medically screened. cp 19:00 Differential diagnosis: Bronchitis CHF exacerbation, Chronic Obstructive Pulmonary cp Disease pneumonia, Pneumothorax pulmonary edema, Pulmonary Embolism Sepsis Unstable Angina. 23:53 Data reviewed: vital signs, nurses notes, lab test result(s), EKG, radiologic studies, cp CT scan, plain films. 23:53 Data interpreted: monitor car operator: rate is 75 beats/min, rhythm is normal sinus rhythm, cp Pulse oximetry: on room air is 99 %. Test interpretation: by ED physician or midlevel provider: ECG, plain radiologic studies. Counseling: I had a detailed discussion with the patient and/or guardian regarding: the historical points, exam findings, and any diagnostic results supporting the discharge/admit diagnosis, lab results, radiology results, the need for outpatient follow up, a wellness director, to return to the emergency department if symptoms worsen or persist or if there are any questions or concerns that arise at home. Response to treatment: the patient's symptoms have markedly improved after treatment. Special discussion: Based on the patient's history, exam, and Dx evaluation, there is no indication for emergent intervention or inpatient Tx. It is understood by the patient/guardian that if the Sx's persist or worsen they need to return immediately for re-evaluation. ED course: VSS. Patient appears non-toxic and no signs of respiratory distress. Repeat lactate wnl, normal wbc. Will treat with oral Levaquin and discharge to home for continued monitoring. 03/23 17:06 Order name: Basic Metabolic Panel; Complete Time: 18:32 cp 03/23 18:32 Interpretation: Normal except: NA 135; GFR 57. cp 03/23 17:06 Order name: CBC with Diff; Complete Time: 18:13 cp 03/23 18:14 Interpretation: Normal except: MERI% 80.2; MN% 2.7; NEUT A 8.3. cp 03/23 17:06 Order name: LFT's; Complete Time: 18:32 cp 03/23 18:32 Interpretation: Normal except: AST 13. cp 03/23 17:06 Order name: Magnesium; Complete Time: 18:32 cp 03/23 17:06 Order name: NT PRO-BNP; Complete Time: 18:32 cp 03/23 17:06 Order name: Troponin HS; Complete Time: 18:32 cp 03/23 18:32 Interpretation: Reviewed. cp 03/23 17:06 Order name: Lactate; Complete Time: 19:22 cp 03/23 19:22 Interpretation: Reviewed. cp 03/23 17:08 Order name: D-Dimer; Complete Time: 18:13 cp 03/23 18:06 Order name: Protime (+INR); Complete Time: 18:13 EDMS 03/23 19:21 Order name: Urine Microscopic Only; Complete Time: 23:03 cp 03/23 20:41 Order name: Procalcitonin; Complete Time: 23:41 cp 03/23 20:41 Order name: Blood Culture Adult (2) cp 03/23 20:42 Order name: COVID-19 SARS RT PCR (Document "Date of Onset" if Symptomatic); Complete cp Time: 23:03 03/23 17:06 Order name: XRAY Chest (1 view); Complete Time: 19:22 cp 03/23 17:06 Order name: EKG; Complete Time: 17:07 cp 03/23 17:06 Order name: Cardiac monitoring; Complete Time: 18:14 cp 03/23 17:06 Order name: EKG - Nurse/Tech; Complete Time: 18:49 cp 03/23 17:06 Order name: IV Saline Lock; Complete Time: 18:14 cp 03/23 17:06 Order name: Labs collected and sent; Complete Time: 18:14 cp 03/23 19:21 Order name: CT Chest For PE Angio; Complete Time: 20:38 cp 03/23 20:39 Interpretation: Report reviewed. cp 03/23 20:42 Order name: Influenza Screen (a \\T\\ B); Complete Time: 23:03 cp 03/23 20:44 Order name: Lactate; Complete Time: 23:03 cp 03/23 21:52 Order name: Urine Dipstick-Ancillary; Complete Time: 23:03 EDMS 03/23 17:06 Order name: O2 Per Protocol; Complete Time: 18:14 cp 03/23 17:06 Order name: O2 Sat Monitoring; Complete Time: 18:14 cp 03/23 19:21 Order name: Urine Dipstick-Ancillary (obtain specimen); Complete Time: 21:52 cp EC:55 Rate is 73 beats/min. Rhythm is regular. ME interval is normal. QRS interval is normal. cp QT interval is normal. Interpreted by me. Reviewed by me. Administered Medications: 18:38 Drug: Ketorolac 15 mg Route: IVP; Site: left antecubital; tp1 19:15 Follow up: Pain 2/10 Adult; Response: Pain is decreased ke1 18:41 Drug: Ativan (LORazepam) 0.5 mg Route: IVP; Site: left antecubital; tp1 19:15 Follow up: Response: RASS: Alert and Calm (0) ke1 18:44 Drug: Xopenex (levalbuterol) (3) 1.25 mg Route: Inhalation; tp1 20:23 Drug: NS 0.9% 1000 ml Route: IV; Rate: 1 bolus; Site: left antecubital; ke1 21:15 Follow up: IV Status: Completed infusion ke1 22:39 Drug: fentaNYL (PF) 25 mcg Route: IVP; Site: left antecubital; ke1 23:00 Follow up: Pain 3/10 Adult; Response: Pain is decreased ke1 22:41 Drug: LevaQUIN (levofloxacin) 750 mg Route: PO; ke1 03/24 00:04 Follow up: Response: No adverse reaction ke1 Disposition Summary: 03/23/22 23:53 Discharge Ordered Location: Home cp Problem: an ongoing problem cp Symptoms: have improved cp Condition: Stable cp Diagnosis - Other pneumonia, unspecified organism cp Followup: cp - With: Moisés Loredo MD - When: 2 - 3 days - Reason: Recheck today's complaints Discharge Instructions: - Discharge Summary Sheet cp - Community-Acquired Pneumonia, Adult cp Forms: - Medication Reconciliation Form cp - Thank You Letter cp - Antibiotic Education cp - Prescription Opioid Use cp Prescriptions: - albuterol sulfate 90 mcg/actuation Inhalation HFA aerosol inhaler - inhale 1 puff by INHALATION route every 4-6 hours; 1 Inhaler; Refills: 0, cp Product Selection Permitted - levofloxacin 750 mg Oral Tablet - take 1 tablet by ORAL route once daily for 7 days continue taking evening of cp 03-24-2022; 6 tablet; Refills: 0, Product Selection Permitted - Diclofenac Sodium 75 mg Oral Tablet Sustained Release - take 1 tablet by ORAL route 2 times per day; 30 tablet; Refills: 0, Product cp Selection Permitted Addendum: 03/25/2022 15:33 STAFF ATTESTATION STATEMENT: I was immediately available onsite in the emergency s d2 department for consultation in the care of this patient. I did not see or examine this patient. Feli Iraheta MD. Signatures: Dispatcher [employer] EDMS Jose Ramon Houston PA PA cp Ynes Pinon RN RN Jaimie Fitzgerald RN RN tp1 Leticia Bernal RN RN ke1 Feli Iraheta MD MD sd2 Corrections: (The following items were deleted from the chart) 03/23 18:08 17:07 PROTIME (+INR)+[id number].BRZ ordered. EDNV EDMS 18:14 18:14 Normal except. cp cp
--- NOTE | 2022-03-24 15:55 | EKG ---
Test Date: 2022-03-23 Test Time: 18:50:57 Tobacco Weigher: ZAC MEASUREMENT RESULTS: Intervals: Rate: 73 TX: 124 QRSD: 76 QT: 364 QTc: 401 Copen: P: 46 TX: 124 QRS: 54 T: 58 INTERPRETIVE STATEMENTS: Sinus rhythm with premature atrial complexes Otherwise normal ECG Compared to ECG 03/11/2022 18:11:55 Atrial premature complex(es) now present Electronically Signed On 03-24-22 15:54:24 CDT by Elio Benjamin
[2022-03-25 12:00] VITALS: TEMP 99.8
[2022-03-25 12:22] VITALS: BP 124/72; O2SAT 100
== END 2022-03-24 00:13 | disposition home or self-care (01) ==
LOC: ER 16:43
DX: J18.8 Other pneumonia, unspecified organism (principal); M54.9 Dorsalgia, unspecified; Z20.822 Contact with and (suspected) exposure to COVID-19
CPT/HCPCS: 96361; 93005; 87040; 85025; 80048; 36415; 83735; 85610; 85379; 80076; 83605 ×2; 84484; 84145; 83880; 87804 ×2; 71275; 71045; 96375; 96374; 99285; U0003; Q9967; J7614; J3010; J7030; 81003; 81015

== ENCOUNTER 2022-05-14 18:26 | Emergency (ER) | payer OTHER ==
--- OUTSIDE RECORDS SUMMARY | 2022-05-14 18:32 | XMS REPORT | Continuity of Care Document ---
:1960 Author Organization [facility] t Address [address] [place] [address] Care Team Providers Name Role Phone Yaquelin Gama MD, Josh Primary Care Physician [phone] TY SEN Attending Clinician Unavailable Ty Lloyd Attending Clinician Raysa Bah MD Attending Clinician RAYSA BAH Attending Clinician Unavailable Beck ACEVES, Otto Attending Clinician TY SEN Admitting Clinician Unavailable Payers Payer Name Policy Type Policy Number Effective Date Expiration Date S ource MEDICARE PART A [id number] 1998 \\T\\ B 00:00:00 Problems Condition Condition Condition Status Onset Resolution Last Treating Co mments Source Name Details Category Date Date Treatment Clinician Date 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 disc 03-29 ity of disorder disorder 00:00: [place] of lumbar of lumbar 00 Medi sacha region region Branch with with myelopathy myelopathy Morbid Morbid Disease Active Univers obesity obesity 03-29 ity of 00:00: [place] 00 Medical Branch Sciatica Sciatica Disease Active Unive rs - ity of 00:00: [place] 00 Medical Branch Solitary Solitary Disease Active 2022-0 Unive rs pulmonary pulmonary 03-29 ity of nodule nodule 00:00: [place] [facility] Tobacco Tobacco Disease Active Univers user user 03-29 ity of 00:00: [place] [facility] Unspecifie Unspecifie Disease Active U nivers d asthma, d asthma, 03-29 ity of uncomplica [place] [facility] Visual Visual Disease Active Univers disturbanc disturbanc 03-29 it y of e e 00:00: [place] [facility] Attention Attention Disease Active Uni vers and and 03-29 [place] of concentrat concentrat [place] Medical deficit deficit Branch Chronic Chronic Disease Active Univers obstructiv obstructiv 03-29 it y of e e 00:00: [place] pulmonary pulmonary 00 Medi sacha disease disease Branch Class 1 Class 1 Disease Active Univers obesity obesity 03-29 ity of 00:00: [place] [facility] Obesity Obesity Disease Active Univers with body with body 03-29 ity of mass index mass index [place] 30 or 30 or Medical greater greater Branch Gastroesop Gastroesop Disease Active U nivers hageal hageal 03-29 ity of reflux reflux 00:00: [place] disease disease Medical Branch Narrowing Narrowing Disease Active Met hodi of lumbar of lumbar 1-04 st spine spine 00:00: Hospita 00 l Insomnia Insomnia Disease Active Unive rs 2-05 ity of 00:00: [place] [facility] Pain in Pain in Disease Active Univers unspecifie unspecifie 2-05 it y of d knee d knee 00:00: [place] [facility] Weight Weight Disease Active Univers gain gain 2-05 ity of 00:00: [place] 00 Medical Branch Encounter Encounter Disease Active Uni vers for for 2-05 ity of general general 00:00: [place] adult adult 00 Medical medical medical Branch examinatio examinatio n without n without abnormal abnormal findings findings Acute Acute Disease Active 2016-07 Univers upper upper 2-21 ity of respirator respirator [place] 00 Medical infection infection Bran ch Attention Attention Disease Active 2016-07 Uni vers deficit deficit 1-06 ity of disorder disorder 00:00: [place] [facility] Chronic Chronic Disease Active 2016-07 Univers pain pain 07-12 ity of 00:00: [place] [facility] Essential Essential Disease Active 2016-07 Uni vers hypertensi hypertensi 07-12 it y of on on 00:00: Medical Branch Generalize Generalize Disease Active 2016-07 U nivers d anxiety d anxiety 0 ity of disorder disorder 00:00: [place] [facility] Chronic Chronic Disease Active 2016-07 Univers hepatitis hepatitis 0 ity of C C 00:00: [place] [facility] No known No known Disease Unive rs active active ity of problems problems [facility] Allergies, Adverse Reactions, Alerts Allergy Allergy Status Severity Reaction(s) Onset Inactive Treating Comm ents Source Name Type Date Date Clinician MORPHINE DRUG Active Rash Univers INGREDI 03-29 ity of 00:00: [place] 00 Medical Branch Morphine Propensi Active Rash Univer s ty to 03-29 ity of adverse 00:00: [place] reaction 00 Medical s Branch ZOLPIDEM DRUG Active Unknown-Cmnt 0 Un lamar INGREDI 8-11 ity of 00:00: [place] 00 Medical Branch DIVALPRO DRUG Active Unknown-Cmnt 0 Un lamar EX INGREDI 8-11 ity of SODIUM 00:00: 00 Medical Branch QUETIAPI DRUG Active Unknown-Cmnt 0 Un lamar NE INGREDI 8-11 ity of 00:00: [place] 00 Medical Branch Zolpidem Drug Active Unknown - 2021-0 Unive rs Allergy See comments 8-11 ity of 00:00: 00 Medical Branch Divalpro Drug Active Unknown - 2021-0 Unive rs ex Allergy See comments 8-11 ity of Sodium 00:00: [place] 00 Medical Branch Quetiapi Drug Active Unknown - 2021-0 Unive rs ne Allergy See comments 8-11 ity of 00:00: 00 Medical Branch Chlorhex Propensi Active Itching Itching Meth alin idine ty to 07-[address] Gluconat adverse 00:00: areas she Hosp opal e reaction 00 used with l s to the CHG drug wipes this morning. CHLORHEX DRUG Active Low ITCHING Univers IDINE INGREDI 07-10 ity of GLUCONAT 00:00: [place] E 00 Medical Branch Chlorhex Propensi Active Itching Itching Univ ers idine ty to 07-10 over ity of Gluconat adverse 00:00: [place] reaction 00 used with Medic al s the G Branch wipes this morning. CARBAMAZ DRUG Active Rash 2017-07 Univers EPINE INGREDI 08-04 ity of 00:00: [place] 00 Medical Branch Carbamaz Propensi Active 2017-07 Method i epine ty to 08-04 st adverse 00:00: Hospita reaction 00 l s to drug Carbamaz Propensi Active Rash 2017-07 Univer s epine ty to 08-04 ity of adverse 00:00: [place] reaction 00 Medical s Branch Family History Family Member Diagnosis Comments Start Date Stop Date Source Natural brother Heart disease Method ist [facility] Natural father Heart disease Methodi [facility] Natural mother Cancer [facility] Natural sister [facility] Social History Social Habit Start Date Stop Date Quantity Comments Source History of tobacco Cigarette Smoker University of use [facility] History [facility] Alcohol Std Drinks Hospit al History [facility] Exposure to 2022-03-19 2022-03-29 Yes University of SARS-CoV-2 (event) 00:00:00 18:31:00 [facility] Tobacco use and 2022-01-18 2022-01-18 Smokeless Universit y of exposure 00:00:00 00:00:00 tobacco non-user [facility] Alcohol intake 2018-07-13 2018-07-13 Current drinker [facility] 00:00:00 00:00:00 of alcohol Hospital (finding) Cigarettes smoked 2018-07-10 2018-07-[address] current (pack per 00:00:00 00:00:00 Hospita l day) - Reported Cigarette 2018-07-10 2018-07-10 [facility] pack-years 00:00:00 00:00:00 Hospital History SDOH 2018-07-10 2018-07-10 1 [facility] Alcohol Frequency 00:00:00 00:00:00 Hospita l Alcohol Comment 2018-07-10 2018-07-10 very rarely Methodis t 00:00:00 00:00:00 Hospital Sex Assigned At [birth year] [facility] 00:00:00 00:00:00 Hospital Smoking Status Start Date Stop Date Source Smokes tobacco daily 2022-01-18 00:00:00 [facility] ity of [facility] Medications Ordered Filled Start Stop Current Ordering Indication Dosage Frequency Signature Comments Components Source Medication Medication Date Date Medication? Clinician (SIG) Name Name aspirin 2021- No 325mg 325 mg, Unive rs tablet 325 03-30 Oral, ity of mg 00:30: 23:44 ONCE, 1 [place] 00 :00 dose, On Medical Fri Branch 03/29/22 at 1930, AMA HYDROcodone Yes 1{tbl} Take 1 Un lamar -acetaminop 7-16 tablet by ity of hen 7.5-325 10:48: [place] mg per Medical tablet Branch levothyroxi Yes 125ug Take 125 U nivers ne 125 mcg 7-16 mcg by ity of tablet 10:48: mouth. [address] terbinafine Yes 250mg Take 250 U nivers HCl 250 mg 7-16 mg by ity of tablet 10:48: mouth. [address] pregabalin Yes 50mg Take 50 mg U nivers (LYRICA) 50 7-16 by mouth. ity of mg capsule 10:48: [address] HYDROcodone Yes 1{tbl} Take 1 Un lamar -acetaminop 7-16 tablet by ity of hen 7.5-325 10:48: [place] mg per Medical tablet Branch levothyroxi Yes 125ug Take 125 U nivers ne 125 mcg 7-16 mcg by ity of tablet 10:48: mouth. [address] terbinafine Yes 250mg Take 250 U nivers HCl 250 mg 7-16 mg by ity of tablet 10:48: mouth. [address] pregabalin Yes 50mg Take 50 mg U nivers (LYRICA) 50 7-16 by mouth. ity of mg capsule 10:48: [address] HYDROcodone Yes 1{tbl} Take 1 Un lamar -acetaminop 7-16 tablet by ity of hen 7.5-325 10:48: [place] mg per Medical tablet Branch levothyroxi 2019-0 Yes 125ug Take 125 U nivers ne 125 mcg 7-16 mcg by ity of tablet 10:48: mouth. [address] terbinafine Yes 250mg Take 250 U nivers HCl 250 mg 7-16 mg by ity of tablet 10:48: mouth. [address] pregabalin Yes 50mg Take 50 mg U nivers (LYRICA) 50 7-16 by mouth. ity of mg capsule 10:48: [address] carvedilol Yes Univers 12.5 mg 7-02 ity of tablet 00:00: [address] carvedilol Yes Univers 12.5 mg 7-02 ity of tablet 00:00: [address] carvedilol Yes Univers 12.5 mg 7-02 ity of tablet 00:00: [address] SERTraline Yes Univers 50 mg 7- ity of tablet 00:00: [address] SERTraline Yes Univers 50 mg 7-01 ity of tablet 00:00: [address] SERTraline Yes Univers 50 mg 7-01 ity of tablet 00:00: [address] ALPRAZolam Yes TK 1 T PO Un lamar 1 mg tablet 6-21 BID ity of 00:00: [address] ALPRAZolam Yes TK 1 T PO Un lamar 1 mg tablet 6-21 BID ity of 00:00: [address] ALPRAZolam Yes TK 1 T PO Un lamar 1 mg tablet 6-21 BID ity of 00:00: [address] carvedilol Yes 12.5mg Q.5D Take 12.5 Methodi (COREG) 1-[address] 12.5 MG 18:02: mouth 2 Hospita tablet 22 (two) l times a day. HYDROcodone Yes 1{tbl} Q8H Take 1 Me thodi -acetaminop 1-[address] hen (NORCO) 18:02: mouth Hospi ta 7.5-325 mg 22 every 8 l per tablet (eight) hours as needed for moderate pain. ranitidine Yes 150mg Q.5D Take 150 Me [...] 22 every l 125 mcg morning. tablet carvedilol 2019-0 Yes 12.5mg Q.5D Take [...] Hospita 250 mg 22 daily. l tablet temazepam 2019-0 Yes 30mg QD Take [...] 250 mg 22 daily. l tablet carvedilol 2018-0 Yes 12.5mg Q.5D Take 12.5 Methodi (COREG) [...] 250 mg 22 daily. l tablet carvedilol 2018-0 Yes 12.5mg Q.5D Take 12.5 Methodi (COREG) [...] 22 daily. l tablet ibuprofen 2011- Yes [id number] 600mg Take 1 Tab Univers (MOTRIN) 2-07 by mouth ity of 600 mg 00:00: every 6 [place] tablet 00 (six) Medical hours as Branch needed for Pain. ibuprofen 2011-0 Yes [id number] 600mg Take 1 Tab Univers (MOTRIN) 2-07 by mouth ity of 600 mg 00:00: every 6 [place] tablet 00 (six) Medical hours as Branch needed for Pain. ibuprofen 2011- Yes [id number] 600mg Take 1 Tab Univers (MOTRIN) 2-07 by mouth ity of 600 mg 00:00: every 6 [place] tablet 00 (six) Medical hours as Branch needed for Pain. Vital Signs Vital Name Observation Time Observation Value Comments Source Systolic blood 2022-03-30 03:00:00 130 mm[Hg] Univer sity of pressure [facility] Diastolic blood 2022-03-30 03:00:00 78 mm[Hg] [facility] Heart rate 2022-03-30 03:00:00 73 /min [facility] Respiratory rate 2022-03-30 03:00:00 18 /min [facility] Oxygen saturation in 2022-03-30 03:00:00 98 /min [facility] blood by [facility] Pulse oximetry [place] Body temperature 2022-03-29 23:34:[address] [facility] Body height 2022-03-29 23:34:00 157.5 cm [facility] Body weight 2022-03-29 23:34:00 81.647 kg [facility] BMI 2022-03-29 23:34:00 32.92 kg/m2 [facility] Body weight 2022-01-18 19:15:00 81.647 kg [facility] BMI 2022-01-18 19:15:00 32.92 kg/m2 [facility] Procedures Procedure Date / Time Performing Clinician Source Performed TROPONIN I 2022-03-30 02:15:00 Ty Sen [facility] COVID-19 (ID NOW RAPID 2022-03-30 01:30:00 Ty Sen [facility] TESTING) [facility] URINALYSIS 2022-03-30 00:10:00 Ty Sen [facility] XR CHEST 2 VW 2022-03-29 23:56:[facility] 2022-03-29 23:44:00 [facility] COMP. METABOLIC PANEL 2022-03-29 23:44:00 Ty Sen [facility] ([id number]) [facility] CBC WITH DIFF 2022-03-29 23:44:00 Ty Sen [facility] PROTHROMBIN TIME / INR 2022-03-29 23:44:00 Ty Sen [facility] N-TERMINAL PRO-BNP 2022-03-29 23:44:00 Ty Sen [facility] NOTICE OF PRIVACY 2022-03-29 23:29:25 Doctor Unassigned, No Univ [facility] PRACTICES Name [facility] CONSENT/REFUSAL FOR 2022-03-29 23:27:10 [facility] Plan of Care Planned Activity Planned Date Details Comments Source Future Scheduled 2022-05-09 HEPATITIS B VACCINES Met [facility] Test 16:24:05 (1 of 3 - 3-dose series) [code = HEPATITIS B VACCINES (1 of 3 - 3-dose series)] Future Scheduled 2022-05-09 COVID-19 VACCINE (#1) [facility] Test 16:24:05 [code = COVID-19 VACCINE (#1)] Future Scheduled 2022-05-09 Screening for [facility] Test 16:24:05 malignant neoplasm of cervix (procedure) [code = 797243745] Future Scheduled 2022-05-09 BREAST CANCER [facility] Test 16:24:05 SCREENING [code = BREAST CANCER SCREENING] Future Scheduled 2022-05-09 COLONOSCOPY SCREENING [facility] Test 16:24:05 [code = COLONOSCOPY SCREENING] Future Scheduled 2022-05-09 SHINGLES VACCINES (1 Met [facility] Test 16:24:05 of 2) [code = SHINGLES VACCINES (1 of 2)] Future Scheduled 2022-05-09 INFLUENZA VACCINE Method [facility] Test 16:24:05 [code = INFLUENZA VACCINE] Future Scheduled 2022-04-12 HEPATITIS B VACCINES Met [facility] Test 19:40:30 (1 of 3 - 3-dose series) [code = HEPATITIS B VACCINES (1 of 3 - 3-dose series)] Future Scheduled 2022-04-12 COVID-19 VACCINE (#1) [facility] Test 19:40:30 [code = COVID-19 VACCINE (#1)] Future Scheduled 2022-04-12 Screening for [facility] Test 19:40:30 malignant neoplasm of cervix (procedure) [code = 414666375] Future Scheduled 2022-04-12 BRE[facility] CANCER [facility] Test 19:40:30 SCREENING [code = BREAST CANCER SCREENING] Future Scheduled 2022-04-12 COLONOSCOPY SCREENING [facility] Test 19:40:30 [code = COLONOSCOPY SCREENING] Future Scheduled 2022-04-12 SHINGLES VACCINES (1 Met [facility] Test 19:40:30 of 2) [code = SHINGLES VACCINES (1 of 2)] Future Scheduled 2022-04-12 INFLUENZA VACCINE Method [facility] Test 19:40:30 [code = INFLUENZA VACCINE] Future Scheduled 2022-03-07 HEPATITIS B VACCINES Met [facility] Test 02:49:44 (1 of 3 - 3-dose series) [code = HEPATITIS B VACCINES (1 of 3 - 3-dose series)] Future Scheduled 2022-03-07 COVID-19 VACCINE (#1) [facility] Test 02:49:44 [code = COVID-19 VACCINE (#1)] Future Scheduled 2022-03-07 Screening for [facility] Test 02:49:44 malignant neoplasm of cervix (procedure) [code = 187740616] Future Scheduled 2022-03-07 BREAST CANCER [facility] Test 02:49:44 SCREENING [code = BREAST CANCER SCREENING] Future Scheduled 2022-03-07 COLONOSCOPY SCREENING [facility] Test 02:49:44 [code = COLONOSCOPY SCREENING] Future Scheduled 2022-03-07 SHINGLES VACCINES (1 Met [facility] Test 02:49:44 of 2) [code = SHINGLES VACCINES (1 of 2)] Future Scheduled 2022-03-07 INFLUENZA VACCINE Method [facility] Test 02:49:44 [code = INFLUENZA VACCINE] Future Scheduled 2022-03-07 HEPATITIS B VACCINES Met [facility] Test 02:49:44 (1 of 3 - 3-dose series) [code = HEPATITIS B VACCINES (1 of 3 - 3-dose series)] Future Scheduled 2022-03-07 COVID-19 VACCINE (#1) [facility] Test 02:49:44 [code = COVID-19 VACCINE (#1)] Future Scheduled 2022-03-07 Screening for [facility] Test 02:49:44 malignant neoplasm of cervix (procedure) [code = 968257474] Future Scheduled 2022-03-07 BREAST CANCER [facility] Test 02:49:44 SCREENING [code = BREAST CANCER SCREENING] Future Scheduled 2022-03-[address] [facility] Test 02:49:44 [code = COLONOSCOPY SCREENING] Future Scheduled 2022-03-07 SHINGLES VACCINES (1 [facility] Test 02:49:44 of 2) [code = SHINGLES VACCINES (1 of 2)] Future Scheduled 2022-03-07 INFLUENZA VACCINE Method ist Hospital Test 02:49:44 [code = INFLUENZA VACCINE] Future Scheduled COVID-19 VACCINE (1) Met [facility] Test [code = COVID-19 VACCINE (1)] Future Scheduled Hepatitis C screening [facility] Test (procedure) [code = 781418506] Future Scheduled Screening for [facility] Test malignant neoplasm of cervix (procedure) [code = 708140995] Future Scheduled BREAST CANCER [facility] Test SCREENING [code = BREAST CANCER SCREENING] Future Scheduled COLONOSCOPY SCREENING [facility] Test [code = COLONOSCOPY SCREENING] Future Scheduled SHINGLES VACCINES Method ist Hospital Test (#1) [code = SHINGLES VACCINES (#1)] Future Scheduled INFLUENZA VACCINE Method [facility] Hospital Test [code = INFLUENZA VACCINE] Encounters Start End Encounter Admission Attending Care Care Encounter Source Date/Time Date/Time Type Type Clinicians Facility Department ID 2022-03-29 2022-03-29 Emergency X [facility] ERT [id number] Univers 18:29:00 22:25:00 TY blum [facility] 2022-03-29 2022-03-29 Emergency Sen, [facility] [id number] Univers 18:29:00 22:25:00 [facility] [id number] i ty of [place] [id number] [facility] [id number] [facility] 084 Branch 2022-02-21 2022-02-21 Telephone Raysa Bah [facility] [id number] Univers 00:00:00 00:00:00 R Y [id number] it y of [facility] [id number] [facility] [id number] [facility] [address]G. 136 Branch 2022-01-18 2022-01-18 Office Raysa Bah [id number] Univers 13:45:00 15:54:35 Visit R Y [id number] it y of [facility] [id number] [facility] BANK [id number] [facility] [address]LDG. [address] Branch 2022-01-18 2022-01-18 [id number] [facility] 13:45[facility]22-01-18 [facility] [id number] [facility] 13:45[facility]00 [facility] 2019-02-01 Tele[facility] [place], [facility] [id number] 00:00:00 00:00:00 Otto Nuno [id number] [place] [id number] Professio [id number] [facility] 2019-02-01 2019-02-01 Telephone [place], [facility] [id number] Univers 00:00:00 00:00:00 Otto Nuno [id number] i ty of [place] [id number] [place] [phone] Me dical nal 220 [facility] Results Test Description Test Time Test Comments Results Result Comments Source TROPONIN I 2022-03-30 02:59:18 Test Item Value Reference Range Interpretation Comme nts TROPONIN I (test code = See_Comment [Au tomated message] The [id number]) system which ge nerated this result tra nsmitted reference range : <=0.034. The reference r elver was not used to int erpret this result as normal/abnormal . CASANDRA (test code = CASANDRA) Reference (Normal) Range (defined by the 99th percentile reference limit): <= 0.034 ng/mL Note: Cardiac troponin begins to rise 3-4 hours after the onset of ischemia. Repeat in 4-6 hours if the sample was drawn within 3-4 hours of the onset of the symptom and found normal. Diagnosis of myocardial injury is made with acute changes in cTn concentrations with at least one serial sample above the 99th percentile upper reference limit (URL), taken together with the patient's clinical presentation. Biotin has been reported to cause a negative bias, interpret results relative to patient's use of biotin. Lab Interpretation Normal (test code = 48846-5) [id number]38 Test Item Value Reference Interpretation Comments Range TROPONIN I (test See_Comment [Automated code = 2111209865) message] The system which generated this result transmitted reference range : <=0.034. The reference range was not used to interpret this result as normal/abnormal . CASANDRA (test code = Reference (Normal) CASANDRA) Range (defined by the 99th percentile reference limit): <= 0.034 ng/mL Note: Cardiac troponin begins to rise 3-4 hours after the onset of ischemia. Repeat in 4-6 hours if the sample was drawn within 3-4 hours of the onset of the symptom and found normal. Diagnosis of myocardial injury is made with acute changes in cTn concentrations with at least one serial sample above the 99th percentile upper reference limit (URL), taken together with the patient's clinical presentation. Biotin has been reported to cause a negative bias, interpret results relative to patient's use of biotin. Lab Interpretation Normal (test code = 10933-3) [facility] [id number] 00:18:40 Test Item Value Reference Range Interpretation Comments NT-proBNP (test code 146 pg/mL See_Comment H [Autom ated = [id number]) message] The system which generated this result transmitted reference range : <=125. The reference range was not used to interpret this result as normal/abnormal . CASANDRA (test code = CASANDRA) Biotin has been reported to cause a negative bias, interpret results relative to patient's use of biotin. Lab Interpretation Abnormal (test code = 01633-7) [facility] (71986)2022-03-30 00:09:55 Test Item Value Reference Range Interpretation Comments NA (test code = 137 mmol/L 135-145 5762259580) K (test code = 4.8 mmol/L 3.5-5 9165540990) CL (test code = 102 mmol/L 98-108 3829310572) CO2 TOTAL (test code = 31 mmol/L 23-31 7352012817) AGAP (test code = 2-16 0870200714) BUN (test code = 15 mg/dL 7-23 0607146844) GLUCOSE (test code = 90 mg/dL 70-110 8629250512) CREATININE (test code = 1.04 mg/dL 0.5-1.04 2992360080) TOTAL BILI (test code = 0.4 mg/dL 0.1-1.9 7475928309) CALCIUM (test code = 8.6 mg/dL 8.6-10.6 1165148916) T PROTEIN (test code = 6.0 g/dL 6.3-8.2 L 8791434332) ALBUMIN (test code = 4.0 g/dL 3.5-5 5382201132) ALK PHOS (test code = 63 U/L 34-122 5677117897) ALTv (test code = 21 U/L 5-35 1742-6) AST(SGOT) (test code = 21 U/L 13-40 2959823303) eGFR (test code = mL/min/1.73m2 8416342526) CASANDRA (test code = CASANDRA) Association of Glomerular Filtration Rate (GFR) and Staging of Kidney Disease* + --+ --+ ------+| GFR (mL/min/1.73 m2) ?| With Kidney Damage ?| ?Without Kidney Damage+ --------+ --------+ +| ?>90 ?| ?Stage one ?| ? Normal ?+ ---+ ---+ -------+| ?60-89 ?| ?Stage two ?| ? Decreased GFR ? + --+ --+ ------+| ?30-59 ?| ?Stage three ?| ? Stage three ? + --+ --+ ------+| ?15-29 ?| ?Stage four ? | ? Stage four ?+ ---+ ---+ -------+| ?<15 (or dialysis) ? ?| ?Stage five ? | ? Stage five ?+ ---+ ---+ -------+ *Each stage assumes the associated GFR level has been in effect for at least three months. ?Stages 1 to 5, with or without kidney disease, indicate chronic kidney disease. Notes: Determination of stages one and two (with eGFR >59mL/min/1.73 m2) requires estimation of kidney damage for at least three months as defined by structural or functional abnormalities of the kidney, manifested by either:Pathological abnormalities or Markers of kidney damage (including abnormalities in the composition of the blood or urine or abnormalities in imaging tests). Lab Interpretation Abnormal (test code = 72145-2) [facility] / [id number] 00:03:16 Test Item Value Reference Range Interpretation Comments PROTIME PATIENT (test See_Comment [Auto mated message] code = 5964-2) The system wh ich generated this result transmitted ref erence range: 12.0 - 1 4.7 Seconds. The re ference range was not u sed to interpret this result as normal/abnor mal. INR (test code = 6301-6) Nor mal INR <1.1; Warfarin Therap eutic range 2.0 to 3. 0 or 2.5 to 3.5, dep ending upon the indica tions. Lab Interpretation (test Normal code = 89576-5) [facility] [id number] 23:59:14 Test Item Value Reference Range Interpretation Comments WBC (test code = See_Comment [Automated 6690-2) message] The sy stem which generated this result transmitted reference range : 4.30 - 11.10 10*3/?L. The reference range was not used to interpret this result as normal/abnormal . RBC (test code = See_Comment [Automated 859-8) message] The sy stem which generated this result transmitted reference range : 3.93 - 5.25 10*6/?L. The reference range was not used to interpret this result as normal/abnormal . HGB (test code = 12.9 g/dL 11.6-15 718-7) HCT (test code = 38.7 % 35.7-45.2 4544-3) MCV (test code = 91.7 fL 80.6-95.5 787-2) MCH (test code = 30.6 pg 25.9-32.8 785-6) MCHC (test code = 33.3 g/dL 31.6-35.1 786-4) RDW-SD (test code = 45.3 fL 39-49.9 63221-6) RDW-CV (test code = 13.5 % 12-15.5 788-0) PLT (test code = See_Comment [Automated 777-3) message] The sy stem which generated this result transmitted reference range : 166 - 358 10*3/ ?L. The reference r elver was not used to interpret this result as normal/abnormal . MPV (test code = 10.5 fL 9.5-12.9 20023-0) NRBC/100 WBC (test See_Comment [Automat ed code = [id number]) message] The system which generated this result transmitted reference range : 0.0 - 10.0 /100 WBCs. The refer ence range was not u sed to interpret th is result as normal/abnormal . NRBC x10^3 (test code See_Comment [Auto mated = [id number]) message] The s ystem which generated this result transmitted reference range : 10*3/?L. The reference range was not used to interpret this result as normal/abnormal . GRAN MAT (NEUT) % 57.5 % (test code = 770-8) IMM GRAN % (test code 1.10 % = [id number]) LYMPH % (test code = 31.2 % 736-9) MONO % (test code = 8.5 % 5905-5) EOS % (test code = 0.9 % 713-8) BASO % (test code = 0.8 % 706-2) GRAN MAT x10^3(ANC) 5.72 10*3/uL 1.88-7.09 (test code = 2762721047) IMM GRAN x10^3 (test 0.11 10*3/uL 0-0.06 H code = 8275764072) LYMPH x10^3 (test code 3.10 10*3/uL 1.32-3.29 = 731-0) MONO x10^3 (test code 0.85 10*3/uL 0.33-0.92 = 742-7) EOS x10^3 (test code = 0.09 10*3/uL 0.03-0.39 711-2) BASO x10^3 (test code 0.08 10*3/uL 0.01-0.07 H = 704-7) Lab Interpretation Abnormal (test code = 20577-8) [facility]"
--- NOTE | 2022-05-14 19:30 | RAD REPORT ---
EXAM DESCRIPTION: RAD - Chest Single View - 05/14/2022 7:23 pm CLINICAL HISTORY: CHEST PAIN Chest pain. COMPARISON: Chest Single View dated 04/12/2022; Chest Single View dated 03/23/2022; Chest Single View dated 03/11/2022; Chest Pa And Lat (2 Views) dated 02/02/2021 FINDINGS: Portable technique limits examination quality. The lungs are grossly clear. The heart is normal in size. No displaced fractures. IMPRESSION: No acute intrathoracic process suspected.
[2022-05-14 19:45] LABS: Absolute Lymphocytes (CBC) 2.6 K/uL (0.7-4.9); Hematocrit 42.2 % (36.0-45.0); Lymphocytes % 36.9 % (15.3-44.8); MCV 89.4 fL (80-100); MPV 8.3 fL (7.6-11.3); RBC Red Blood Cell Count 4.72 M/uL (3.86-4.86)
[2022-05-14 21:15] LABS: SARS-COV-2 RT PCR NEGATIVE (NEGATIVE)
[2022-05-14 21:40] LABS: Potassium 3.9 mmol/L (3.5-5.1); Troponin High Sensitivity 6.1 pg/mL (<58.9)
--- NOTE | 2022-05-14 22:06 | ER ---
Nurse's Notes [facility] Name: Ronnell Rubalcava Age: 62 yrs Sex: Female : 1960 Arrival Date: 05/14/2022 Time: 18:28 Bed 20 Private MD: Diagnosis: Chest pain, unspecified Presentation: 05/14 18:44 Chief complaint: Patient states: i was sick back in March, last week pattie been iw getting sick again and pattie been feeling bad and getting very sweaty with a cough and just feeling bad. Coronavirus screen: Vaccine status: Patient reports receiving the 2nd dose of the covid vaccine. Client denies travel out of the [place] in the last 14 days. Ebola Screen: Patient negative for fever greater than or equal to 101.5 degrees Fahrenheit, and additional compatible Ebola Virus Disease symptoms Patient denies exposure to infectious person. Patient denies travel to an Ebola-affected area in the 21 days before illness onset. Initial Sepsis Screen: Does the patient meet any 2 criteria? No. Patient's initial sepsis screen is negative. Does the patient have a suspected source of infection? No. Patient's initial sepsis screen is negative. Risk Assessment: Do you want to hurt yourself or someone else? Patient reports no desire to harm self or others. 18:44 Method Of Arrival: Ambulatory iw 18:44 Acuity: BRYANT 3 iw 22:12 Onset of symptoms is unknown. as6 Triage Assessment: 18:47 General: Appears uncomfortable, obese, Behavior is cooperative, appropriate for age, iw anxious, crying. Historical: - Allergies: 18:47 Morphine; iw 18:47 Tegretol; iw - PMHx: 18:47 Back pain; Fibromyalgia; graves disease; Hypertension; hyperthyroidism; Hypothyroidism; iw - Immunization history:: Adult Immunizations up to date. - Social history:: Smoking status: Patient reports the use of cigarette tobacco products, smokes one-half pack cigarettes per day. Screenin:19 Abuse screen: Denies threats or abuse. Denies injuries from another. Nutritional as6 screening: No deficits noted. Tuberculosis screening: No symptoms or risk factors identified. Fall Risk None identified. Assessment: 19:18 General: Appears uncomfortable, Behavior is cooperative, agitated, Reports feeling ill as6 for fatigue for. Pain: Complains of pain in anterior aspect of left upper chest and left breast Pain radiates to back Quality of pain is described as sharp, shooting. Neuro: Level of Consciousness is awake, alert, obeys commands. Cardiovascular: Denies chest pain, fatigue, shortness of breath, Heart tones S1 S2 present. Respiratory: Reports shortness of breath on exertion cough that is Respiratory effort is even, unlabored. EENT: Reports nasal congestion. 19:36 Respiratory: Breath sounds with crackles. as6 Vital Signs: 18:44 BP 176 / 91; Pulse 98; Resp 18; Temp 97.7; Pulse Ox 98% ; Weight 81.65 kg; Height 5 ft. iw 2 in. (157.48 cm); 19:17 BP 160 / 87; Pulse 82; Resp 19 S; Pulse Ox 98% on R/A; as6 20:55 BP 147 / 76; Pulse 70; Resp 17 S; Pulse Ox 99% on R/A; as6 22:05 BP 154 / 78; Pulse 78; Resp 16 S; Pulse Ox 98% on R/A; as6 18:44 Body Mass Index 32.92 (81.65 kg, 157.48 cm) iw ED Course: 18:28 Patient arrived in ED. as 18:47 Triage completed. iw 18:47 Arm band placed on right wrist. EKG completed in triage. Results shown to MD. iw 19:07 Poli Orellana, RN is Primary Nurse. as6 19:09 Fabien Coleman MD is Attending Physician. sp3 19:20 Placed in gown. Bed in low position. Call light in reach. Side rails up X 1. Client as6 placed on continuous cardiac and pulse oximetry monitoring. NIBP monitoring applied. 19:24 XRAY Chest (1 view) In Process Unspecified. EDMS 19:35 Inserted saline lock: 20 gauge in left antecubital area, using aseptic technique. Blood as6 collected. 19:36 Basic Metabolic Panel Sent. as6 19:36 CBC with Diff Sent. as6 19:36 NT PRO-BNP Sent. as6 19:36 Troponin HS Sent. as6 22:11 No provider procedures requiring assistance completed. IV discontinued, intact, as6 bleeding controlled, No redness/swelling at site. Pressure dressing applied. Administered Medications: No medications were administered Medication: 19:19 VIS not applicable for this client. as6 Outcome: 22:05 Discharge ordered by . sp3 22:11 Discharged to home ambulatory. as6 22:11 Condition: stable 22:11 Discharge instructions given to patient, Instructed on discharge instructions, follow up and referral plans. Demonstrated understanding of instructions, follow-up care. 22:12 Patient left the ED. as6 Signatures: Dispatcher [employer] Emmanuelle Cruz Irene, RN Fabien Mcneill MD MD sp3 Poli Orellana RN RN as6
--- NOTE | 2022-05-14 22:06 | EDPHYS ---
Physician Documentation [facility] Name: Ronnell Rubalcava Age: 62 yrs Sex: Female : 1960 Arrival Date: 05/14/2022 Time: 18:28 Bed 20 Private MD: ED Physician Fabien Coleman HPI: 05/14 19:30 This 62 yrs old Female presents to ER via Ambulatory with complaints of Chest Pain, sp3 Shortness Of Breath. 19:30 62-year-old female with a history of hypertension, Graves' disease, fibromyalgia, prior sp3 CHF density ED with cough, congestion and mild shortness of breath as well as mild chest pain for 7 days. 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 She is scheduled for an outpatient stress test next week but states that she may not be able to make it secondary to cost. Today she presents "wanting to make sure she is not having a heart attack". She denies headache, neck pain, fever, back pain, abdominal pain, nausea, vomiting, diarrhea, peripheral edema, syncope, focal neurodeficit dyspnea on exertion, or any other critical findings at this time on ROS.. Historical: - Allergies: 18:47 Morphine; iw 18:47 Tegretol; iw - PMHx: 18:47 Back pain; Fibromyalgia; graves disease; Hypertension; hyperthyroidism; Hypothyroidism; iw - Immunization history:: Adult Immunizations up to date. - Social history:: Smoking status: Patient reports the use of cigarette tobacco products, smokes one-half pack cigarettes per day. ROS: 19:32 Constitutional: Negative for fever, chills, and weight loss, Eyes: Negative for injury, sp3 pain, redness, and discharge, ENT: Negative for injury, pain, and discharge, Neck: Negative for injury, pain, and swelling, Abdomen/GI: Negative for abdominal pain, nausea, vomiting, diarrhea, and constipation, Back: Negative for injury and pain, MS/Extremity: Negative for injury and deformity, Skin: Negative for injury, rash, and discoloration, Neuro: Negative for headache, weakness, numbness, tingling, and seizure, Psych: Negative for depression, anxiety, suicide ideation, homicidal ideation, and hallucinations, Allergy/Immunology: Negative for hives, rash, and allergies, Endocrine: Negative for neck swelling, polydipsia, polyuria, polyphagia, and marked weight changes. 19:32 All other systems are negative. Exam: 19:32 Constitutional: This is a well developed, well nourished patient who is awake, alert, sp3 and in no acute distress. Head/Face: Normocephalic, atraumatic. Eyes: Pupils equal round and reactive to light, extra-ocular motions intact. Lids and lashes normal. Conjunctiva and sclera are non-icteric and not injected. Cornea within normal limits. Periorbital areas with no swelling, redness, or edema. ENT: Nares patent. No nasal discharge, no septal abnormalities noted. External auditory canals are clear. Oropharynx with no redness, swelling, or masses, exudates, or evidence of obstruction, uvula midline. Mucous membranes moist. Neck: Trachea midline, no thyromegaly or masses palpated, and no cervical lymphadenopathy. Supple, full range of motion without nuchal rigidity, or vertebral point tenderness. No Meningismus. Chest/axilla: Normal chest wall appearance and motion. Nontender with no deformity. No lesions are appreciated. Cardiovascular: Regular rate and rhythm with a normal S1 and S2. No gallops, murmurs, or rubs. Normal PMI, no JVD. No pulse deficits. Respiratory: Lungs have equal breath sounds bilaterally, clear to auscultation and percussion. No rales, rhonchi or wheezes noted. No increased work of breathing, no retractions or nasal flaring. Abdomen/GI: Soft, non-tender, with normal bowel sounds. No distension or tympany. No guarding or rebound. No evidence of tenderness throughout. Back: No spinal tenderness. No costovertebral tenderness. Full range of motion. Skin: Warm, dry with normal turgor. Normal color with no rashes, no lesions, and no evidence of cellulitis. MS/ Extremity: Pulses equal, no cyanosis. Neurovascular intact. Full, normal range of motion. Neuro: Awake and alert, GCS 15, oriented to person, place, time, and situation. Cranial nerves II-XII grossly intact. Motor strength 5/5 in all extremities. Sensory grossly intact. Cerebellar exam normal. Normal gait. Psych: Awake, alert, with orientation to person, place and time. Behavior, mood, and affect are within normal limits. 19:32 ECG was reviewed by the Attending Physician. EKG demonstrates normal sinus rhythm at 82 bpm with normal intervals, normal QRS, normal axis, occasional PAC, nonspecific diffuse ST/T changes without evidence of acute ischemia. Vital Signs: 18:44 BP 176 / 91; Pulse 98; Resp 18; Temp 97.7; Pulse Ox 98% ; Weight 81.65 kg; Height 5 ft. iw 2 in. (157.48 cm); 19:17 BP 160 / 87; Pulse 82; Resp 19 S; Pulse Ox 98% on R/A; as6 20:55 BP 147 / 76; Pulse 70; Resp 17 S; Pulse Ox 99% on R/A; as6 22:05 BP 154 / 78; Pulse 78; Resp 16 S; Pulse Ox 98% on R/A; as6 18:44 Body Mass Index 32.92 (81.65 kg, 157.48 cm) iw MDM: 19:33 Data reviewed: vital signs, nurses notes. ED course: 62-year-old female with multiple sp3 medical problems presents with URI symptoms, chest pain, shortness of breath for 1 week. Patient is in no acute distress and resting comfortably. EKG demonstrates no signs of ST elevation AL. And exam otherwise. Given 7-day history of pain off and on and multiple visits here as well as with her primary care physician, I believe 1 round of cardiac markers should clearly rule out for any current or recent ischemia. Given her cough and URI symptoms, we are also addressing swabs for COVID, flu, RSV, and her x-ray will assess for pneumonia as well. Negative, consider discharged to continued cardiology follow-up which is already scheduled.. 22:04 ED course: Laboratory values reviewed and demonstrate no acute abnormality. Troponin is sp3 normal. Patient is no acute distress a chest x-ray is normal. Will discharge patient home to cardiology follow-up.. 22:05 Patient medically screened. sp3 05/14 19:13 Order name: Basic Metabolic Panel; Complete Time: 22:04 sp3 05/14 19:13 Order name: CBC with Diff; Complete Time: 20:20 sp3 05/14 19:13 Order name: NT PRO-BNP; Complete Time: 22:04 sp3 05/14 19: Order name: Troponin HS; Complete Time: 22:04 sp3 05/14 20:19 Order name: COVID-19/FLU A+B/RSV (Document "Date of Onset" if Symptomatic); Complete jb4 Time: 21:30 05/14 19:05 Order name: EKG - Nurse/Tech; Complete Time: 19:05 iw 05/14 19:13 Order name: XRAY Chest (1 view); Complete Time: 20:20 sp3 05/14 19:13 Order name: EKG; Complete Time: 19:14 sp3 05/14 19:13 Order name: Cardiac monitoring; Complete Time: 19:17 sp3 05/14 19:13 Order name: IV Saline Lock; Complete Time: 19:36 sp3 05/14 19:13 Order name: Labs collected and sent; Complete Time: 19:36 sp3 05/14 19:13 Order name: O2 Per Protocol; Complete Time: 19:17 sp3 05/14 19:13 Order name: O2 Sat Monitoring; Complete Time: 19:17 sp3 Administered Medications: No medications were administered Disposition Summary: 05/14/22 22:05 Discharge Ordered Location: Home sp3 Condition: Stable sp3 Diagnosis - Chest pain, unspecified sp3 Followup: sp3 - With: Private Physician - When: Upon discharge from the Emergency Department - Reason: Continuance of care Discharge Instructions: - Discharge Summary Sheet sp3 - Nonspecific Chest Pain, Adult, [id number] sp3 Forms: - Medication Reconciliation Form sp3 - Thank You Letter sp3 - Antibiotic Education sp3 - Prescription Opioid Use sp3 Signatures: Dispatcher [employer] Lindsey Kaur, Fabien Mcneill RN, MD MD sp3
[2022-05-14 22:47] VITALS: TEMP 97.7; O2SAT 98
[2022-05-14 23:05] VITALS: BP 154/78
--- NOTE | 2022-05-16 06:33 | EKG ---
Test Date: 2022-05-14 Test Time: 18:51:41 [place]: MEASUREMENT RESULTS: Intervals: Rate: 82 [place]: 128 QRSD: 72 QT: 344 QTc: 401 [place]: P: 55 [place]: 128 QRS: 62 T: 61 INTERPRETIVE STATEMENTS: Sinus rhythm with premature atrial complexes Otherwise normal ECG Compared to ECG 04/12/2022 23:09:56 Atrial premature complex(es) now present Electronically Signed On 05-16-22 06:30:38 [employer] by Elio Benjamin
== END 2022-05-14 22:12 | disposition home or self-care (01) ==
LOC: ER 18:26
DX: R07.9 Chest pain, unspecified (principal); I10 Essential (primary) hypertension; M79.7 Fibromyalgia; F17.210 Nicotine dependence, cigarettes, uncomplicated; Z20.822 Contact with and (suspected) exposure to COVID-19; Z88.6 Allergy status to analgesic agent
CPT/HCPCS: 93005; 85025; 80048; 36415; 84484; 83880; 0241U; 71045; 99284

== ENCOUNTER 2022-08-29 10:40 | Emergency (ER) | payer OTHER ==
--- OUTSIDE RECORDS SUMMARY | 2022-08-29 10:43 | XMS REPORT | Continuity of Care Document ---
:[address] [facility] t Address [address] [place] [address] Care Team Providers Name Role Phone Yaquelin Gama MD, Josh Primary Care Physician [phone] TY ZHAO Attending Clinician Unavailable Ty Lloyd Attending Clinician Raysa Bah MD Attending Clinician RAYSA BAH Attending Clinician Unavailable Beck ACEVES, Otto Attending Clinician TY ZHAO Admitting Clinician Unavailable Payers Payer Name Policy Type Policy Number Effective Date Expiration Date S ource MEDICARE PART A [id number] 1998 \\T\\ B 00:00:00 Problems Condition Condition [...] Branch Sciatica Sciatica Disease Active Unive rs 03-29 ity of 00:00: [place] 00 Medical Branch Solitary Solitary Disease Active 2022-0 Unive rs pulmonary pulmonary 03-29 ity of nodule nodule 00:00: [place] [facility] Tobacco Tobacco Disease Active Univers user user 03-29 ity of 00:00: [place] [facility] Unspecifie Unspecifie Disease Active U nivers d asthma, d asthma, 03-29 ity of uncomplica [place] [facility] Visual Visual Disease Active Univers disturbanc disturbanc 03-29 it y of e e 00:00: [place] [facility] Attention Attention Disease Active Uni vers and and 03-29 ity of concentrat concentrat [place] Medical deficit deficit Branch Chronic Chronic Disease Active Univers obstructiv obstructiv 03-29 it y of e e 00:00: [place] pulmonary pulmonary 00 Medi sacha disease disease Branch Class 1 Class 1 Disease Active Univers obesity obesity 03-29 ity of 00:00: [place] [facility] Obesity Obesity Disease Active Univers with body with body 03-29 ity of mass index mass index 00:[place] 30 or 30 or Medical greater greater Branch Gastroesop Gastroesop Disease Active U nivers hageal hageal 03-29 ity of reflux reflux 00:00: [place] disease disease Medical Branch Narrowing Narrowing Disease Active Met hodi of lumbar of lumbar 1-04 st spine spine 00:00: Hospita 00 l Insomnia Insomnia Disease Active Unive rs 2-05 ity of 00:00: [place] [facility] Pain in Pain in Disease Active Univers unspecifie unspecifie 2-05 it y of d knee d knee 00:00: [place] [facility] Weight Weight Disease Active Univers gain gain 2-05 ity of 00:00: [place] 00 Medical Branch Encounter Encounter Disease Active Uni vers for for 2-05 ity of general general 00:00: [place] adult adult 00 Medical medical medical Branch [...] Univers pain pain 07-12 ity of 00:00: [place] [facility] Essential Essential Disease Active 2016-07 Uni vers hypertensi hypertensi 07-12 it y of on on 00:00: Medical Branch Generalize Generalize Disease Active 2016-07 U nivers d anxiety d anxiety 0 ity of disorder disorder 00:00: [place] [facility] Chronic Chronic Disease Active 2016-07 Univers hepatitis hepatitis 0 ity of C C 00:00: [place] [facility] No known No known Disease Unive rs active active ity of problems problems [facility] Allergies, Adverse Reactions, Alerts Allergy Allergy Status Severity Reaction(s) Onset Inactive Treating Comm ents Source Name Type Date Date Clinician MORPHINE DRUG Active Rash Univers INGREDI 03-29 ity of 00:00: [place] 00 Medical Branch Morphine Propensi Active Rash Univer s ty to 03-29 ity of adverse 00:00: [place] reaction 00 Medical s Branch ZOLPIDEM DRUG Active Unknown-Cmnt 0 Un lamar INGREDI 8-11 ity of 00:00: [place] 00 Medical Branch DIVALPRO DRUG Active Unknown-Cmnt 0 Un lamar EX INGREDI 8-11 ity of SODIUM 00:00: 00 Medical Branch QUETIAPI DRUG Active Unknown-Cmnt 0 Un lamar NE INGREDI 8-11 ity of 00:00: [place] 00 Medical Branch Zolpidem Drug Active Unknown [...] s the G Branch wipes this morning. Carbamaz Propensi Active 2017-07 Method i epine ty to 08-04 st adverse 00:00: Hospita reaction 00 l s to drug Carbamaz Propensi Active Rash 2017-07 Univer s epine ty to 08-04 ity of adverse 00:00: [place] reaction 00 Medical s Branch CARBAMAZ DRUG Active Rash 2017-07 Univers EPINE INGREDI 08-04 ity of 00:00: [place] 00 Medical Branch Family History Family Member Diagnosis Comments Start Date Stop Date Source Natural brother Heart disease Method ist [facility] Natural father Heart disease Methodi [facility] Natural mother Cancer [facility] Natural sister [facility] Social History Social Habit Start Date Stop Date Quantity Comments Source History of tobacco Cigarette Smoker University of use [facility] History [facility] Alcohol Std Drinks Hospit al History [facility] Exposure to 2022-03-19 2022-03-29 Yes University of SARS-CoV-2 (event) 00:00:00 18:31:00 [facility] Tobacco use and 2022-01-18 2022-01-18 Smokeless Universit y of exposure 00:00:00 00:00:00 tobacco non-user [facility] Alcohol intake 2018-07-13 2018-07-13 Current drinker [facility] 00:00:00 00:00:00 of alcohol Hospital (finding) Cigarettes smoked 2018-07-10 2018-07-[address] current (pack per 00:00:00 00:00:00 Hospita l day) - Reported Cigarette 2018-07-10 2018-07-10 [facility] pack-years 00:00:00 00:00:00 Hospital History SDOH 2018-07-10 2018-07-10 1 [facility] Alcohol Frequency 00:00:00 00:00:00 Hospita l Alcohol Comment 2018-07-10 2018-07-10 very rarely Methodis t 00:00:00 00:00:00 Hospital Sex Assigned At [birth year] [facility] 00:00:00 00:00:00 Hospital Smoking Status Start Date Stop Date Source Smokes tobacco daily 2022-01-18 00:00:00 [facility] ity of [facility] Medications Ordered Filled Start Stop Current Ordering Indication Dosage Frequency Signature Comments Components Source Medication Medication Date Date Medication? Clinician (SIG) Name Name aspirin 2021- No 325mg 325 mg, Unive rs tablet 325 03-30 Oral, ity of mg 00:30: 23:44 ONCE, 1 [place] 00 :00 dose, On Medical Fri Branch 03/29/22 at 1930, AMA HYDROcodone Yes 1{tbl} Take 1 Un lamar -acetaminop 7-16 tablet by ity of hen 7.5-325 10:48: [place] mg per Medical tablet Branch levothyroxi Yes 125ug Take 125 U nivers ne 125 mcg 7-16 mcg by ity of tablet 10:48: mouth. [address] terbinafine Yes 250mg Take 250 U nivers HCl 250 mg 7-16 mg by ity of tablet 10:48: mouth. [address] pregabalin Yes 50mg Take 50 mg U nivers (LYRICA) 50 7-16 by mouth. ity of mg capsule 10:48: [address] HYDROcodone Yes 1{tbl} Take 1 Un lamar -acetaminop 7-16 tablet by ity of hen 7.5-325 10:48: [place] mg per Medical tablet Branch levothyroxi Yes 125ug Take 125 U nivers ne 125 mcg 7-16 mcg by ity of tablet 10:48: mouth. [address] terbinafine Yes 250mg Take 250 U nivers HCl 250 mg 7-16 mg by ity of tablet 10:48: mouth. [address] pregabalin Yes 50mg Take 50 mg U nivers (LYRICA) 50 7-16 by mouth. ity of mg capsule 10:48: [address] HYDROcodone Yes 1{tbl} Take 1 Un lamar -acetaminop 7-16 tablet by ity of hen 7.5-325 10:48: [place] mg per Medical tablet Branch levothyroxi 2019-0 Yes 125ug Take 125 U nivers ne 125 mcg 7-16 mcg by ity of tablet 10:48: mouth. [address] terbinafine Yes 250mg Take 250 U nivers HCl 250 mg 7-16 mg by ity of tablet 10:48: mouth. [address] pregabalin Yes 50mg Take 50 mg U nivers (LYRICA) 50 7-16 by mouth. ity of mg capsule 10:48: [address] carvedilol Yes Univers 12.5 mg 7-02 ity of tablet 00:00: [address] carvedilol Yes Univers 12.5 mg 7-02 ity of tablet 00:00: [address] carvedilol Yes Univers 12.5 mg 7-02 ity of tablet 00:00: [address] SERTraline Yes Univers 50 mg 7- ity of tablet 00:00: [address] SERTraline Yes Univers 50 mg 7-01 ity of tablet 00:00: [address] SERTraline Yes Univers 50 mg 7-01 ity of tablet 00:00: [address] ALPRAZolam Yes TK 1 T PO Un lamar 1 mg tablet 6-21 BID ity of 00:00: [address] ALPRAZolam Yes TK 1 T PO Un lamar 1 mg tablet 6-21 BID ity of 00:00: [address] ALPRAZolam Yes TK 1 T PO Un lamar 1 mg tablet 6-21 BID ity of 00:00: [address] carvedilol Yes 12.5mg Q.5D Take 12.5 [...] a capsule 22 needed for l sleep. carvedilol 2019-0 Yes 12.5mg Q.5D Take 12.5 [...] Hospit a 22 times a l day. dextroamphe 2019-0 Yes 30mg Q.5D Take 30 mg Methodi tamine-amph 1-[address] etamine 12:02: (two) Hospita (ADDERALL) 22 times a l 30 mg day. tablet levothyroxi 2019-0 Yes 125ug QD Take 125 [...] Hospita 250 mg 22 daily. l tablet terbinafine 2019-0 Yes 250mg QD Take 250 M ethodi HCl 1-[address] (LamiSIL) 12:02: mouth Hospita 250 mg 22 daily. l tablet carvedilol 0 Yes 12.5mg Q.5D Take 12.5 Methodi (COREG) [...] thodi -acetaminop 1-[address] hen (NORME) 12:02: mouth Hospi ta 7.5-325 mg 22 [...] thodi -acetaminop 1-[address] hen (NORME) 12:02: mouth Hospi ta 7.5-325 mg 22 every 8 l per tablet (eight) hours as needed for moderate pain. ranitidine 2019-0 Yes 150mg Q.5D Take 150 Me thodi (ZANTAC) 1-[address] 150 MG 12:02: mouth 2 Hospita tablet 22 (two) l times a day. pregabalin 2018- Yes 50mg Q.5D Take 50 mg M [...] mg 22 daily. l tablet ibuprofen Yes [id number] 600mg Take 1 Tab Univers (MOTRIN) 2-07 by mouth ity of 600 mg 00:00: every 6 [place] tablet 00 (six) Medical hours as Branch needed for Pain. ibuprofen Yes [id number] 600mg Take 1 Tab Univers (MOTRIN) 2-07 by mouth ity of 600 mg 00:00: every 6 [place] tablet 00 (six) Medical hours as Branch needed for Pain. ibuprofen Yes [id number] 600mg Take 1 Tab Univers (MOTRIN) 2-07 by mouth ity of 600 mg 00:00: every 6 [place] tablet 00 (six) Medical hours as Branch needed for Pain. Vital Signs Vital Name Observation Time Observation Value Comments Source Systolic blood 2022-03-30 03:00:00 130 mm[Hg] Univer sity [facility] Diastolic blood 2022-03-30 03:00:00 78 mm[Hg] [facility] Heart rate 2022-03-30 03:00:00 73 /min [facility] [place] [facility] Respiratory rate 2022-03-30 03:00:00 18 /min [facility] Oxygen saturation in 2022-03-30 03:00:00 98 /min [facility] Arterial blood [facility] Pulse oximetry Branch Body temperature 2022-03-29 23:34:[address] [facility] Body height 2022-03-29 23:34:00 157.5 cm [facility] Body weight 2022-03-29 23:34:00 81.647 kg [facility] BMI 2022-03-29 23:34:00 32.92 kg/m2 [facility] Body weight 2022-01-18 19:15:00 81.647 kg [facility] BMI 2022-01-18 19:15:00 32.92 kg/m2 [facility] Procedures Procedure Date / Time Performing Clinician Source Performed TROPONIN I 2022-03-30 02:15:00 [facility] (ID NOW RAPID 2022-03-30 01:30:00 Ty Zhao [facility] TESTING) [facility] URINALYSIS 2022-03-30 00:10:00 [facility]ST 2 VW 2022-03-29 23:56:46 Francy [facility] TROPONIN I 2022-03-29 23:44:00 Francy [facility] COMP. METABOLIC PANEL 2022-03-29 23:44:00 Ty Zhao [facility] ([id number]) [facility] CBC WITH DIFF 2022-03-29 23:44:00 Ty Zhao [facility] PROTHROMBIN TIME / INR 2022-03-29 23:44:00 Ty Zhao [facility] N-TERMINAL PRO-BNP 2022-03-29 23:44:00 Ty Zhao [facility] NOTICE OF PRIVACY 2022-03-29 23:29:25 Doctor Unassigned, No [facility] PRACTICES Name Medical Branch CONSENT/REFUSAL FOR 2022-03-29 23:27:10 Doctor Unassigned, No [facility] [place] DIAGNOSIS AND TREATMENT Name Medical Branch Plan of Care Planned Activity Planned Date Details Comments Source Future Scheduled 2022-06-27 COVID-19 VACCINE (#1) [facility] Test 14:31:57 [code = COVID-19 VACCINE (#1)] Future Scheduled 2022-06-27 Screening for [facility] Test 14:31:57 malignant neoplasm of cervix (procedure) [code = 184073036] Future Scheduled 2022-06-27 BREAST CANCER [facility] Test 14:31:57 SCREENING [code = BREAST CANCER SCREENING] Future Scheduled 2022-06-27 COLONOSCOPY SCREENING [facility] Test 14:31:57 [code = COLONOSCOPY SCREENING] Future Scheduled 2022-06-27 SHINGLES VACCINES (1 Met [facility] Test 14:31:57 of 2) [code = SHINGLES VACCINES (1 of 2)] Future Scheduled 2022-06-27 INFLUENZA VACCINE Method [facility] Test 14:31:57 [code = INFLUENZA VACCINE] Future Scheduled 2022-05-09 HEPATITIS B VACCINES Met [facility] Test 16:24:05 (1 of 3 - 3-dose series) [code = HEPATITIS B VACCINES (1 of 3 - 3-dose series)] Future Scheduled 2022-05-09 COVID-19 VACCINE (#1) [facility] Test 16:24:05 [code = COVID-19 VACCINE (#1)] Future Scheduled 2022-05-09 Screening for [facility] Test 16:24:05 malignant neoplasm of cervix (procedure) [code = 551855964] Future Scheduled 2022-05-09 BREAST CANCER [facility] Test 16:24:05 SCREENING [code = BREAST CANCER SCREENING] Future Scheduled 2022-05-09 COLONOSCOPY SCREENING [facility] Test 16:24:05 [code = COLONOSCOPY SCREENING] Future Scheduled 2022-05-09 SHINGLES VACCINES (1 Met [facility] Test 16:24:05 of 2) [code = SHINGLES VACCINES (1 of 2)] Future Scheduled 2022-05-09 INFLUENZA VACCINE Method [facility] Test 16:24:05 [code = INFLUENZA VACCINE] Future Scheduled 2022-04-12 HEPATITIS B VACCINES Met [facility] Test 19:40:30 (1 of 3 - 3-dose series) [code = HEPATITIS B VACCINES (1 of 3 - 3-dose series)] Future Scheduled 2022-04-12 COVID-19 VACCINE (#1) [facility] Test 19:40:30 [code = COVID-19 VACCINE (#1)] Future Scheduled 2022-04-12 Screening for [facility] Test 19:40:30 malignant neoplasm of cervix (procedure) [code = 557125351] Future Scheduled 2022-04-12 BREAST CANCER [facility] Test 19:40:30 SCREENING [code = BREAST CANCER SCREENING] Future Scheduled 2022-04-12 COLONOSCOPY SCREENING [facility] Test 19:40:30 [code = COLONOSCOPY SCREENING] Future Scheduled 2022-04-12 SHINGLES VACCINES (1 Met [facility] Test 19:40:30 of 2) [code = SHINGLES VACCINES (1 of 2)] Future Scheduled 2022-04-12 INFLUENZA VACCINE Method [facility] Test 19:40:30 [code = INFLUENZA VACCINE] Future Scheduled 2022-03-07 BREAST CANCER [facility] Test 02:49:44 SCREENING [code = BREAST CANCER SCREENING] Future Scheduled 2022-03-07 COLONOSCOPY SCREENING [facility] Test 02:49:44 [code = COLONOSCOPY SCREENING] Future Scheduled 2022-03-07 SHINGLES VACCINES (1 Met [facility] Test 02:49:44 of 2) [code = SHINGLES VACCINES (1 of 2)] Future Scheduled 2022-03-07 INFLUENZA VACCINE Method [facility] Test 02:49:44 [code = INFLUENZA VACCINE] Future Scheduled 2022-03-07 HEPATITIS B VACCINES Met [facility] Test 02:49:44 (1 of 3 - 3-dose series) [code = HEPATITIS B VACCINES (1 of 3 - 3-dose series)] Future Scheduled 2022-03-07 COVID-19 VACCINE (#1) [facility] Test 02:49:44 [code = COVID-19 VACCINE (#1)] Future Scheduled 2022-03-07 Screening for [facility] Test 02:49:44 malignant neoplasm of cervix (procedure) [code = 850977503] Future Scheduled 2022-03-07 BREAST CANCER [facility] Test 02:49:44 SCREENING [code = BREAST CANCER SCREENING] Future Scheduled 2022-03-07 COLONOSCOPY SCREENING [facility] Test 02:49:44 [code = COLONOSCOPY SCREENING] Future Scheduled 2022-03-07 SHINGLES VACCINES (1 Met [facility] Test 02:49:44 of 2) [code = SHINGLES VACCINES (1 of 2)] Future Scheduled 2022-03-07 INFLUENZA VACCINE Method ist Hospital Test 02:49:44 [code = INFLUENZA VACCINE] Future Scheduled 2022-03-07 HEPATITIS B VACCINES Met [facility] Test 02:49:44 (1 of 3 - 3-dose series) [code = HEPATITIS B VACCINES (1 of 3 - 3-dose series)] Future Scheduled 2022-03-07 COVID-19 VACCINE (#1) Me [facility] Test 02:49:44 [code = COVID-19 VACCINE (#1)] Future Scheduled 2022-03-07 [facility] Test 02:49:44 malignant neoplasm of cervix (procedure) [code = 039370682] Future Scheduled COVID-19 VACCINE (1) Met [facility] Test [code = COVID-19 VACCINE (1)] Future Scheduled Hepatitis C screening [facility] Test (procedure) [code = 778705161] Future Scheduled [facility] Test malignant neoplasm of cervix (procedure) [code = 933990546] Future Scheduled [facility] Test SCREENING [code = BREAST CANCER SCREENING] Future Scheduled COLONOSCOPY SCREENING [facility] Test [code = COLONOSCOPY SCREENING] Future Scheduled SHINGLES VACCINES Method ist Hospital Test (#1) [code = SHINGLES VACCINES (#1)] Future Scheduled INFLUENZA VACCINE Method ist Hospital Test [code = INFLUENZA VACCINE] Encounters Start End Encounter Admission Attending Care Care Encounter Source Date/Time Date/Time Type Type Clinicians Facility Department ID 2022-03-29 2022-03-29 [id number] Univers 18:29:00 22:25:[address] [facility] 2022-03-29 2022-03-29 [facility] [id number] Univers 18:29:00 22:25:00 Ty ADRIAN [id number] i ty [facility] 4.2.7.2.686 [facility] [id number] [place] [address] Branch 2022-02-21 2022-02-21 Telephone Raysa Bah [id number] Univers 00:00:00 00:00:00 R Y 350.1.13.10 it y of [facility] 4.2.7.2.686 [facility] [id number] [facility]. [address] 2022-01-18 2022-01-18 Office Raysa Bah [address]114 [id number] Univers 13:45:00 15:54:35 Visit R Y 350.1.13.10 it y of [facility] 4.2.7.2.686 [address] [address] [id number] [facility]. [address] 2022-01-18 2022-01-18 Outpatient R RAYSA BAH [facility] [id number] Univers 13:45:00 [facility]54[facility] 2022-01-18 Outpatient R NIURKA [facility] [id number] Univers 13:45:00 13:45:00 [facility] 2019-02-01 2019-02-01 Telephone [facility] [id number] 00:00:00 00:00:00 Otto Adrian 350.1.13.10 [place] 4.2.7.2.686 Professio [id number] [address] 2019-02-01 2019-02-01 Telephone [facility] [id number] Univers 00:00:00 00:00:00 Otto Adrian 350.1.13.10 i [place] 4[place].2.686 [place] [phone] [place] dical [address] Results Test Description Test Time Test Comments Results Result Comments Source TROPONIN I 2022-03-30 02:59:18 Test Item Value Reference Range Interpretation Comme nts TROPONIN I (test code = See_Comment [Au tomated message] The 1420957711) system which ge nerated this result tra [...] biotin. Lab Interpretation Normal (test code = 14029-2) [facility] [id number] 00:21:38 Test Item Value Reference Interpretation Comments Range TROPONIN I (test See_Comment [Automated code = 1405746321) message] The system which generated this result [...] biotin. Lab Interpretation Normal (test code = 64119-0) [facility] [id number] 00:18:40 Test Item Value Reference Range Interpretation Comments NT-proBNP (test code 146 pg/mL See_Comment H [Autom ated = 4551170416) message] The system which generated this result transmitted reference range : <=125. The reference range was not used to interpret this result as normal/abnormal . CASANDRA (test code = CASANDRA) Biotin has been reported to cause a negative bias, interpret results relative to patient's use of biotin. Lab Interpretation Abnormal (test code = 16325-1) [facility] ([id number])2022-03-30 00:09:55 Test Item Value Reference Range Interpretation Comments NA (test code = 137 mmol/L 135-145 0283002031) K (test code = 4.8 mmol/L 3.5-5 3642386089) CL (test code = 102 mmol/L 98-108 2570316457) CO2 TOTAL (test code = 31 mmol/L 23-31 1595431896) AGAP (test code = 2-16 2192537162) BUN (test code = 15 mg/dL 7-23 2975681898) GLUCOSE (test code = 90 mg/dL 70-110 9814674780) CREATININE (test code = 1.04 mg/dL 0.5-1.04 9048566427) TOTAL BILI (test code = 0.4 mg/dL 0.1-1.5 2228923955) CALCIUM (test code = 8.6 mg/dL 8.6-10.6 0607267474) T PROTEIN (test code = 6.0 g/dL 6.3-8.2 L 8414087969) ALBUMIN (test code = 4.0 g/dL 3.5-5 0360355884) ALK PHOS (test code = 63 U/L 34-122 5790724903) ALTv (test code = 21 U/L 5-35 1742-6) AST(SGOT) (test code = 21 U/L 13-40 9481608617) eGFR (test code = mL/min/1.73m2 0164360528) CASANDRA (test code = CASANDRA) Association of [...] tests). Lab Interpretation Abnormal (test code = 66954-3) [facility] / [id number] 00:03:16 Test Item Value Reference Range Interpretation [...] tions. Lab Interpretation (test Normal code = 02055-2) [facility] WITH [id number] 23:59:14 Test Item Value Reference Range Interpretation Comments WBC (test code = See_Comment [Automated 7590-2) message] The sy stem which generated this result transmitted reference range : 4.30 - 11.10 10*3/?L. The reference range was not used to interpret this result as normal/abnormal . RBC (test code = See_Comment [Automated 169-8) message] The sy stem which generated this [...] RDW-SD (test code = 45.3 fL 39-49.9 35786-7) RDW-CV (test code = 13.5 % 12-15.5 788-0) PLT (test code = See_Comment [Automated 777-3) message] The sy stem which generated this result transmitted reference range : 166 - 358 10*3/ ?L. The reference r elver was not used to interpret this result as normal/abnormal . MPV (test code = 10.5 fL 9.5-12.9 38622-9) NRBC/100 WBC (test See_Comment [Automat ed code = 5960867673) message] The system which generated this result transmitted reference range : 0.0 - 10.0 /100 WBCs. The refer ence range was not u sed to interpret th is result as normal/abnormal . NRBC x10^3 (test code See_Comment [Auto mated = 4697307755) message] The s ystem which generated this result transmitted reference range : 10*3/?L. The reference range was not used to interpret this result as normal/abnormal . GRAN MAT (NEUT) % 57.5 % (test code = 770-8) IMM GRAN % (test code 1.10 % = 6992656806) LYMPH % (test code = 31.2 % 736-9) MONO % (test code = 8.5 % 5905-5) EOS % (test code = 0.9 % 713-8) BASO % (test code = 0.8 % 706-2) GRAN MAT x10^3(ANC) 5.72 10*3/uL 1.88-7.09 (test code = 9096540014) IMM GRAN x10^3 (test 0.11 10*3/uL 0-0.06 H code = 2041923928) LYMPH x10^3 (test code 3.10 10*3/uL 1.32-3.29 = 731-0) MONO x10^3 (test code 0.85 10*3/uL 0.33-0.92 = 742-7) EOS x10^3 (test code = 0.09 10*3/uL 0.03-0.39 711-2) BASO x10^3 (test code 0.08 10*3/uL 0.01-0.07 H = 704-7) Lab Interpretation Abnormal (test code = 02286-9) [facility]"
[2022-08-29] MEDS ORDERED: ASPIRIN 81 MG CHEWABLE TABLET ONE (10:57)
[2022-08-29 11:08] LABS: Absolute Lymphocytes (CBC) 2.1 K/uL (0.7-4.9); Hematocrit 42.4 % (36.0-45.0); Lymphocytes % 31.9 % (15.3-44.8); MCV 90.4 fL (80-100); MPV 8.4 fL (7.6-11.3); RBC Red Blood Cell Count 4.69 M/uL (3.86-4.86)
[2022-08-29 11:15] LABS: Protime INR 0.93
[2022-08-29 11:43] LABS: Albumin 3.7 g/dL (3.4-5.0); Bilirubin Direct 0.1 mg/dL (0-0.2); Bilirubin Total 0.4 mg/dL (0.2-1.0); Magnesium 1.9 mg/dL (1.6-2.4); Potassium 4.1 mmol/L (3.5-5.1); Thyroid Stimulating Hormone 3.41 uIU/mL (0.358-3.740); Troponin High Sensitivity 3.3 pg/mL (<58.9)
--- NOTE | 2022-08-29 12:26 | RAD REPORT ---
EXAM DESCRIPTION: Marylu Single View08/29/2022 11:28 am CLINICAL HISTORY: Chest pain COMPARISON: 2021 FINDINGS: The lungs appear clear of acute infiltrate. The heart is normal size IMPRESSION: No acute abnormalities displayed
--- NOTE | 2022-08-29 12:26 | RAD REPORT ---
EXAM DESCRIPTION: CT - Chest For Pe Angio - 08/29/2022 12:06 pm CLINICAL HISTORY: Chest pain COMPARISON: 2021 TECHNIQUE: Dynamically enhanced axial 3 mm thick images of the chest were obtained during administra tion of 100 mL Isovue 370 IV contrast. Coronal and oblique reconstruction images were generated and r eviewed. Exam utilizes a protocol for optimal evaluation of pulmonary arterial tree. Maximum intensity projections 3D imaging was utilized All CT scans are performed using dose optimization technique as appropriate and may include automated exposure control or mA/KV adjustment according to patient size. FINDINGS: A pulmonary embolus is not seen. A thoracic aortic aneurysm is not noted. A pleural effusion is not seen. A pericardial effusion is not seen. A lung consolidation is not present. Tiny subpleural nodules that significant change IMPRESSION: Negative for a pulmonary embolism.
[2022-08-29] MEDS ORDERED: LORAZEPAM 1 MG TABLET ONE (12:37)
--- NOTE | 2022-08-29 13:07 | EDPHYS ---
Physician Documentation [facility] Name: Ronnell Rubalcava Age: 62 yrs Sex: Female : 1960 Arrival Date: 08/29/2022 Time: 10:41 Bed 8 Private MD: ED Physician Gilberto Cervantes HPI: 08/29 10:48 This 62 yrs old Female presents to ER via Ambulatory with complaints of abnormal ekg, jh7 Chest Tightness. 10:48 Onset: The symptoms/episode began/occurred this morning. Associated signs and symptoms: jh7 Pertinent positives: chest pain, Anxiety, Pertinent negatives: abdominal pain, fever, headache, shortness of breath, vomiting, wheezing. 62-year-old female presents with chest tightness since this morning. Reports that she was at Dr. Santo's office getting evaluated for an Adderall refill. She was sent to the ER due to the java development manager indicating 30 seconds of A-fib and 30 seconds of trigeminy. Patient has a history of fibromyalgia and thyroid disease. Reports that occasionally she develops bilateral below the knee swelling when she is active.. Historical: - Allergies: 10:49 Morphine; ll1 10:49 Tegretol; ll1 - PMHx: 10:49 Back pain; Fibromyalgia; graves disease; hyperthyroidism; Hypothyroidism; Hypertension; ll1 - Immunization history:: Adult Immunizations up to date. - Social history:: Smoking status: . ROS: 10:48 Constitutional: Negative for fever, chills, and weight loss, Eyes: Negative for injury, jh7 pain, redness, and discharge, Neck: Negative for injury, pain, and swelling, Respiratory: Negative for shortness of breath, cough, wheezing, and pleuritic chest pain, Abdomen/GI: Negative for abdominal pain, nausea, vomiting, diarrhea, and constipation, Back: Negative for injury and pain, MS/Extremity: Negative for injury and deformity, Skin: Negative for injury, rash, and discoloration, Neuro: Negative for headache, weakness, numbness, tingling, and seizure. 10:48 Cardiovascular: Positive for chest pain, Negative for orthopnea, palpitations. 10:48 Psych: Positive for anxiety. 10:48 All other systems are negative. Exam: 10:48 Head/Face: Normocephalic, atraumatic. Eyes: Pupils equal round and reactive to light, jh7 extra-ocular motions intact. Lids and lashes normal. Conjunctiva and sclera are non-icteric and not injected. Cornea within normal limits. Periorbital areas with no swelling, redness, or edema. Neck: Trachea midline, no thyromegaly or masses palpated, and no cervical lymphadenopathy. Supple, full range of motion without nuchal rigidity, or vertebral point tenderness. No Meningismus. Cardiovascular: Regular rate and rhythm with a normal S1 and S2. No gallops, murmurs, or rubs. Normal PMI, no JVD. No pulse deficits. Respiratory: Lungs have equal breath sounds bilaterally, clear to auscultation and percussion. No rales, rhonchi or wheezes noted. No increased work of breathing, no retractions or nasal flaring. Abdomen/GI: Soft, non-tender, with normal bowel sounds. No distension or tympany. No guarding or rebound. No evidence of tenderness throughout. Back: No spinal tenderness. No costovertebral tenderness. Full range of motion. Skin: Warm, dry with normal turgor. Normal color with no rashes, no lesions, and no evidence of cellulitis. MS/ Extremity: Pulses equal, no cyanosis. Neurovascular intact. Full, normal range of motion. Neuro: Awake and alert, GCS 15, oriented to person, place, time, and situation. Motor strength 5/5 in all extremities. Sensory grossly intact. Normal gait. 10:48 Constitutional: The patient appears alert, awake, anxious. Vital Signs: 10:50 BP 147 / 90; Pulse 86; Resp 20; Temp 98.3; Pulse Ox 96% ; ll1 11:59 BP 130 / 78; Pulse 76; Resp 16; ll1 13:13 BP 131 / 82; Pulse 82; Resp 20; Pulse Ox 96% on R/A; ll1 MDM: 10:42 Patient medically screened. [facility] 13:20 Differential diagnosis: pneumonia Acute ND, anxiety attack. Data reviewed: vital signs, [facility] nurses notes, lab test result(s), EKG, radiologic studies, CT scan, plain films. I considered the following discharge prescriptions or medication management in the emergency department Medications were administered in the Emergency Department. See MAR. Care significantly affected by the following chronic conditions: Fibromyalgia. Counseling: I had a detailed discussion with the patient and/or guardian regarding: the historical points, exam findings, and any diagnostic results supporting the discharge/admit diagnosis, to return to the emergency department if symptoms worsen or persist or if there are any questions or concerns that arise at home. Response to treatment: the patient's symptoms have resolved after treatment, Denies any chest tightness or anxiety. Special discussion: Patient states that the chest tightness began after they told her she had an abnormal heart rhythm. She states that they did not put EKG leads on her chest, but that they had wires on her head for her Adderall refill. Informed her that her EKG was normal as well as her labs and imaging. Patient had no complaints at discharge and requested to go home to feed her dogs.. 13:20 Scoring Tools HEART Score: History: Age: Total Score = [address]. [facility] 08/29 10:50 Order name: Basic Metabolic Panel [facility] 08/29 10:50 Order name: CBC with Diff [facility] 08/29 10:50 Order name: D-Dimer [facility] 08/29 10:50 Order name: LFT's [facility] 08/29 10:50 Order name: Magnesium [facility] 08/29 10:50 Order name: NT PRO-BNP [facility] 08/29 10:50 Order name: PT-INR [facility] 08/29 10:50 Order name: Troponin HS [facility] 08/29 10:51 Order name: TSH [facility] 08/29 11:13 Order name: CBC with Automated Diff; Complete Time: 11:18 [facility] 08/29 11:15 Order name: Protime (+INR); Complete Time: 11:20 [facility] 08/29 11:18 Order name: D-Dimer; Complete Time: 11:20 [facility] 08/29 11:43 Order name: Basic Metabolic Panel; Complete Time: 11:56 [facility] 08/29 11:43 Order name: Liver (Hepatic) Function; Complete Time: 11:56 [facility] 08/29 10:50 Order name: XRAY Chest (1 view) [facility] 08/29 10:50 Order name: EKG; Complete Time: 10:[address] [facility] 08/29 10:50 Order name: Cardiac monitoring; Complete Time: 11:[address] [facility] 08/29 10:50 Order name: EKG - Nurse/Tech; Complete Time: 11: [facility] 08/29 10:50 Order name: IV Saline Lock; Complete Time: 11:[address] [facility] 08/29 10:50 Order name: Labs collected and sent; Complete Time: 11:01 7 08/29 10:50 Order name: O2 Per Protocol; Complete Time: 10:51 7 08/29 11:32 Order name: CT Chest For PE Angio [facility] 08/29 11:43 Order name: Troponin High Sensitivity; Complete Time: 11:56 EDMS 08/29 11:43 Order name: NT PRO-BNP; Complete Time: 11:56 EDMS 08/29 11:43 Order name: Magnesium; Complete Time: 11:56 EDMS 08/29 11:43 Order name: Thyroid Stimulating Hormone; Complete Time: 11:56 EDMS 08/29 12:27 Order name: CT; Complete Time: 12:30 EDMS 08/29 12:27 Order name: RAD; Complete Time: 12:30 EDMS 08/29 10:50 Order name: O2 Sat Monitoring; Complete Time: 10:51 7 EC:48 Rate is 78 beats/min. Rhythm is regular. QRS [place] is Normal. [place] interval is normal at [facility] 130 msec. QRS interval is normal at 76 msec. QT interval is normal at 368 msec. No Q waves. T waves are Normal. No ST changes noted. Clinical impression: Sinus rhythm with sinus arrhythmia. Administered Medications: 11:01 Drug: Aspirin Chewable Tablet 324 mg Route: PO; ll1 11:58 Follow up: Response: No adverse reaction; Pain is unchanged, physician notified; RASS: ll1 Alert and Calm (0) 12:39 Drug: Ativan (LORazepam) 1 mg Route: PO; ll1 13:14 Follow up: Response: No adverse reaction; Anxiety decreased; RASS: Alert and Calm (0) ll1 Disposition: 13:55 Co-signature as Attending Physician, Gilberto WEBER was immediately available on-site ms3 in the Emergency Department for consultation in the care of the patient. Disposition Summary: 08/29/22 13:07 Discharge Ordered Location: Home [facility] Problem: new [facility] Symptoms: are resolved [facility] Condition: Stable [facility] Diagnosis - Chest pain, unspecified [facility] Followup: [facility] - With: Private Physician - When: 2 - 3 days - Reason: Recheck today's complaints Discharge Instructions: - Discharge Summary Sheet [facility] - Nonspecific Chest Pain, Adult [facility] - Electrocardiogram [facility] Forms: - Medication Reconciliation Form [facility] - Thank You Letter [facility] Signatures: Dispatcher [employer] Sophie Schmidt, RN RN ll1 Gilberto Cervantes DO DO ms3 Lesvia Steve, TRANSPORTATION LOGISTICS [employer] TRANSPORTATION [employer] [facility] Corrections: (The following items were deleted from the chart) 13:58 13:20 Scoring Tools HEART Score: Age: Total Score = 1 [place] [id number]
--- NOTE | 2022-08-29 13:07 | ER ---
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 Slight ll1 chest tightness. Stomach feels full. Coronavirus screen: Client denies travel out of the [place] in the last 14 days. Ebola Screen: Patient denies travel to an Ebola-affected area in the 21 days before illness onset. Initial Sepsis Screen: Does the patient meet any 2 criteria? No. Patient's initial sepsis screen is negative. Does the patient have a suspected source of infection? No. Patient's initial sepsis screen is negative. Risk Assessment: Do you want to hurt yourself or someone else? Patient reports no desire to harm self or others. Onset of symptoms was August 29, 2022. 10:47 Method Of Arrival: Ambulatory ll1 10:47 Acuity: BRYANT 3 ll1 Triage Assessment: 10:49 General: Appears uncomfortable, Behavior is cooperative, appropriate for age, anxious. ll1 Pain: Complains of pain in chest Quality of pain is described as pressure. Cardiovascular: Reports chest pain. GI: Parent/caregiver reports the patient having bloating. Historical: - Allergies: 10:49 Morphine; ll1 10:49 Tegretol; ll1 - PMHx: 10:49 Back pain; Fibromyalgia; graves disease; hyperthyroidism; Hypothyroidism; Hypertension; ll1 - Immunization history:: Adult Immunizations up to date. - Social history:: Smoking status: . Screenin:58 [facility] ED Fall Risk Assessment (Adult) Score/Fall Risk Level 0 - 2 = Low Risk ll1 Oriented to surroundings, Maintained a safe environment, Educated pt \T\ family on fall prevention, incl call for assistance when getting out of bed, Hourly rounding (assess needs \T\ fall precautionary measures) done. Abuse screen: Denies threats or abuse. Nutritional screening: No deficits noted. Tuberculosis screening: No symptoms or risk factors identified. Assessment: 11:05 Reassessment: No changes from previously documented assessment. Patient and/or family ll1 updated on plan of care and expected duration. Pain level reassessed. Patient is alert, oriented x 3, equal unlabored respirations, skin warm/dry/pink. pillow, blanket given. Appears more comfortable now. 11:57 Reassessment: No changes from previously documented assessment. Patient and/or family ll1 updated on plan of care and expected duration. Pain level reassessed. Patient is alert, oriented x 3, equal unlabored respirations, skin warm/dry/pink. 12:39 Reassessment: No changes from previously documented assessment. Patient and/or family ll1 updated on plan of care and expected duration. Pain level reassessed. Patient is alert, oriented x 3, equal unlabored respirations, skin warm/dry/pink. 13:00 Reassessment: No changes from previously documented assessment. Anu Steve at . ll1 13:13 Pain: Pain does not radiate. Pain began 2-3 days ago. ll1 Vital Signs: 10:50 BP 147 / 90; Pulse 86; Resp 20; Temp 98.3; Pulse Ox 96% ; ll1 11:59 BP 130 / 78; Pulse 76; Resp 16; ll1 13:13 BP 131 / 82; Pulse 82; Resp 20; Pulse Ox 96% on R/A; ll1 ED Course: 10:41 Patient arrived in ED. as 10:42 Lesvia Steve FNP is [facility] 10:42 Gilberto Cervantes DO is Attending Physician. [facility] 10:43 Sophie Cornejo, RN is Primary Nurse. ll1 10:43 Arm band placed on Patient placed in an exam room, on a stretcher. ll1 10:49 Triage completed. ll1 11:01 Inserted saline lock: 22 gauge in left antecubital area, using aseptic technique. Blood ll1 collected. 11:19 Notified Nurse Practitioner and/or Physician Home Planning Consultant Salesperson of a critical lab result(s), ll1 Ddimer 643. 11:58 Patient has correct armband on for positive identification. Bed in low position. Call ll1 light in reach. Side rails up X 1. Client placed on continuous cardiac and pulse oximetry monitoring. NIBP monitoring applied. slicing machine operator/tender on. 11:58 No provider procedures requiring assistance completed. Patient maintains SpO2 ll1 saturation greater than 95% on room air. 13:13 IV discontinued, intact, bleeding controlled, No redness/swelling at site. Pressure 1 dressing applied. Administered Medications: 11:01 Drug: Aspirin Chewable Tablet 324 mg Route: PO; 1 11:58 Follow up: Response: No adverse reaction; Pain is unchanged, physician notified; RASS: ll1 Alert and Calm (0) 12:39 Drug: Ativan (LORazepam) 1 mg Route: PO; ll1 13:14 Follow up: Response: No adverse reaction; Anxiety decreased; RASS: Alert and Calm (0) 1 Medication: 11:58 VIS not applicable for this client. 1 Outcome: 13:07 Discharge ordered by . ese 13:13 Discharged to home ambulatory. 1 13:13 Condition: stable 13:13 Discharge instructions given to patient, Instructed on discharge instructions, follow up and referral plans. Demonstrated understanding of instructions, follow-up care. 13:14 Patient left the ED. 1 Signatures: Emmanuelle Oates Lynsay, RN RN 1 Lesvia Steve FNP DESIREE [facility]
[2022-08-29 13:28] VITALS: TEMP 98.3; O2SAT 96
[2022-08-29 13:40] VITALS: BP 131/82
--- NOTE | 2022-08-30 13:22 | EKG ---
Test Date: 2022-08-29 Test Time: 10:54:33 Insurance Policy Clerk: JOSE MEASUREMENT RESULTS: Intervals: Rate: 78 [place]: 130 QRSD: 76 QT: 368 QTc: 419 Brookesmith: P: 56 [place]: 130 QRS: 75 T: 72 INTERPRETIVE STATEMENTS: Sinus rhythm with marked sinus arrhythmia Otherwise normal ECG Compared to ECG 05/14/2022 18:51:41 Atrial premature complex(es) no longer present Electronically Signed On 08-30-22 13:19:03 [employer]ACK [employer] COATING EQUIPMENT TENDER by Usman Polk
== END 2022-08-29 13:14 | disposition home or self-care (01) ==
LOC: ER 10:40
DX: R07.89 Other chest pain (principal); I10 Essential (primary) hypertension; Z88.5 Allergy status to narcotic agent; Z88.8 Allergy status to other drugs, medicaments and biological substances
CPT/HCPCS: 93005; 85025; 80048; 36415; 83735; 85610; 85379; 80076; 84443; 84484; 83880; 71275; 71045; 99284; Q9967

== ENCOUNTER 2023-08-27 21:22 | Observation (INO) | payer OTHER ==
[2023-08-27 22:20] LABS: Specific Gravity > 1.030 (1.005-1.030); Urine Bacteria None Seen /HPF (<20); Urine Bilirubin NEGATIVE (Negative); Urine Blood Negative (Negative); Urine Clarity Extremely Turbid (Clear); Urine Color Yellow (Yellow); Urine Glucose NEGATIVE (Negative); Urine Mucus 1+ /HPF (None Seen); Urine Protein 1+ (Negative); Urine RBC None Seen /HPF (None Seen); Urine Urobilinogen 1+ (Normal); Urine pH 5.5 (5.0-7.0)
[2023-08-27 22:21] LABS: Absolute Eosinophils 0.1 K/uL (0-0.5); Absolute Lymphocytes (CBC) 2.2 K/uL (0.7-4.9); Absolute Monocytes 0.7 K/uL (0.1-1.3); Absolute Neutrophil 4.1 K/uL (1.8-8.0); Basophils % 0.6 % (0-1.3); Eosinophils % 0.8 % (0-4.4); Hematocrit 39.8 % (36.0-45.0); Hemoglobin 13.8 g/dL (12.0-15.0); Lymphocytes % 31.2 % (15.3-44.8); MCH 30.1 pg (27.0-35.0); MCHC 34.7 g/dL (32.0-36.0); MCV 86.6 fL (80-100); MPV 8.5 fL (7.6-11.3); Monocytes % 9.9 % (3.3-12.3); Neutrophils % 57.5 % (41.7-73.7); Nucleated Red Blood Cells % 0.1 % (0-0); Platelets 247 thou/uL (152-406); RBC Red Blood Cell Count 4.59 M/uL (3.86-4.86); Red Cell Distribution Width 15.4 % (12.1-15.2)
[2023-08-27 22:23] LABS: PT Prothrombin Time 12.2 SECONDS (9.5-12.5); Protime INR 1.11
[2023-08-27] MEDS ORDERED: ASPIRIN 81 MG CHEWABLE TABLET ONE (22:25)
[2023-08-27] MEDS ORDERED: LORazepam 2 MG/ML VIAL ONE (22:25)
[2023-08-27] MEDS ORDERED: NA CHLORIDE 0.9% 1,000 ML ONE (22:25)
[2023-08-27 22:41] LABS: Albumin 3.8 g/dL (3.4-5.0); Albumin/Globulin Ratio 1.1 (1.1-1.8); Anion Gap 11.3 mEq/L (5.0-15.0); Bilirubin Direct 0.2 mg/dL (0-0.2); Bilirubin Indirect, Calculated 0.5 mg/dL (0.2-0.8); Bilirubin Total 0.7 mg/dL (0.2-1.0); Globulin 3.4 g/dL (2.3-3.5); Magnesium 1.3 mg/dL (1.6-2.4); Potassium 3.3 mEq/L (3.5-5.1); Protein, Total 7.2 g/dL (6.4-8.2); Troponin High Sensitivity 25.7 pg/mL (<58.9)
--- NOTE | 2023-08-27 22:41 | RAD REPORT ---
EXAM DESCRIPTION: RADChest Single View08/27/2023 10:13 pm CLINICAL HISTORY: CHEST PAIN COMPARISON: Chest Single View dated 08/29/2022; Chest Single View dated 05/14/2022; Chest Single View dated 04/12/2022; Chest Single View dated 03/23/2022 TECHNIQUE: Portable AP view of the chest. FINDINGS: The lungs are clear. No pneumothorax or effusion. The cardiomediastinal contours are unre markable. IMPRESSION: No acute cardiopulmonary process.
[2023-08-27 22:43] LABS: SARS-CoV-2 Antigen Rapid Res Negative (Negative)
[2023-08-27] MEDS ORDERED: CEFTRIAXONE 1000 MG/VIAL ONE (23:06)
[2023-08-27] MEDS ORDERED: ONDANSETRON 4 MG/2 ML VIAL ONE (23:26)
[2023-08-27] MEDS ORDERED: POTASSIUM 25 MEQ EFFERV TAB ONE (23:26)
[2023-08-27] MEDS ORDERED: FENTANYL CITR 100 MCG/2 ML ONE (23:27)
[2023-08-27] MEDS ORDERED: Magnesium Sulfate 2gm IVPB 2 G/50 ML BAG IV ONE (23:27)
--- NOTE | 2023-08-27 23:37 | EDPHYS ---
Physician Documentation [facility] Name: Ronnell Rubalcava Age: 63 yrs Sex: Female : 1960 Arrival Date: 08/27/2023 Time: 21:22 Bed 15 Private MD: ED Physician Jose Ramon Kent HPI: 08/27 22:15 This 63 yrs old Female presents to ER via Ambulatory with complaints of Chest nikky Pain, Back Pain, Trimmers. 22:15 The patient or guardian reports chest pain that is located primarily in the anterior nikky chest wall, bilaterally. Onset: today. The pain does not radiate. Associated signs and symptoms: Pertinent positives: lightheadedness, shortness of breath. The chest pain is described as a pressure. Modifying factors: The symptoms are alleviated by nothing. the symptoms are aggravated by nothing. Severity of pain: At its worst the pain was moderate in the emergency department the pain has improved mildly. The patient has experienced similar episodes in the past, several times. Historical: - Allergies: 21:42 Morphine; rv 21:42 Tegretol; rv - PMHx: 21:42 Back pain; Fibromyalgia; graves disease; Hypertension; hyperthyroidism; Hypothyroidism; rv Chronic obstructive lung disease; - PSHx: 21:42 back sx (Hypothyroidism); rv - Immunization history:: Adult Immunizations up to date. - Social history:: Smoking status: Patient reports the use of cigarette tobacco products, smokes one-half pack cigarettes per day. - Family history:: not pertinent. ROS: 22:15 Constitutional: Negative for fever, chills, and weight loss, Eyes: Negative for injury, nikky pain, redness, and discharge, ENT: Negative for injury, pain, and discharge, Neck: Negative for injury, pain, and swelling, Respiratory: Negative for shortness of breath, cough, wheezing, and pleuritic chest pain, Abdomen/GI: Negative for abdominal pain, nausea, vomiting, diarrhea, and constipation, Back: Negative for injury and pain, : Negative for injury, bleeding, discharge, and swelling, MS/Extremity: Negative for injury and deformity, Skin: Negative for injury, rash, and discoloration, Neuro: Negative for headache, weakness, numbness, tingling, and seizure, Psych: Negative for depression, anxiety, suicide ideation, homicidal ideation, and hallucinations, Allergy/Immunology: Negative for hives, rash, and allergies, Endocrine: Negative for neck swelling, polydipsia, polyuria, polyphagia, and marked weight changes, Hematologic/Lymphatic: Negative for swollen nodes, abnormal bleeding, and unusual bruising, 22:15 Cardiovascular: Positive for chest pain, of the chest, Exam: 22:15 Constitutional: This is a well developed, well nourished patient who is awake, alert, nikky and in no acute distress. Head/Face: Normocephalic, atraumatic. Eyes: Pupils equal round and reactive to light, extra-ocular motions intact. Lids and lashes normal. Conjunctiva and sclera are non-icteric and not injected. Cornea within normal limits. Periorbital areas with no swelling, redness, or edema. ENT: Nares patent. No nasal discharge, no septal abnormalities noted. Tympanic membranes are normal and external auditory canals are clear. Oropharynx with no redness, swelling, or masses, exudates, or evidence of obstruction, uvula midline. Mucous membranes moist. Neck: Trachea midline, no thyromegaly or masses palpated, and no cervical lymphadenopathy. Supple, full range of motion without nuchal rigidity, or vertebral point tenderness. No Meningismus. Chest/axilla: Normal chest wall appearance and motion. Nontender with no deformity. No lesions are appreciated. Cardiovascular: Regular rate and rhythm with a normal S1 and S2. No gallops, murmurs, or rubs. Normal PMI, no JVD. No pulse deficits. Respiratory: Lungs have equal breath sounds bilaterally, clear to auscultation and percussion. No rales, rhonchi or wheezes noted. No increased work of breathing, no retractions or nasal flaring. Abdomen/GI: Soft, non-tender, with normal bowel sounds. No distension or tympany. No guarding or rebound. No evidence of tenderness throughout. Back: No spinal tenderness. No costovertebral tenderness. Full range of motion. Skin: Warm, dry with normal turgor. Normal color with no rashes, no lesions, and no evidence of cellulitis. MS/ Extremity: Pulses equal, no cyanosis. Neurovascular intact. Full, normal range of motion. Neuro: Awake and alert, GCS 15, oriented to person, place, time, and situation. Cranial nerves II-XII grossly intact. Motor strength 5/5 in all extremities. Sensory grossly intact. Cerebellar exam normal. Normal gait. Psych: Awake, alert, with orientation to person, place and time. Behavior, mood, and affect are within normal limits. 22:15 ECG was reviewed by the Attending Physician. Vital Signs: 21:40 BP 154 / 90; Pulse 87; Resp 18; Temp 98.6; Pulse Ox 96% ; rv 22:39 BP 138 / 73; Pulse 74; Resp 17; Pulse Ox 94% on R/A; tm6 23:10 Pain 9/10; tm6 23:10 Pain Scale: Adult tm6 MDM: 21:36 Patient medically screened. nikky 22:18 Differential diagnosis: abnormal EKG, acute myocardial infarction, acute pericarditis, nikky anxiety, Cholelithiasis esophagitis, gastritis, pancreatitis, pneumonia, pulmonary embolus, stable angina, thoracic aortic disection, unstable angina. HEART Score: History: Slightly Suspicious (0), ECG: Non specific repolarization disturbance / LBTB / PM (1), Age: > 45 and < 65 years (1), Risk Factors: > or = 3 Risk factors for atherosclerotic disease (2), [Hypercholesterolemia] [Hypertension] [Active Smoker] [+ Family HX] [Obesity] Troponin: < or = 1 x Normal Limit (0). The patient was given aspirin in the Emergency Department. Data reviewed: vital signs, nurses notes, lab test result(s), EKG, radiologic studies, plain films. Consideration of Admission/Observation Patient was admitted/placed on observation. Escalation of care including admission/observation considered. I considered the following discharge prescriptions or medication management in the emergency department Medications were administered in the Emergency Department. See MAR. Test considered but Not performed: CT: ct chest pe. 08/27 21:37 Order name: Basic Metabolic Panel; Complete Time: 23:06 [facility] 08/27 21:37 Order name: CBC with Diff; Complete Time: 23:06 [facility] 08/27 21:37 Order name: LFT's; Complete Time: 23:06 [facility] 08/27 21:37 Order name: Magnesium; Complete Time: 23:06 [facility] 08/27 21:37 Order name: NT PRO-BNP; Complete Time: 23:06 [facility] 08/27 21:37 Order name: PT-INR; Complete Time: 22:34 [facility] 08/27 21:37 Order name: Troponin HS; Complete Time: 23:06 [facility] 08/27 21:37 Order name: Urinalysis w/ reflexes; Complete Time: 22:34 [facility] 08/27 21:37 Order name: Lipase; Complete Time: 23:06 [facility] 08/27 21:37 Order name: Flu [facility] 08/27 21:37 Order name: SARS RAPID; Complete Time: 23:06 [facility] 08/27 22:34 Order name: Urine Culture [facility] 08/27 23:15 Order name: Troponin High Sensitivity: 1130 pm [facility] 08/28 03:26 Order name: CBC with Automated Diff [facility] 08/28 03:32 Order name: Comprehensive Metabolic Panel [facility] 08/28 03:32 Order name: Troponin High Sensitivity [facility] 08/28 03:32 Order name: Magnesium [facility] 08/28 04:42 Order name: Troponin High Sensitivity [facility] 08/28 04:42 Order name: Lipid Profile [facility] 08/28 04:42 Order name: Thyroid Stimulating Hormone [facility] 08/27 21:37 Order name: XRAY Chest (1 view); Complete Time: 23:06 [facility] 08/27 23:14 Order name: CT Aorta for Dissection [facility] 08/27 21:37 Order name: EKG; Complete Time: 21:38 [facility] 08/27 21:37 Order name: Cardiac monitoring; Complete Time: 22:08 [facility] 08/27 21:37 Order name: EKG - Nurse/Tech; Complete Time: 21:48 [facility] 08/27 21:37 Order name: IV Saline Lock; Complete Time: 22:08 [facility] 08/27 21:37 Order name: Labs collected and sent; Complete Time: 22:08 [facility] 08/27 21:37 Order name: O2 Per Protocol; Complete Time: 22:08 [facility] 08/27 21:37 Order name: O2 Sat Monitoring; Complete Time: 22:08 [facility] EC:15 Rate is 83 beats/min. Rhythm is regular. QRS [place] is Normal. PA interval is normal. QRS nikky interval is normal. QT interval is normal. No Q waves. T waves are Normal. No ST changes noted. Clinical impression: NSR w/ Non-specific ST/T Changes and No evidence of ischemia. Interpreted by me. Reviewed by me. Administered Medications: 22:33 Drug: NS 0.9% IV 1000 ml IV at 125 ml/hr continuous Route: IV; Rate: 125 ml/hr; Site: tm6 left forearm; 22:33 Drug: Aspirin PO Chewable Tablet 162 mg PO once Route: PO; tm6 22:33 Drug: Ativan IVP 1 mg IVP once Route: IVP; Site: left forearm; tm6 23:10 Drug: Rocephin IV 1 grams IV at per protocol once; Given slow IV push per pharmacy tm6 instructions Route: IV; Rate: per protocol; Site: left forearm; 23:45 Drug: Potassium PO Effervescent Tablet 50 mEq PO once; dissolve in 4 ounces of water or tm6 juice Route: PO; 23:45 Drug: Magnesium Sulfate IVPB 2 grams IVPB once over 2 hrs Route: IVPB; Infused Over: 2 tm6 hrs; Site: right forearm; 23:45 Drug: fentaNYL (PF) IVP 50 mcg IVP once Route: IVP; Site: left forearm; tm6 23:45 Drug: Ondansetron IVP 4 mg IVP once; over 2 minutes Route: IVP; Site: left forearm; tm6 08/28 00:45 Drug: Diazepam PO 10 mg PO once Route: PO; tm6 00:45 Drug: Decadron - Dexamethasone IVP 10 mg IVP once Route: IVP; Site: left forearm; tm6 00:45 Drug: Ketorolac IVP 15 mg IVP once Route: IVP; Site: left forearm; tm6 00:46 Drug: Metoprolol PO 50 mg PO once Route: PO; tm6 Disposition Summary: 08/27/23 23:36 Hospitalization Ordered Notes: Hospitalization Status: Observation nikky Provider: Carlin Helton nikky Condition: Fair nikky Problem: new nikky Symptoms: have improved nikky Bed/Room Type: Standard nikky Location: Telemetry/MedSurg (observation)(08/28/23 15:37) em1 Room Assignment: 228(08/28/23 15:37) em1 Diagnosis - Low back pain nikky - Muscle spasm of back nikky - Essential (primary) hypertension nikky - Angina pectoris, unspecified nikky - Hypokalemia nikky - Hypomagnesemia nikky Forms: - Medication Reconciliation Form nikky - SBAR form nikky - Leadership Thank You Letter nikky Signatures: Dispatcher [employer] EDJose Ramon Sousa MD MD cha Martinez, Eric em1 Antonio Castaneda RN RN Galina Rogel rv1 Joya June RN RN tm6 Corrections: (The following items were deleted from the chart) 00:30 08/27 23:36 Telemetry/MedSurg (observation) nikky rv1 08/28 00:30 02 23:36 nikky rv1 08/28 15:37 00:30 [facility] ER HOLD rv1 em1 15:37 00:30 ERHOLD- rv1 em1
--- NOTE | 2023-08-27 23:37 | ER ---
Nurse's Notes [facility] Name: Ronnell Rubalcava Age: 63 yrs Sex: Female : 1960 Arrival Date: 08/27/2023 Time: 21:22 Bed 15 Private MD: Diagnosis: Low back pain;Muscle spasm of back;Essential (primary) hypertension;Angina pectoris, unspecified;Hypokalemia;Hypomagnesemia Presentation: 08/27 21:40 Chief complaint: Patient states: chest pain started today, described as pressure, 5/10, rv on and off. fell 3mos ago, had back sx, has been on Gilbert 7.5mg for pain. also complaining of neck pain, left shoulder pain, back pain. Coronavirus screen: At this time, the client does not indicate any symptoms associated with coronavirus-19. Ebola Screen: No symptoms or risks identified at this time. Initial Sepsis Screen: Does the patient meet any 2 criteria? No. Patient's initial sepsis screen is negative. Does the patient have a suspected source of infection? No. Patient's initial sepsis screen is negative. Risk Assessment: Do you want to hurt yourself or someone else? Patient reports no desire to harm self or others. Onset of symptoms was August 27, 2023. 21:40 Method Of Arrival: Ambulatory rv 21:40 Acuity: BRYANT 2 rv Triage Assessment: 21:42 General: Appears uncomfortable, Behavior is calm, cooperative. Pain: Complains of pain rv in chest. Neuro: Level of Consciousness is awake, alert, obeys commands, Oriented to person, place, time, situation. Cardiovascular: Capillary refill < 3 seconds Patient's skin is warm and dry. Respiratory: Airway is patent Respiratory effort is even, unlabored. GI: No signs and/or symptoms were reported involving the gastrointestinal system. : No signs and/or symptoms were reported regarding the genitourinary system. Derm: Skin is intact. Historical: - Allergies: 21:42 Morphine; rv 21:42 Tegretol; rv - PMHx: 21:42 Back pain; Fibromyalgia; graves disease; Hypertension; hyperthyroidism; Hypothyroidism; rv Chronic obstructive lung disease; - PSHx: 21:42 back sx (Hypothyroidism); rv - Immunization history:: Adult Immunizations up to date. - Social history:: Smoking status: Patient reports the use of cigarette tobacco products, smokes one-half pack cigarettes per day. - Family history:: not pertinent. Screenin:43 [facility] ED Fall Risk Assessment (Adult) History of falling in the last 3 months, rv including since admission No falls in past 3 months (0 pts) Score/Fall Risk Level 0 - 2 = Low Risk Oriented to surroundings, Maintained a safe environment, Educated pt \T\ family on fall prevention, incl call for assistance when getting out of bed, Assessed \T\ reinforced patient's understanding of fall precautions. Abuse screen: Denies threats or abuse. Denies injuries from another. Nutritional screening: No deficits noted. Tuberculosis screening: No symptoms or risk factors identified. Assessment: 21:44 Pain: Pain does not radiate. Pain began 1 day ago. rv 22:56 General: Appears in no apparent distress. uncomfortable, Behavior is calm, cooperative. tm6 Pain: Complains of pain in back and chest. Neuro: Level of Consciousness is awake, alert, obeys commands, Oriented to person, place, time, situation. Cardiovascular: Capillary refill < 3 seconds Patient's skin is warm and dry. Rhythm is sinus rhythm. Respiratory: Airway is patent Respiratory effort is even, unlabored, Respiratory pattern is regular, symmetrical, Parent/caregiver reports the patient having cough that is non-productive. GI: Abdomen is flat, non-distended. : No signs and/or symptoms were reported regarding the genitourinary system. EENT: No signs and/or symptoms were reported regarding the EENT system. Derm: No signs and/or symptoms reported regarding the dermatologic system. Musculoskeletal: No signs and/or symptoms reported regarding the musculoskeletal system. 08/28 15:58 Reassessment: Unsuccessful attempt to call report at this time. Nurse Gris [email or web address] unavailable, she will call back for report. Vital Signs: 08/27 21:40 BP 154 / 90; Pulse 87; Resp 18; Temp 98.6; Pulse Ox 96% ; rv 22:39 BP 138 / 73; Pulse 74; Resp 17; Pulse Ox 94% on R/A; tm6 23:10 Pain 9/10; tm6 23:10 Pain Scale: Adult tm6 ED Course: 21:28 Patient arrived in ED. gm2 21:36 Jose Ramon Kent MD is Attending Physician. nikky 21:42 Triage completed. rv 21:42 Arm band placed on right wrist. rv 21:43 Patient has correct armband on for positive identification. Client placed on continuous rv cardiac and pulse oximetry monitoring. NIBP monitoring applied. shelter monitor on. 21:44 No provider procedures requiring assistance completed. Patient maintains SpO2 rv saturation greater than 95% on room air. 21:48 Joya June, RN is Primary Nurse. tm6 22:14 XRAY Chest (1 view) In Process Unspecified. EDMS 22:33 Inserted saline lock: 20 gauge in left forearm, using aseptic technique. tm6 22:56 Provided Education on: plan of care. Door closed. Noise minimized. tm6 23:33 Carlin Helton MD is Hospitalizing Provider. [facility] 08/28 00:07 Oxygen administration via nasal cannula \T\ 1L/min. tm6 00:26 CT Aorta for Dissection In Process Unspecified. EDMS 01:28 Patient admitted, IV remains in place. tm6 Administered Medications: 08/27 22:33 Drug: NS 0.9% IV 1000 ml IV at 125 ml/hr continuous Route: IV; Rate: 125 ml/hr; Site: tm6 left forearm; 22:33 Drug: Aspirin PO Chewable Tablet 162 mg PO once Route: PO; tm6 22:33 Drug: Ativan IVP 1 mg IVP once Route: IVP; Site: left forearm; tm6 23:10 Drug: Rocephin IV 1 grams IV at per protocol once; Given slow IV push per pharmacy tm6 instructions Route: IV; Rate: per protocol; Site: left forearm; 23:45 Drug: Potassium PO Effervescent Tablet 50 mEq PO once; dissolve in 4 ounces of water or tm6 juice Route: PO; 23:45 Drug: Magnesium Sulfate IVPB 2 grams IVPB once over 2 hrs Route: IVPB; Infused Over: 2 tm6 hrs; Site: right forearm; 23:45 Drug: fentaNYL (PF) IVP 50 mcg IVP once Route: IVP; Site: left forearm; tm6 23:45 Drug: Ondansetron IVP 4 mg IVP once; over 2 minutes Route: IVP; Site: left forearm; tm6 08/28 00:45 Drug: Diazepam PO 10 mg PO once Route: PO; tm6 00:45 Drug: Decadron - Dexamethasone IVP 10 mg IVP once Route: IVP; Site: left forearm; tm6 00:45 Drug: Ketorolac IVP 15 mg IVP once Route: IVP; Site: left forearm; tm6 00:46 Drug: Metoprolol PO 50 mg PO once Route: PO; tm6 Medication: 08/27 21:43 VIS not applicable for this client. rv Outcome: 23:36 Decision to Hospitalize by Provider. nikky 08/28 01:28 Admitted to ER Hold. Please see [facility] for further documentation. tm6 Condition: stable Instructed on the need for admit, 16:20 Admitted to Med/surg accompanied by tech, room 228, Report called to Gris CAMACHO nj1 16:20 Condition: stable 16:20 Instructed on the need for admit, 17:24 Patient left the ED. iw Signatures: Dispatcher [employer] Jose Ramon Dotson MD MD cha Williams, Irene RN Antonio Tellez RN RN rv Jaco, Norma, RN RN nj1 Yolette [facility] Joya June RN RN 6
[2023-08-28] MEDS ORDERED: ONDANSETRON 4 MG/2 ML VIAL IV PRN (00:26)
[2023-08-28] MEDS ORDERED: dexAMETHasone 10 MG/ML VIAL ONE (00:27)
[2023-08-28] MEDS ORDERED: KETOROLAC 30 MG/ML INJ ONE (00:27)
[2023-08-28] MEDS ORDERED: METOPROLOL XL 50 MG TAB PO ONE (00:27)
[2023-08-28] MEDS ORDERED: DIAZEPAM 5 MG TABLET ONE (00:27)
[2023-08-28 02:17] VITALS: BMI 34.7
[2023-08-28 03:21] LABS: Absolute Lymphocytes (CBC) 1.2 K/uL (0.7-4.9); Absolute Monocytes 0.2 K/uL (0.1-1.3); Absolute Neutrophil 4.6 K/uL (1.8-8.0); Basophils % 0.3 % (0-1.3); Eosinophils % 0.5 % (0-4.4); Hematocrit 38.3 % (36.0-45.0); Hemoglobin 13.1 g/dL (12.0-15.0); Lymphocytes % 19.8 % (15.3-44.8); MCH 30.2 pg (27.0-35.0); MCHC 34.3 g/dL (32.0-36.0); MCV 87.9 fL (80-100); MPV 8.9 fL (7.6-11.3); Monocytes % 3.1 % (3.3-12.3); Neutrophils % 76.3 % (41.7-73.7); Nucleated Red Blood Cells % 0.2 % (0-0); Platelets 223 thou/uL (152-406); RBC Red Blood Cell Count 4.35 M/uL (3.86-4.86); Red Cell Distribution Width 14.7 % (12.1-15.2)
[2023-08-28 03:32] LABS: Albumin 3.5 g/dL (3.4-5.0); Albumin/Globulin Ratio 1.1 (1.1-1.8); Anion Gap 7.7 mEq/L (5.0-15.0); Bilirubin Total 0.5 mg/dL (0.2-1.0); Globulin 3.1 g/dL (2.3-3.5); Magnesium 2.4 mg/dL (1.6-2.4); Potassium 3.7 mEq/L (3.5-5.1); Protein, Total 6.6 g/dL (6.4-8.2); Troponin High Sensitivity 28.2 pg/mL (<58.9)
[2023-08-28] MEDS ORDERED: Magnesium Sulfate 2gm IVPB 2 G/50 ML BAG IV ONE (03:39)
--- NOTE | 2023-08-28 03:42 | P.HP ---
Certification for Inpatient Patient admitted to: Observation With expected LOS: <2 Midnights Practitioner: I am a practitioner with admitting privileges, knowledge of patient current condition, hospital course, and medical plan of care. Services: Services provided to patient in accordance with Admission requirements found in Title 42 Section 412.3 of the Code of Federal Regulations Patient History Date of Service: 08/28/23 Reason for admission: Chest pain History of Present Illness: 63-year-old female with a history of Graves' disease, COPD, tobacco use and Atrial Fib presented to the ED with midsternal sharp chest pain that started 1 day ago. Nonradiating pain, intermittent and worsened with exertion, no shortness of breath, nausea or diaphoresis with it. She smokes half pack per day. She did notice increased tremors of her body, hands and legs along with excessive weakness and palpitation. She complained of severe headache last night, severe lower back pain and some changes in her vision. She denied any diarrhea, vomiting and leg swelling. On arrival to the ED, her vital signs were within normal limits. There was no acute findings on EKG. Abnormal lab was K+ of 3.3, Mg 1.3 and Cr of 1.26 which is about her baseline. Allergies carbamazepine [From Tegretol] Allergy (Verified 05/15/15 02:25) Hives/Rash morphine Adverse Reaction (Verified 03/12/22 18:25) Itching Home Medications: Levothyroxine [Synthroid*] 100 mcg PO [id number] 05/12/13 carvediloL [Coreg*] 12.5 mg PO BID 05/12/13 ALPRAZolam [Xanax*] 1 mg PO DAILY PRN 03/11/22 Fluoxetine HCl [Prozac] 40 mg PO DAILY 03/11/22 Pantoprazole [Protonix Tab*] 40 mg PO DAILY 03/11/22 Trazodone [Desyrel*] 50 mg PO BEDTIME 03/11/22 Albuterol Inhaler [Ventolin Inhaler*] 2 puff IH Q6H PRN #1 03/13/22 Hydrocodone 7.5/APAP 325 [[place] 7.5/325 mg*] 1 tab PO Q6HP PRN #30 tab 03/13/22 Amlodipine [Norvasc*] 10 mg PO DAILY 08/28/23 Atorvastatin Calcium [Lipitor] 80 mg PO DAILY 08/28/23 - Past Medical/Surgical History Has patient received pneumonia vaccine in the past: Yes Diabetic: No -: HTN -: Graves -: Fibromyalgia -: Insomnia -: Depression -: Anxiety -: Hep C -: Smoker -: Chronic Back Pain -: Cellulitis -: -: Epidurals for back pain -: Cholecystectomy -: Appendectomy - Family History Mother -: Cancer Notes: Breast Father -: Heart disease - Social History Smoking Status: Current every day smoker Alcohol use: No CD- Drugs: No Caffeine use: Yes Place of Residence: Home Review of Systems 10-point ROS is otherwise unremarkable Physical Examination - Vital Signs Temperature: 98.6 F Blood Pressure: 154/90 Pulse: 87 Respirations: 18 Pulse Ox (%): 96 - Physical Exam General: Alert, Oriented x3, Mild distress HEENT: Atraumatic, Normocephalic, Mucous membr. moist/pink Neck: Supple, Thyromegaly Respiratory: Clear to auscultation bilaterally, Normal air movement Cardiovascular: Normal pulses, Regular rate/rhythm, Normal S1 S2 Gastrointestinal: Normal bowel sounds, Soft and benign, Non-distended Musculoskeletal: No swelling, No erythema, No tenderness Integumentary: No rashes Neurological: Normal gait, Normal strength at 5/5 x4 extr, Normal tone - Studies Laboratory Data (last 24 hrs) 08/27/23 08/27/23 08/27/23 22:04 22:04 22:04 WBC 7.10 Hgb 13.8 Hct 39.8 Plt Count 247 PT 12.2 INR 1.11 Sodium 138 Potassium 3.3 L BUN 16 Creatinine 1.26 H Glucose 92 Magnesium 1.3 L Total Bilirubin 0.7 AST 21 ALT 39 Alkaline Phosphatase 96 Lipase 45 Microbiology Data (last 24 hrs): 08/27/23 22:12 Nasopharnyx Influenza Type A Antigen Screen - Final 08/27/23 22:12 Nasopharnyx Influenza Type B Antigen Screen - Final Assessment and Plan - Plan Chest pain, atypical Electrolyte abnormalities (hypokalemia and hypomagnesemia) Tremors Chronic A-fib COPD History of Graves' disease Lower back pain Admit to observation Electrolyte replacement Follow-up TSH, lipid panel and troponin Echo CT angio of the chest for aortic dissection Restarted levothyroxine Resume all other home meds as appropriate - Advance Directives Does patient have a Living Will: No Does patient have a Durable POA for Healthcare: No
[2023-08-28 04:42] LABS: Thyroid Stimulating Hormone 0.325 uIU/mL (0.358-3.740); Troponin High Sensitivity 23.9 pg/mL (<58.9)
[2023-08-28] MEDS: LEVOTHYROXINE SOD 0.1 MG TAB PO SCH (06:01)
[2023-08-28] MEDS: POTASSIUM CL SA 10 MEQ TAB PO SCH (07:00)
[2023-08-28] MEDS ORDERED: POTASSIUM CL SA 10 MEQ TAB PO ONE (08:10)
--- NOTE | 2023-08-28 12:24 | RAD REPORT ---
EXAM DESCRIPTION: CT Angiography Chest, Abdomen and Pelvis With Intravenous Contrast CLINICAL HISTORY: Chest and back pain TECHNIQUE: Axial computed tomographic angiography images of the chest, abdomen and pelvis with intra venous contrast. Sagittal and coronal reformatted images were created and reviewed. This CT exam was performed using one or more of the following dose reduction techniques: automated exposure cont rol, adjustment of the mA and/or kV according to patient size, and/or use of iterative reconstruction technique. MIP reconstructed images were created and reviewed. COMPARISON: Chest CTA dated 08/29/2022, Abdomen pelvis CT dated 07/19/2021 FINDINGS: VASCULATURE: Aorta: Mild atherosclerotic disease. No thoracic or abdominal aortic aneurysm. No dissection. Pulmonary arteries: Unremarkable as visualized. No pulmonary embolism is identified. Great vessels of aortic arch: Mild to moderate atherosclerotic narrowing at the proximal left subcl anitha artery. No dissection. Celiac trunk and mesenteric arteries: No acute findings. No occlusion or significant stenosis. Renal arteries: No acute findings. No occlusion or significant stenosis. Iliac arteries: No acute findings. No occlusion or significant stenosis. CHEST: Lungs: Stable 3 mm peripheral left upper lobe nodule (series 402 image 44). No follow-up imaging is necessary. No focal infiltrate. Pleural space: Unremarkable. No significant effusion. No pneumothorax. Heart: Coronary artery calcification. No cardiomegaly. No significant pericardial effusion. ABDOMEN: Liver: The liver is enlarged and diffusely low in density compatible with steatosis. Gallbladder and bile ducts: Prior cholecystectomy. Mild extrahepatic biliary dilatation similar to the prior. Pancreas: Unremarkable. No ductal dilation. No mass. Spleen: Unremarkable. No splenomegaly. Adrenals: Unremarkable. No mass. Kidneys and ureters: Unremarkable. No hydronephrosis. No solid mass. Stomach and bowel: Unremarkable. No obstruction. No mucosal thickening. PELVIS: Appendix: Pericecal suture material compatible with prior appendectomy. Bladder: The urinary bladder is partially decompressed. Reproductive: Unremarkable as visualized. CHEST, ABDOMEN and PELVIS: Intraperitoneal space: Unremarkable. No significant fluid collection. No free air. Bones/joints: Multilevel spondylosis. No acute fracture. No dislocation. Soft tissues: Unremarkable. Lymph nodes: Unremarkable. No enlarged lymph nodes. IMPRESSION: 1. No thoracic or abdominal aortic aneurysm or dissection. 2. Other findings as above. Electronically signed by: Jadyn Lees MD 08/28/2023 12:56 AM BAKER BENCH Due to temporary technical issues with the PACS/Fluency reporting system, reports are being signed by the in house radiologist without review as a courtesy to ensure prompt reporting. The interpreting r adiologist is fully responsible for the content of the report.
[2023-08-28] MEDS ORDERED: ACETAMINOPHEN 500 MG TAB ONE (13:46)
[2023-08-28] MEDS: ACETAMINOPHEN 500 MG TAB PO PRN (13:49)
--- NOTE | 2023-08-28 16:06 | EKG ---
Test Date: 2023-08-27 Test Time: 21:44:58 Word Processor: NAN MEASUREMENT RESULTS: Intervals: Rate: 83 ME: 142 QRSD: 84 QT: 368 QTc: 432 [place]: P: 51 ME: 142 QRS: 68 T: 42 INTERPRETIVE STATEMENTS: Normal sinus rhythm Normal ECG Compared to ECG 08/29/2022 10:54:33 Sinus arrhythmia no longer present Electronically Signed On 08-28-23 16:04:29 [employer]E [employer] FINISH[employer] SUPERVIS[employer] by Usman Polk
--- NOTE | 2023-08-28 18:13 | P.PN ---
Date of Service: 08/28/23 Patient is complaining of intermittent palpitation and tremors. TSH is low indicating some degree of hypothyroidism. Patient reported her Synthroid dose was decreased about a couple of months ago due to hyperthyroid state. She is also complaining of a lump in the submandibular area and in both groin. Plan: Decrease Synthroid dose Obtain CT soft tissue of neck to evaluate patient's complaint. Troponin trended negative.
--- NOTE | 2023-08-28 19:26 | CON ---
Date of Consultation: 08/28/2023 Reason For Consultation: Chest pain. History Of Present Illness: 63-year-old female, history of COPD, actively smoker half a pack per day , history of atrial fibrillation, presented to the emergency room with chest pain, pressure like, ret rosternal, radiates to the neck and left upper extremity along with shortness of breath and it is kary y much related to exertion and rest improves the symptoms but her chest pain has become more intense and frequent, limiting her activities and it gives her also significant anxiety where she starts havi ng generalized body shakes. Denies having any nausea, vomiting, or diaphoresis. No other complaints . Past Medical History: As outlined above in the HPI. Medications: Refer to reconciliation sheet for detailed list. Allergies: CARBAMAZEPINE AND MORPHINE. Family History: No premature coronary artery disease or cancer. Social History: Active smoker half a pack per day. Does not drink or use any drugs. Review of Systems: All systems were reviewed, they were negative except what was mentioned in HPI. Physical Examination: Vital Signs: Reviewed. Head and Neck: Pupils are equal, reactive to light. Intact eye movements. No JVD. No cervical lym phadenopathy. Neck is supple. Thyroid is not enlarged. Lungs: Clear to auscultation bilaterally. No rhonchi, wheezing, or crackles. No accessory muscle u se. Heart: Regular rate and rhythm. No extra sounds. Abdomen: Soft, nontender. Bowel sounds positive. No organomegaly. No masses or hernia. No rigidi ty or rebound. Extremities: No edema, clubbing, cyanosis. Intact pulses. Skin: No rash or nodule. Neuro: Alert, awake, oriented x3. No acute focal deficits appreciated. Investigations: Troponins are negative. Rest of the labs were reviewed. Assessment And Recommendations: 1.Chest pain, very typical symptoms, active smoker. Cardiac enzymes are negative and CT angiogram r uled out dissection. At this point, I recommend coronary angiogram as this could be unstable angina. Start the patient on aspirin 81 mg daily. Keep NPO past midnight for a coronary angiogram. 2.Atrial fibrillation by history. Recommend beta-maria de jesus with metoprolol and anticoagulate with Ashley chetna. 3.Active smoker. Patient was counseled to quit smoking as soon as possible, given that she has sign ificant symptoms and multiple risk factors. SR/MODL Voice ID: [id number] Report ID: [id number]
[2023-08-28] MEDS: ALPRAZOLAM 1 MG TABLET PO PRN (21:49)
[2023-08-28] MEDS: TRAZODONE 50 MG TABLET PO SCH (21:50)
[2023-08-29] MEDS: LEVOTHYROXINE SOD 0.075 MG TAB PO SCH (05:36)
--- NOTE | 2023-08-29 07:16 | ECHO ---
HEIGHT: 5 ft 2 in WEIGHT: 190 lb 0 oz DATE OF STUDY: 08/28/[address]: Carlin Helton MD 2-DIMENSIONAL: YES M.MODE: YES DOPPLER: YES COLOR FLOW: YES TDS: PORTABLE: YES DEFINITY: BUBBLE STUDY: DIAGNOSIS: CHEST PAIN CARDIAC HISTORY: CATHERIZATION: SURGERY: PROSTHETIC VALVE: PACEMAKER: MEASUREMENTS (cm) DIASTOLIC (NORMALS) SYSTOLIC (NORMALS) IVSd 1.0 (0.6-1.2) LA Diam 3.6 (1.9-4.0) LVEF 69% LVIDd 4.4 (3.5-5.7) LVIDs 2.7 (2.0-3.5) %FS 39% LVPWd 1.0 (0.6-1.2) Ao Diam 2.7 (2.0-3.7) 2 DIMENSIONAL ASSESSMENT: RIGHT ATRIUM: NORMAL LEFT ATRIUM: NORMAL RIGHT VENTRICLE: NORMAL LEFT VENTRICLE: NORMAL TRICUSPID VALVE: MILD TRICUSPID REGURGITATION MITRAL VALVE: NORMAL PULMONIC VALVE: MILD PULMONIC INSUFFICIENCY AORTIC VALVE: MILD TO MODERATE AORTIC INSUFFICIENCY PERICARDIAL EFFUSION: NONE AORTIC ROOT: NORMAL LEFT VENTRICULAR WALL MOTION: NORMAL DOPPLER/COLOR FLOW: SEE BELOW COMMENTS: 1. NORMAL LEFT VENTRICULAR EJECTION FRACTION 60-65% WITH NORMAL WALL MOTION 2. GRADE I DIASTOLIC DYSFUNCTION 3. MILD TO MODERATE AORTIC INSUFFICIENCY 4. MILD TRICUSPID REGURGITATION TECHNOLOGIST: EMBER YU
[2023-08-29] MEDS ORDERED: NITROGLYCERIN/D5W 25 MG/250 ML BTL IV ONE (11:59)
[2023-08-29] MEDS ORDERED: HEPA 1000U/500MLS 2,000 UNIT/1,000 ML BAG IV ONE (11:59)
[2023-08-29] MEDS ORDERED: MIDAZOLAM HCL 2 MG/2 ML INJ ONE (12:00)
[2023-08-29] MEDS ORDERED: FENTANYL CITR 100 MCG/2 ML ONE (12:00)
[2023-08-29] MEDS ORDERED: LIDOCAINE 1% 20 ML MDV ONE (12:00)
[2023-08-29] MEDS ORDERED: ATROPINE SULF 1 MG/10 ML SYR IV ONE (12:00)
[2023-08-29] MEDS ORDERED: VERAPAMIL HCL 10 MG/4 ML VIAL IV ONE (12:00)
[2023-08-29] MEDS ORDERED: HEPARIN 5000 UNIT/ML 1 ML VIAL ONE (12:01)
[2023-08-29] MEDS ORDERED: NA CHLORIDE 0.9% 500 ML ONE (12:01)
[2023-08-29] MEDS ORDERED: HEPARIN 10,000 UNIT/10 ML VIAL IV ONE (12:01)
[2023-08-29] MEDS ORDERED: TICAGRELOR 90 MG TABLET PO ONE (12:01)
[2023-08-29] MEDS ORDERED: CLOPIDOGREL 75 MG TABLET ONE (12:02)
[2023-08-29] MEDS ORDERED: ASPIRIN 325 MG TAB ONE (12:02)
--- NOTE | 2023-08-29 15:59 | P.PN ---
Subjective Date of Service: 08/29/23 Chief Complaint: Chest pain Subjective: No new changes Review of Systems 10-point ROS is otherwise unremarkable Physical Examination - Vital Signs Temperature: 97.5 F Blood Pressure: 114/64 Pulse: 61 Respirations: 18 Pulse Ox (%): 95 - Physical Exam General: Alert, Oriented x3 HEENT: Atraumatic Neck: Supple Respiratory: Clear to auscultation bilaterally Cardiovascular: No edema, Normal S1 S2 Gastrointestinal: Normal bowel sounds Assessment And Plan - Current Problems (Diagnosis) (1) Chest pain Onset Date: 01/29/16 Current Visit: No Status: Acute Plan: patient had a coronary angiogram done that shows mild CAD Continue ASA 81 mg daily Start patient on Norvasc 5 mg daily for BP control Follow up in clinic with cardiology. Patient is ok to discharge from cardiac standpoint.
[2023-08-29] MEDS ORDERED: HYDROCODONE/APAP 7.5/325 MG TAB PO PRN (18:50)
[2023-08-29] MEDS ORDERED: ALBUTEROL INHALER 200 PUFF/6.7 GM IH PRN (18:51)
--- NOTE | 2023-08-29 19:07 | P.PN ---
Subjective Date of Service: 08/29/23 Chief Complaint: Chest pain Patient complaining of hand tremors Status post cardiac cath today. Patient denies any chest pain. Physical Examination - Vital Signs Temperature: 97.6 F Blood Pressure: 109/57 Pulse: 63 Respirations: 18 Pulse Ox (%): 95 - Physical Exam General: Alert, In no apparent distress, Oriented x3 Neck: Supple, JVD not distended Respiratory: Clear to auscultation bilaterally, Normal air movement Cardiovascular: No edema, Regular rate/rhythm, Normal S1 S2 Gastrointestinal: Normal bowel sounds, Soft and benign, Non-distended Musculoskeletal: No swelling Integumentary: No rashes, No cyanosis Neurological: Normal strength at 5/5 x4 extr Assessment And Plan - Current Problems (Diagnosis) (1) Coronary artery disease Current Visit: Yes Status: Acute (2) Iatrogenic hyperthyroidism Current Visit: Yes Status: Acute (3) Chest pain Onset Date: 01/29/16 Current Visit: No Status: Acute (4) Hypertension Current Visit: No Status: Chronic Qualifiers: Hypertension type: primary hypertension Qualified Code(s): I10 - Essential (primary) hypertension - Plan Status postcardiac catheterization today and patient noted to have mild coronary artery disease. Cardiology recommended medical management Start aspirin, continue Lipitor. Patient with drug-induced/iatrogenic hyperthyroidism Patient's home Synthroid dose decreased from 125 mcg to [address] soft tissue of the neck done to evaluate patient's complaint of neck mass. Follow CT scan results. Continue other home medications.
--- NOTE | 2023-08-29 19:34 | RAD REPORT ---
EXAM DESCRIPTION: CT - Soft Tissue Neck Wo Contr CLINICAL HISTORY: Submandibular mass COMPARISON: [id number] dated 02/20/2009 TECHNIQUE: Thin axial CT images of the neck, performed without IV contrast. Multiplanar reformats w ere generated and reviewed. All CT scans are performed using dose optimization technique as appropriate and may include automated exposure control or mA/KV adjustment according to patient size. FINDINGS: Nasopharyngeal tissues are normal in appearance. Fossa Rosenmller are normal. Parapharyngeal fat triangles are symmetric. Tongue base structures are normal. Epiglottis and aryepiglottic folds are normal. Piriform sinuses are well aerated. The vocal cords are normal in appearance. No suspicious adenopathy. 3 mm calcific focus within the superficial left parotid lobe. Salivary glands are otherwise normal in appearance. Upper lung cornelius are clear. Included intracranial contents are unremarkable. Qwrk-cm-yfezpasn cervical spine degenerative changes most notably at C5-6 and C6-7. IMPRESSION: Left superficial parotid lobe 3 mm calcific focus suggestive of a small sialolith. No ev idence of duct obstruction. No acute abnormality. No suspicious mucosal mass or adenopathy.
[2023-08-29] MEDS: carvediloL 12.5 MG TAB PO SCH (20:22)
[2023-08-29] MEDS: ATORVASTATIN 80 MG TAB PO SCH (20:23)
[2023-08-29] MEDS: TRAZODONE 50 MG TABLET PO SCH (20:26)
[2023-08-29] MEDS: ALPRAZOLAM 1 MG TABLET PO PRN (20:26)
[2023-08-30 05:25] VITALS: TEMP 97.1
[2023-08-30] MEDS: LEVOTHYROXINE SOD 0.1 MG TAB PO SCH (05:48)
[2023-08-30] MEDS: [UNRECOGNIZED DRUG - OTHER] IH SCH (09:00)
--- NOTE | 2023-08-30 09:08 | P.DS ---
Admission Date: 08/28/23 Discharge Date: 08/30/23 Disposition: ROUTINE DISCHARGE Discharge Condition: FAIR Reason for Admission: Chest pain - Problems (1) Chest pain Onset Date: 01/29/16 Status: Acute (2) Iatrogenic hyperthyroidism Status: Acute (3) Coronary artery disease Status: Acute (4) Hypertension Status: Chronic Qualifiers: Hypertension type: primary hypertension Qualified Code(s): I10 - Essential (primary) hypertension Brief History of Present Illness: 63-year-old female with a history of Graves' disease, COPD, tobacco use and Atrial Fib presented to the ED with midsternal sharp chest pain of 1 day duration day ago, nonradiating pain, intermittent and worsened with exertion, no shortness of breath, nausea or diaphoresis with it. She smokes half pack per day. She did notice increased tremors of her body, hands and legs along with excessive weakness and palpitation. She complained of headache and lower back pain. She denied any diarrhea, vomiting and leg swelling. On arrival to the ED, her vital signs were within normal limits. There was no acute findings on EKG. Abnormal lab was K+ of 3.3, Mg 1.3 and Cr of 1.26 which is about her baseline. Patient was hospitalized for further evaluation and management. Hospital Course: Patient with a history of Graves' disease status post ablation therapy on Synthroid supplement presented to the emergency department with chest pain and other symptoms including tremors, back pain, headache and some feeling of lump in the submandibular area. Patient underwent cardiac catheterization which showed only mild coronary artery disease and did not warrant any percutaneous intervention. Medical management recommended. Patient's lipid profile showed significantly low LDL level which does not warrant any statin therapy. Patient placed on aspirin. Patient's TSH was quite low indicating hyperfunctioning thyroid level even though her thyroid medication was decreased about 3 months ago by her jewellery designer. Her levothyroxine dose is decreased from 100 mcg to [address] soft tissue of the neck was done to evaluate her complaint of a lump in the submandibular area. Patient reported a small calcification in the left parotid gland, no mass identified. Patient reports feeling much better today, the chest pain was not due to a heart attack. She is informed to follow-up with her jewellery designer for further management of her hypothyroidism and to notify her jewellery designer Synthroid dose was decreased during this hospital stay. Vital Signs/Physical Exam: Temp Pulse Resp BP Pulse Ox 97.1 F 60 16 100/56 L 94 08/30/23 07:00 08/30/23 07:00 08/30/23 07:00 08/30/23 07:00 08/30/23 04:00 General: Alert, In no apparent distress, Oriented x3 HEENT: Mucous membr. moist/pink, Sclerae nonicteric Neck: Supple, No Thyromegaly Respiratory: Clear to auscultation bilaterally, Normal air movement Cardiovascular: No edema, Regular rate/rhythm, Normal S1 S2 Gastrointestinal: Normal bowel sounds, Soft and benign, Non-distended, No tenderness Musculoskeletal: No swelling Integumentary: No rashes, No cyanosis Neurological: Normal strength at 5/5 x4 extr Laboratory Data at Discharge: WBC 6.00 thou/uL (4.3-10.9) 08/28/23 03:02 Hgb 13.1 g/dL (12.0-15.0) 08/28/23 03:02 Hct 38.3 % (36.0-45.0) 08/28/23 03:02 Plt Count 223 thou/uL (152-406) 08/28/23 03:02 PT 12.2 SECONDS (9.5-12.5) 08/27/23 22:04 INR 1.11 08/27/23 22:04 Sodium 137 mEq/L (136-145) 08/28/23 03:02 Potassium 3.7 mEq/L (3.5-5.1) 08/28/23 03:02 BUN 12 mg/dL (7-18) 08/28/23 03:02 Creatinine 1.07 mg/dL (0.55-1.02) H 08/28/23 03:02 Glucose 134 mg/dL (74-106) H 08/28/23 03:02 Magnesium 2.4 mg/dL (1.6-2.4) 08/28/23 03:02 Total Bilirubin 0.5 mg/dL (0.2-1.0) 08/28/23 03:02 AST 24 U/L (15-37) 08/28/23 03:02 ALT 35 U/L (13-56) 08/28/23 03:02 Alkaline Phosphatase 88 U/L (45-117) 08/28/23 03:02 Triglycerides 133 mg/dL (<150) 08/28/23 03:59 Cholesterol 99 mg/dL (<200) 08/28/23 03:59 HDL Cholesterol 40 mg/dL (40-60) 08/28/23 03:59 Cholesterol/HDL Ratio 2.48 08/28/23 03:59 Lipase 45 U/L (13-75) 08/27/23 22:04 Home Medications: carvediloL [Coreg*] 12.5 mg PO BID 05/12/13 ALPRAZolam [Xanax*] 1 mg PO DAILY PRN 03/11/22 Fluoxetine HCl [Prozac] 40 mg PO DAILY 03/11/22 Pantoprazole [Protonix Tab*] 40 mg PO DAILY 03/11/22 Trazodone [Desyrel*] 50 mg PO BEDTIME 03/11/22 Albuterol Inhaler [Ventolin Inhaler*] 2 puff IH Q6H PRN #1 03/13/22 Hydrocodone 7.5/APAP 325 [Benge 7.5/325 mg*] 1 tab PO Q6HP PRN #30 tab 03/13/22 Amlodipine [Norvasc*] 10 mg PO DAILY 08/28/23 Atorvastatin Calcium [Lipitor] 80 mg PO DAILY 08/28/23 Umeclidinium Brm/Vilanterol Tr [Anoro Ellipta 62.5-25 Mcg INH] 1 puff IH DAILY 08/28/23 Aspirin [Aspirin EC] 81 mg PO DAILY #30 tab 08/30/23 Levothyroxine [Synthroid*] 75 mcg PO [id number] #30 tab 08/30/23 New Medications: Aspirin [Aspirin EC] 81 mg PO DAILY #30 tab Levothyroxine [Synthroid*] 75 mcg PO [id number] #30 tab Physician Discharge Instructions: Patient with a history of Graves' disease status post ablation therapy on Synthroid supplement presented to the emergency department with chest pain and other symptoms including tremors, back pain, headache and some feeling of lump in the submandibular area. Patient underwent cardiac catheterization which showed only mild coronary artery disease and did not warrant any percutaneous intervention. Medical management recommended. Patient's lipid profile showed significantly low LDL level which does not warrant any statin therapy. Patient placed on aspirin. Patient's TSH was quite low indicating hyperfunctioning thyroid level even thoug h her thyroid medication was decreased about 3 months ago by her jewellery designer. Her levothyroxine dose is decreased from 100 mcg to [address] soft tissue of the neck was done to evaluate her complaint of a lump in the submandibular area. Patient reported a small calcification in the left parotid gland, no mass identified. Patient reports feeling much better today, the chest pain was not due to a heart attack. She is informed to follow-up with her jewellery designer for further management of her hypothyroidism and to notify her jewellery designer Synthroid dose was decreased during this hospital stay. Diet: AHA Activity: Ad tino Followup: Josh Jamison MD [Primary Care Provider] - 1 Week Usman Polk MD [ACTIVE - CAN ADMIT] - 1-2 Weeks Time spent managing pt's care (in minutes): 27
[2023-08-30] MEDS: ASPIRIN EC 81 MG TAB PO SCH (09:42)
[2023-08-30] MEDS: FLUOXETINE 20 MG CAP PO SCH (09:43)
[2023-08-30] MEDS: AMLODIPINE 10 MG TAB PO SCH (09:43)
[2023-08-30] MEDS: PANTOPRAZOLE 40MG TABLET PO SCH (09:44)
[2023-08-30 10:00] VITALS: BP 119/72; O2SAT 95
== END 2023-08-30 11:41 | disposition home or self-care (01) ==
LOC: ER 21:22 → ERHOLD 08-28 00:25 → 2ND 08-28 17:15
PROVIDERS: ADMIT Internal Medicine; ATTEND Internal Medicine
DX: I25.10 Atherosclerotic heart disease of native coronary artery without angina pectoris (principal); E05.80 Other thyrotoxicosis without thyrotoxic crisis or storm; T50.905A Adverse effect of unspecified drugs, medicaments and biological substances, initial encounter; I10 Essential (primary) hypertension; I48.19 Other persistent atrial fibrillation; J44.9 Chronic obstructive pulmonary disease, unspecified; R51.9 Headache, unspecified; M79.7 Fibromyalgia; R22.1 Localized swelling, mass and lump, neck; E87.6 Hypokalemia; E83.42 Hypomagnesemia; R25.1 Tremor, unspecified; R00.2 Palpitations; M62.830 Muscle spasm of back; M54.50 Low back pain, unspecified; G89.29 Other chronic pain; F41.9 Anxiety disorder, unspecified; F32.A Depression, unspecified; G47.00 Insomnia, unspecified; F17.210 Nicotine dependence, cigarettes, uncomplicated; Z71.6 Tobacco abuse counseling; Z79.899 Other long term (current) drug therapy; Z88.5 Allergy status to narcotic agent; Z88.8 Allergy status to other drugs, medicaments and biological substances; Z86.19 Personal history of other infectious and parasitic diseases; Z90.49 Acquired absence of other specified parts of digestive tract; Z11.52 Encounter for screening for COVID-19; Z82.49 Family history of ischemic heart disease and other diseases of the circulatory system; Z80.3 Family history of malignant neoplasm of breast
CPT/HCPCS: 93005; 93306; 87088; 85025 ×2; 81001; 87086; 80048; 36415; 83735 ×2; 85610; 80061; 80076; 84443; 84484 ×4; 83690; 80053; 83880; 87804 ×2; 70490; 71275; 74175; 71045; 93454; 76937; 97535; 97116; 97161; 97165; 99285; 87811; Q9967; C1893; Q9966; J1644; J3475; J2001; J2250; J3010 ×2; J1100; J2405; G0378 ×5; J7040; J7030; J0696; 99152; 99153; J0461

== ENCOUNTER 2024-05-05 15:48 | Emergency (ER) | payer OTHER ==
--- NOTE | 2024-05-05 18:16 | RAD REPORT ---
EXAMINATION: ONE VIEW CHEST XR CLINICAL INDICATION: CHEST PAIN TECHNIQUE: Frontal chest projection is submitted. Examination is limited by patient positioning and t echnique. COMPARISON: 08/27/2023 FINDINGS: Mild bilateral pulmonary edema is suspected. The heart is upper limit of normal in size. No displaced fractures identified. IMPRESSION: Mild CHF versus volume overload pattern is suspected.
[2024-05-05] MEDS ORDERED: ONDANSETRON 4 MG/2 ML VIAL ONE (18:40)
[2024-05-05] MEDS ORDERED: MORPHINE 2 MG/ML SYR ONE (18:40)
[2024-05-05 18:47] LABS: SARS-CoV-2 Antigen CONTROL BLUE LINE VIS/BG OK; SARS-CoV-2 Antigen Rapid Res Negative (Negative)
[2024-05-05 18:48] LABS: Absolute Basophils 0.1 K/uL (0-0.5); Absolute Monocytes 0.5 K/uL (0.1-1.3); Absolute Neutrophil 8.3 K/uL (1.8-8.0); Basophils % 0.6 % (0-1.3); Eosinophils % 0.3 % (0-4.4); Hematocrit 41.5 % (36.0-45.0); Hemoglobin 14.2 g/dL (12.0-15.0); Lymphocytes % 18.1 % (15.3-44.8); MCH 30.6 pg (27.0-35.0); MCHC 34.2 g/dL (32.0-36.0); MCV 89.6 fL (80-100); MPV 8.5 fL (7.6-11.3); Monocytes % 4.6 % (3.3-12.3); Neutrophils % 76.4 % (41.7-73.7); Nucleated Red Blood Cells % 0.1 % (0-0); PT Prothrombin Time 11.4 SECONDS (9.4-12.5); Platelets 236 thou/uL (152-406); Protime INR 1.02; RBC Red Blood Cell Count 4.63 M/uL (3.86-4.86); Red Cell Distribution Width 14.2 % (12.1-15.2)
[2024-05-05 18:49] LABS: ALT/SGPT 26 U/L (13-56); AST/SGOT 19 U/L (15-37); Albumin 3.8 g/dL (3.4-5.0); Albumin/Globulin Ratio 1.1 (1.1-1.8); Alkaline Phosphatase 78 U/L (45-117); Bilirubin Total 0.6 mg/dL (0.2-1.0); Globulin 3.4 g/dL (2.3-3.5); Lipase 53 U/L (13-75); Protein, Total 7.2 g/dL (6.4-8.2)
[2024-05-05 18:50] LABS: Anion Gap 7.9 mEq/L (5.0-15.0); Potassium 3.9 mEq/L (3.5-5.1); Troponin High Sensitivity 3.8 pg/mL (<58.9)
[2024-05-05 19:04] LABS: Bilirubin Direct < 0.2 mg/dL (0-0.2); Bilirubin Indirect, Calculated 0.4 mg/dL (0.2-0.8)
[2024-05-05] MEDS ORDERED: DIPHENHYDRAMINE 50 MG/ML VIAL ONE (19:42)
[2024-05-05] MEDS ORDERED: METHYLPREDNISOLONE 125 MG INJ ONE (19:42)
[2024-05-05] MEDS ORDERED: FENTANYL CITR 100 MCG/2 ML ONE (20:48)
--- NOTE | 2024-05-05 21:40 | RAD REPORT ---
EXAMINATION: CT ABDOMEN AND PELVIS WITH CONTRAST CLINICAL INDICATION: ABD PAIN TECHNIQUE: CT abdomen and pelvis was performed, after the administration of IV contrast, as per [facility] protocol. Axial, sagittal and coronal reconstructions were obtained. One or more of the following dose reduction techniques were used: Automated exposure control, adjustment of the mA and k V according to patient size, and iterative reconstruction. Unless otherwise specified, incidental findings do not require dedicated imaging follow-up. COMPARISON: 08/28/2023, 06/19/2020 FINDINGS: LOWER CHEST: The visualized lung bases are clear. LIVER: Mild fatty liver is present. No focal lesion or biliary dilatation is seen. Cholecystectomy clips. SPLEEN: Normal size. No focal lesion. PANCREAS: No mass, ductal dilation, or ashkan-pancreatic fluid. ADRENALS: Normal; no mass. KIDNEYS: Normal size and contour. No hydronephrosis. GASTROINTESTINAL TRACT: No evidence of free air, significant intra-abdominal free fluid, bowel obstru ction or abscess. APPENDIX: Normal appendix. LYMPH NODES: No lymphadenopathy. MUSCULOSKELETAL: Mild multilevel spinal degenerative changes. ADDITIONAL FINDINGS: None. IMPRESSION: No acute or concerning abnormalities seen in the abdomen or pelvis. Mild diffuse fatty liver.
--- NOTE | 2024-05-05 22:00 | EDPHYS ---
Physician Documentation [facility] Name: Ronnell Rubalcava Age: 64 yrs Sex: Female : 1960 Arrival Date: 05/05/2024 Time: 15:48 Bed 17 Private MD: ED Physician Catalina Rae HPI: 05/05 23:30 This 64 yrs old Female presents to ER via Ambulatory with complaints of Chest Pressure, kb Cough, Nausea. 23:30 Pt is a 64 year old female who presents for chest pain and upper abd pain that radiates kb to left shoulder that started this morning. Pain is worse with palpation. States she also had a cough through the night last night. denies fever, vomiting, diarrhea, shortness of breath. STates she has had some nausea. . Historical: - Allergies: 16:06 Morphine; cm10 16:06 Tegretol; cm10 - PMHx: 16:06 Back pain; Chronic obstructive lung disease; Fibromyalgia; graves disease; cm10 Hypertension; hyperthyroidism; Hypothyroidism; - PSHx: 16:06 back sx (yr); cm10 - Immunization history:: Adult Immunizations. - Infectious Disease History:: Denies. - Social history:: Smoking status: Patient reports the use of cigarette tobacco products, unknown amount Patient reports use of chewing tobacco. ROS: 22:18 Constitutional: As per HPI kb Exam: 22:18 Constitutional: This is a well developed, well nourished patient who is awake, alert, kb and in no acute distress. Head/Face: Normocephalic, atraumatic. ENT: Moist Mucous membranes Cardiovascular: Regular rate Respiratory: Respirations even and unlabored. No increased work of breathing. Talking in full sentences Skin: Warm, dry with normal turgor. Normal color. MS/ Extremity: Pulses equal, no cyanosis. Neurovascular intact. Full, normal range of motion. Neuro: Awake and alert, GCS 15, oriented to person, place, time, and situation. 22:18 Abdomen/GI: Inspection: abdomen appears normal, Bowel sounds: normal, Palpation: soft, in all quadrants, mild abdominal tenderness, in the right upper quadrant and left upper quadrant, Vital Signs: 16:04 BP 146 / 77; Pulse 84; Resp 16; Temp 97.2; Pulse Ox 96% on R/A; Weight 86.18 kg; Height cm10 5 ft. 2 in. ; Pain 7/10; 19:00 BP 107 / 84; Pulse 73; Resp 18; Pulse Ox 95% ; bp 20:18 BP 129 / 88; Pulse 75; Resp 18; Pulse Ox 95% ; cp4 21:30 BP 118 / 78; Pulse 74; Resp 18; Pulse Ox 94% ; cp4 22:31 BP 126 / 67; Pulse 72; Resp 18; Pulse Ox 95% ; cp4 16:04 Body Mass Index 34.75 (86.18 kg, 157.48 cm) cm10 16:04 Pain Scale: Adult cm10 MDM: 17:54 Medical Screening Exam initiated kb 22:19 Differential diagnosis: pancreatitis, acute mi, arrhythmia, GERD. Data reviewed: vital kb signs, nurses notes. Consideration of Admission/Observation Escalation of care including admission/observation considered. admission considered and recommended. Pt does not want to be admitted. States she will follow up with cardiology. Would like to go home now. . Counseling: I had a detailed discussion with the patient and/or guardian regarding the historical points, exam findings, and any diagnostic results supporting the discharge/admit diagnosis, lab results, radiology results, the need for further work-up and treatment in the hospital. 05/05 17:02 Order name: Basic Metabolic Panel; Complete Time: 18:57 rn 05/05 17:02 Order name: CBC with Diff; Complete Time: 18:57 rn 05/05 17:02 Order name: NT PRO-BNP; Complete Time: 18:57 rn 05/05 17:02 Order name: PT-INR; Complete Time: 18:57 rn 05/05 17:02 Order name: Troponin HS; Complete Time: 18:57 rn 05/05 18:03 Order name: LFT's; Complete Time: 19:07 kb 05/05 18:03 Order name: Lipase; Complete Time: 19:07 kb 05/05 18:03 Order name: SARS-COV-2 Antigen Rapid; Complete Time: 18:47 kb 05/05 18:03 Order name: Flu; Complete Time: 18:47 kb 05/05 17:02 Order name: XRAY Chest (1 view); Complete Time: 18:21 rn 05/05 20:40 Order name: CT Abd/Pelvis - IV Contrast Only; Complete Time: 21:44 kb 05/05 17:02 Order name: Cardiac monitoring; Complete Time: 17:53 rn 05/05 17:02 Order name: EKG - Nurse/Tech; Complete Time: 17:53 rn 05/05 17:02 Order name: IV Saline Lock; Complete Time: 18:12 rn 05/05 17:02 Order name: Labs collected and sent; Complete Time: 18:12 rn 05/05 17:02 Order name: O2 Per Protocol; Complete Time: 17:53 rn 05/05 17:02 Order name: O2 Sat Monitoring; Complete Time: 17:53 rn Administered Medications: 18:45 Drug: Ondansetron IVP 4 mg IVP once; over 2 minutes Route: IVP; Site: right forearm; bp 20:52 Follow up: Response: No adverse reaction cp4 18:46 Drug: morphine IVP or IV 2 mg IVP once over 4 mins Route: IVP; Infused Over: 4 mins; bp Site: right forearm; 20:52 Follow up: Response: No adverse reaction; Pain is decreased cp4 19:49 Drug: MethylPrednisoLONE IVP 125 mg IVP once Route: IVP; Site: right forearm; cp4 20:51 Follow up: Response: No adverse reaction cp4 19:49 Drug: diphenhydrAMINE IVP 25 mg IVP once Route: IVP; Site: right forearm; cp4 20:51 Follow up: Response: No adverse reaction cp4 20:51 Drug: fentaNYL (PF) IVP 25 mcg IVP once Route: IVP; Site: right forearm; cp4 22:03 Follow up: Response: No adverse reaction; Pain is decreased cp4 Disposition: 20:17 Co-signature as Attending Physician, Catalina Rae I agree with the assessment ci and plan of care. I reviewed the patient's care provided by the Advanced Practice Provider and agree with the diagnosis and treatment plan. Disposition Summary: 05/05/24 22:18 Discharge Ordered Notes: Location: Home(05/05/24 22:18) kb Condition: Stable(05/05/24 22:18) kb Diagnosis - Chest pain, unspecified(05/05/24 22:18) kb Followup: kb - With: Emergency Department - When: As needed - Reason: Worsening of condition Followup: kb - With: Private Physician - When: 2 - 3 days - Reason: Recheck today's complaints, Continuance of care, Re-evaluation by your physician Discharge Instructions: - Discharge Summary Sheet kb - Nonspecific Chest Pain, Adult, [id number] kb Forms: - Medication Reconciliation Form kb - Antibiotic Education kb - Prescription Opioid Use kb - Patient Portal Instructions kb - Leadership Thank You Letter kb Signatures: Dispatcher [employer] EDMS GarrettMiloCarmen, BRANCH SPECIALIST-C BRANCH SPECIALIST-Ckb Luis Britton MD MD rn Peltier, Jerome RN RN Kiera Lieberman, RN RN cm10 Fay Yost cp4 Catalina Rae Corrections: (The following items were deleted from the chart) 17:02 17:02 Chest Single View+RAD.RAD.BRZ ordered. EDMS EDMS 18:03 18:03 HEPATIC FUNCTION+C.LAB.BRZ ordered. EDMS EDMS 18:03 18:03 LIPASE+C.LAB.BRZ ordered. EDMS EDMS 18:03 18:03 SARS-COV-2 Antigen Rapid+I.LAB.BRZ ordered. EDMS EDMS 18:03 18:03 Influenza Screen (A \T\ B)+BA.LAB.BRZ ordered. EDMS EDMS 22:18 22:00 Observation kb kb 22:18 22:00 Luis Alberto Zapien kb kb 22:18 22:00 Telemetry/MedSurg (observation) kb kb 22:18 22:00 Stable kb kb 22:18 22:00 new kb kb 22:18 22:00 are unchanged kb kb 22:18 22:00 Standard kb kb 22:18 22:00 kb kb 22:18 22:00 Chest pain, unspecified kb kb
--- NOTE | 2024-05-05 22:00 | ER ---
Nurse's Notes [facility] Name: Ronnell Rubalcava Age: 64 yrs Sex: Female : 1960 Arrival Date: 05/05/2024 Time: 15:48 Bed 17 Private MD: Diagnosis: Chest pain, unspecified Presentation: 05/05 16:04 Chief complaint: Patient states: Chest pain to the center of her chest that radiates to cm10 upper back onset this morning. Pt describes the pain as a squeezing, pressure and burning pain. Pt also reports that she has had a cough. Coronavirus screen: Client denies travel out of the [place] in the last 14 days. Ebola Screen: Patient denies travel to an Ebola-affected area in the 21 days before illness onset. No symptoms or risks identified at this time. Initial Sepsis Screen: Does the patient meet any 2 criteria? No. Patient's initial sepsis screen is negative. Does the patient have a suspected source of infection? No. Patient's initial sepsis screen is negative. Risk Assessment: Do you want to hurt yourself or someone else? Patient reports no desire to harm self or others. Onset of symptoms was May 05, 2024. 16:04 Method Of Arrival: Ambulatory cm10 16:04 Acuity: BRYANT 2 cm10 Triage Assessment: 16:06 General: Appears in no apparent distress. comfortable, Behavior is calm, cooperative. cm10 Neuro: No deficits noted. Level of Consciousness is awake, alert, obeys commands, Oriented to person, place, time, situation, Appropriate for age. Respiratory: No deficits noted. Airway is patent Respiratory effort is even, unlabored, Respiratory pattern is regular, symmetrical. Historical: - Allergies: 16:06 Morphine; cm10 16:06 Tegretol; cm10 - PMHx: 16:06 Back pain; Chronic obstructive lung disease; Fibromyalgia; graves disease; cm10 Hypertension; hyperthyroidism; Hypothyroidism; - PSHx: 16:06 back sx (yr); cm10 - Immunization history:: Adult Immunizations. - Infectious Disease History:: Denies. - Social history:: Smoking status: Patient reports the use of cigarette tobacco products, unknown amount Patient reports use of chewing tobacco. Screenin:02 [facility] ED Fall Risk Assessment (Adult) History of falling in the last 3 months, cp4 including since admission No falls in past 3 months (0 pts) Confusion or Disorientation No (0 pts) Intoxicated or Sedated No (0 pts) Impaired Gait No (0 pts) Mobility Assist Device Used No (0 pt) Altered Elimination No (0 pt) Score/Fall Risk Level 0 - 2 = Low Risk Oriented to surroundings, Maintained a safe environment, Assessed \T\ reinforced patient's understanding of fall precautions, Hourly rounding (assess needs \T\ fall precautionary measures) done. Abuse screen: Denies threats or abuse. Nutritional screening: No deficits noted. Tuberculosis screening: No symptoms or risk factors identified. Assessment: 20:02 General: Appears in no apparent distress. comfortable, Behavior is calm, cooperative, cp4 appropriate for age. Pain: Complains of pain in chest Pain does not radiate. Pain currently is 5 out of 10 on a pain scale. Pain began gradually. Neuro: Level of Consciousness is awake, alert, obeys commands, Oriented to person, place, time, situation. Cardiovascular: Reports chest pain, Patient's skin is warm and dry. Rhythm is sinus rhythm. Respiratory: Airway is patent Respiratory effort is even, unlabored. GI: Reports nausea. : No signs and/or symptoms were reported regarding the genitourinary system. EENT: No signs and/or symptoms were reported regarding the EENT system. Derm: No signs and/or symptoms reported regarding the dermatologic system. Musculoskeletal: No signs and/or symptoms reported regarding the musculoskeletal system. 21:00 Reassessment: Patient appears in no apparent distress at this time. Patient and/or cp4 family updated on plan of care and expected duration. Pain level reassessed. Patient is alert, oriented x 3, equal unlabored respirations, skin warm/dry/pink. 22:00 Reassessment: Patient appears in no apparent distress at this time. Patient and/or cp4 family updated on plan of care and expected duration. Pain level reassessed. Patient is alert, oriented x 3, equal unlabored respirations, skin warm/dry/pink. Vital Signs: 16:04 BP 146 / 77; Pulse 84; Resp 16; Temp 97.2; Pulse Ox 96% on R/A; Weight 86.18 kg; Height cm10 5 ft. 2 in. ; Pain 7/10; 19:00 BP 107 / 84; Pulse 73; Resp 18; Pulse Ox 95% ; bp 20:18 BP 129 / 88; Pulse 75; Resp 18; Pulse Ox 95% ; cp4 21:30 BP 118 / 78; Pulse 74; Resp 18; Pulse Ox 94% ; cp4 22:31 BP 126 / 67; Pulse 72; Resp 18; Pulse Ox 95% ; cp4 16:04 Body Mass Index 34.75 (86.18 kg, 157.48 cm) cm10 16:04 Pain Scale: Adult cm10 ED Course: 15:51 Patient arrived in ED. mg5 16:06 Triage completed. cm10 16:06 Arm band placed on right wrist. Patient placed in waiting room. EKG completed in cm10 triage. Results shown to MD. 17:18 Patient placed in an exam room, on a stretcher. ll1 17:32 Jerome Ruiz, JANICE is Primary Nurse. bp 17:54 Carmen Tucker FNP-C is PHCP. kb 17:54 Catalina Rae is Attending Physician. kb 18:12 XRAY Chest (1 view) In Process Unspecified. EDMS 19:00 No provider procedures requiring assistance completed. Inserted saline lock: 22 gauge cp4 in right forearm, using aseptic technique. Blood collected. Flushed with 10 mL NS. Patient maintains SpO2 saturation greater than 95% on room air. 20:02 Placed in gown. Bed in low position. Call light in reach. Side rails up X 1. Provided cp4 Education on: chest pain. Client placed on continuous cardiac and pulse oximetry monitoring. NIBP monitoring applied. cardiac monitor technician on. Pulse ox on. NIBP on. 20:06 Primary Nurse role handed off by Jerome Ruiz, JANICE cp4 20:06 Fay Yost is Primary Nurse. cp4 21:26 CT Abd/Pelvis - IV Contrast Only In Process Unspecified. EDMS 22:00 Luis Alberto Zapien MD is Hospitalizing Provider. kb 22:33 intact, bleeding controlled, No redness/swelling at site. Pressure dressing applied. cp4 Administered Medications: 18:45 Drug: Ondansetron IVP 4 mg IVP once; over 2 minutes Route: IVP; Site: right forearm; bp 20:52 Follow up: Response: No adverse reaction cp4 18:46 Drug: morphine IVP or IV 2 mg IVP once over 4 mins Route: IVP; Infused Over: 4 mins; bp Site: right forearm; 20:52 Follow up: Response: No adverse reaction; Pain is decreased cp4 19:49 Drug: MethylPrednisoLONE IVP 125 mg IVP once Route: IVP; Site: right forearm; cp4 20:51 Follow up: Response: No adverse reaction cp4 19:49 Drug: diphenhydrAMINE IVP 25 mg IVP once Route: IVP; Site: right forearm; cp4 20:51 Follow up: Response: No adverse reaction cp4 20:51 Drug: fentaNYL (PF) IVP 25 mcg IVP once Route: IVP; Site: right forearm; cp4 22:03 Follow up: Response: No adverse reaction; Pain is decreased cp4 Medication: 20:02 VIS not applicable for this client. cp4 Outcome: 22:00 Decision to Hospitalize by Provider. kb 22:18 Discharge ordered by MD. kb 22:33 Discharged to home ambulatory, cp4 22:33 Condition: stable 22:33 Discharge instructions given to patient, Instructed on discharge instructions, follow up and referral plans. Demonstrated understanding of instructions, follow-up care, 22:34 Patient left the ED. cp4 Signatures: Dispatcher [employer] EDMS Carmen Tucker, DESIREE-Keanu DIE MAKER TRIM-Jerome Romero RN RN bp Sophie Cornejo RN RN ll1 Kiera Oates RN RN cm10 Lucille Llamas 5 Fay Yost cp4
[2024-05-05 23:27] VITALS: TEMP 97.2
[2024-05-05 23:32] VITALS: BP 126/67; O2SAT 95
--- NOTE | 2024-05-06 11:09 | EKG ---
Test Date: 2024-05-05 Test Time: 16:03:44 Family Services Coordinator: SAMUEL MEASUREMENT RESULTS: Intervals: Rate: 80 NM: 142 QRSD: 80 QT: 350 QTc: 403 [place]: P: 44 NM: 142 QRS: 55 T: 58 INTERPRETIVE STATEMENTS: Normal sinus rhythm Normal ECG Compared to ECG 08/27/2023 21:44:58 No significant changes Electronically Signed On 05-06-24 11:07:21 CDT by Sanchez Zambrano
== END 2024-05-05 22:34 | disposition home or self-care (01) ==
LOC: ER 15:48
DX: R07.9 Chest pain, unspecified (principal); I10 Essential (primary) hypertension; J44.9 Chronic obstructive pulmonary disease, unspecified; F17.220 Nicotine dependence, chewing tobacco, uncomplicated; Z11.52 Encounter for screening for COVID-19
CPT/HCPCS: 85025; 80048; 36415; 85610; 80076; 84484; 83690; 83880; 87804 ×2; 74177; 71045; 87811; Q9967; J1200; J3010; J2270; J2919; J2405; 93005; 96374; 96375; 99285

== ENCOUNTER 2024-05-07 19:55 | Emergency (ER) | payer OTHER ==
[2024-05-07 20:51] LABS: Absolute Basophils 0.1 K/uL (0-0.5); Absolute Eosinophils 0.1 K/uL (0-0.5); Absolute Lymphocytes (CBC) 2.8 K/uL (0.7-4.9); Absolute Monocytes 0.6 K/uL (0.1-1.3); Basophils % 0.7 % (0-1.3); Eosinophils % 0.9 % (0-4.4); Hematocrit 40.6 % (36.0-45.0); Hemoglobin 13.9 g/dL (12.0-15.0); Lymphocytes % 32.7 % (15.3-44.8); MCH 30.8 pg (27.0-35.0); MCHC 34.3 g/dL (32.0-36.0); MCV 89.8 fL (80-100); MPV 8.5 fL (7.6-11.3); Neutrophils % 58.7 % (41.7-73.7); Nucleated Red Blood Cells % 0.1 % (0-0); Platelets 244 thou/uL (152-406); RBC Red Blood Cell Count 4.52 M/uL (3.86-4.86)
[2024-05-07 21:04] LABS: PT Prothrombin Time 11.3 SECONDS (9.4-12.5); Protime INR 1.01
[2024-05-07] MEDS ORDERED: ONDANSETRON 4 MG/2 ML VIAL ONE (21:06)
[2024-05-07] MEDS ORDERED: FENTANYL CITR 100 MCG/2 ML ONE (21:07)
[2024-05-07 21:12] LABS: ALT/SGPT 25 U/L (13-56); AST/SGOT 14 U/L (15-37); Albumin 3.6 g/dL (3.4-5.0); Alkaline Phosphatase 77 U/L (45-117); Anion Gap 8.4 mEq/L (5.0-15.0); BUN Blood Urea Nitrogen 12 mg/dL (7-18); Bicarbonate 27 mEq/L (21-32); Bilirubin Total 0.4 mg/dL (0.2-1.0); Globulin 3.5 g/dL (2.3-3.5); Glomerular Filtration Rate 52 ml/min (=/>90); Glucose Level 94 mg/dL (74-106); Lipase 49 U/L (13-75); Magnesium 1.7 mg/dL (1.6-2.4); NT PRO-BNP 630 pg/mL (<125); Potassium 3.4 mEq/L (3.5-5.1); Protein, Total 7.1 g/dL (6.4-8.2); Sodium Level 137 mEq/L (136-145); Troponin High Sensitivity 4.7 pg/mL (<58.9)
[2024-05-07 21:14] LABS: Bilirubin Direct < 0.2 mg/dL (0-0.2); Bilirubin Indirect, Calculated 0.2 mg/dL (0.2-0.8)
[2024-05-07 21:15] LABS: SARS-CoV-2 Antigen CONTROL BLUE LINE VIS/BG OK; SARS-CoV-2 Antigen Rapid Res Negative (Negative)
[2024-05-07] MEDS ORDERED: IPRATROPIUM BROM 0.5MG/2.5ML ONE (21:52)
[2024-05-07] MEDS ORDERED: ALBUTEROL 2.5 MG/3 ML NEB SOL ONE (21:52)
--- NOTE | 2024-05-07 22:13 | RAD REPORT ---
EXAM: Chest Pa And Lat (2 Views) HISTORY: COUGH COMPARISON: 05/05/2024 FINDINGS: LUNGS/PLEURA: The lungs are clear. No pleural effusions or pneumothorax. No pulmonary edema. MEDIASTINUM: The mediastinal silhouette is within normal limits. CARDIAC: The cardiac silhouette is within normal limits. UPPER ABDOMEN: No significant abnormality. BONES: No acute fracture. LINES/TUBES/OTHER: N/A IMPRESSION: No evidence of acute cardiopulmonary disease
--- NOTE | 2024-05-07 23:57 | RAD REPORT ---
EXAM: Angio Aorta For Dissection CLINICAL INDICATION: Female, 64 years chest pain, abdominal pain TECHNIQUE: CTA of the aorta was obtained including the chest, abdomen and pelvis, with IV contrast, a s per department protocol. Axial, sagittal and coronal reconstructions were obtained. Post-processing was applied at the acquisition scanner with concurrent physician supervision which in cludes 3D reconstructions, MIPs, volume rendered images and/or shaded surface rendering. One or more of the following dose reduction techniques were used: Automated exposure control, adjustment of the mA and/or kV according to the patient size, and/or iterative reconstruction. Unless otherwise specified, incidental findings do not require dedicated imaging follow-up. [id number]. COMPARISON: 08/28/2023 FINDINGS: Chest: LOWER NECK/CHEST WALL: Visualized thyroid gland and soft tissues are normal. LUNGS AND AIRWAYS: Some scattered mild groundglass and nodular opacities are present in the right bing g. These are new from prior. PLEURA: No pleural effusion. No pneumothorax. Hemidiaphragms are normally positioned. MEDIASTINUM AND LYMPH NODES: No mediastinal mass or fluid collection. Normal size mediastinal, hilar, and axillary lymph nodes. THORACIC AORTA: Normal caliber and configuration. PULMONARY ARTERIES: Normal caliber. HEART: Unremarkable. Abdomen/Pelvis LIVER: Normal in size and contour. No focal lesion. Hepatic steatosis. GALLBLADDER/BILE DUCTS: Cholecystectomy. Mild extrahepatic biliary duct dilatation is likely related to post cholecystectomy state. PANCREAS: No mass, ductal dilation, or ashkan-pancreatic fluid. SPLEEN: Normal size. No focal lesion. ADRENALS: Normal; no mass. KIDNEYS AND URETERS: Normal size and contour. No hydronephrosis. GASTROINTESTINAL TRACT: Stomach is non-dilated. Small bowel has normal course and caliber. No colonic wall thickening or pericolonic inflammatory changes. PERITONEUM: No free fluid. LYMPH NODES: No lymphadenopathy. ABDOMINAL AORTA AND OTHER VESSELS: Normal caliber aorta and IVC. Mild atherosclerosis. No dissection or aneurysm. URINARY BLADDER: Normal contour. REPRODUCTIVE ORGANS: No pathologic process. MUSCULOSKELETAL: No acute or suspicious osseous abnormality. ADDITIONAL FINDINGS: None IMPRESSION: No aortic aneurysm or dissection. A few new groundglass and nodular foci in the right lung are noted which could reflect mild infection or inflammation..
[2024-05-08] MEDS ORDERED: POTASSIUM 25 MEQ EFFERV TAB ONE (00:13)
[2024-05-08] MEDS ORDERED: FUROSEMIDE 20 MG/ 2ML VIAL ONE (00:13)
[2024-05-08] MEDS ORDERED: METHYLPREDNISOLONE 125 MG INJ ONE (00:13)
[2024-05-08] MEDS ORDERED: FENTANYL CITR 100 MCG/2 ML ONE (01:41)
--- NOTE | 2024-05-08 02:10 | EDPHYS ---
Physician Documentation [facility] Name: Ronnell Rubalcava Age: 64 yrs Sex: Female : 1960 Arrival Date: 05/07/2024 Time: 19:55 Bed 18 Private MD: ED Physician Jose Ramon Kent HPI: 05/07 20:38 This 64 yrs old Female presents to ER via Ambulatory with complaints of Chest cp Tightness, Shortness Of Breath, Epigastric Pain, Abdominal Swelling, Dizziness, Nausea. 20:38 The patient has shortness of breath at rest. cp 20:38 Onset: The symptoms/episode began/occurred last night. cp 20:38 Duration: The symptoms are continuous, and are steadily getting worse. The chest pain cp is described as a heaviness, tightness. Severity of pain: in the emergency department the pain is unchanged despite home interventions. Historical: - Allergies: 20:05 Morphine; br2 20:05 Tegretol; br2 - PMHx: 20:05 Back pain; Chronic obstructive lung disease; Fibromyalgia; graves disease; br2 Hypertension; PMHx:; - PSHx: 20:05 back sx; br2 - Immunization history:: Adult Immunizations not up to date. - Infectious Disease History:: Denies. - Social history:: Smoking status: Patient reports the use of cigarette tobacco products, smokes one-half pack cigarettes per day, Patient/guardian denies using alcohol, street drugs. ROS: 20:40 Constitutional: Negative for body aches, chills, fever, poor PO intake, cp 20:40 Eyes: Negative for injury, pain, redness, and discharge, cp 20:40 ENT: Negative for drainage from ear(s), ear pain, sore throat, difficulty swallowing, difficulty handling secretions, 20:40 Cardiovascular: Positive for chest tightness, Negative for palpitations, 20:40 Respiratory: Positive for cough, shortness of breath, at rest. 20:40 Abdomen/GI: Positive for nausea, Negative for abdominal pain, vomiting, diarrhea, constipation, 20:40 Back: Negative for pain at rest, pain with movement, 20:40 Neuro: Positive for dizziness, weakness, Negative for altered mental status, headache, numbness, 20:40 All other systems are negative, Exam: 20:15 ECG was reviewed by the Attending Physician. cp 20:45 Constitutional: The patient appears in no acute distress, alert, awake, cp non-diaphoretic, non-toxic, well developed, well nourished, uncomfortable, 20:45 Head/Face: Normocephalic, atraumatic. cp 20:45 Eyes: Periorbital structures: appear normal, Conjunctiva: normal, no exudate, no injection, Sclera: no appreciated abnormality, Lids and lashes: appear normal, bilaterally, 20:45 ENT: External ear(s): are unremarkable, Nose: is normal, Mouth: Lips: moist, Oral mucosa: pink and intact, moist, Posterior pharynx: Airway: no evidence of obstruction, patent, 20:45 Neck: ROM/movement: is normal, is supple, without pain, no range of motions limitations, 20:45 Chest/axilla: Inspection: normal, Palpation: crepitus, is not appreciated, tenderness, that is moderate, of the lower chest wall, 20:45 Cardiovascular: Rate: normal, Rhythm: regular, Edema: ankle edema, that is mild, JVD: is not appreciated, 20:45 Respiratory: the patient does not display signs of respiratory distress, Respirations: labored breathing, that is mild, Breath sounds: are clear throughout, no decreased breath sounds, no stridor, no wheezing, 20:45 Abdomen/GI: Inspection: abdomen appears normal, Bowel sounds: active, all quadrants, Palpation: soft, in all quadrants, moderate abdominal tenderness, in the right upper quadrant and left upper quadrant, rebound tenderness, is not appreciated, involuntary guarding, is not appreciated, 20:45 Back: CVA tenderness, is absent, 20:45 Musculoskeletal/extremity: Extremities: all appear grossly normal, with no appreciated pain with palpation, 20:45 Skin: cellulitis, is not appreciated, no rash present. 20:45 Neuro: Orientation: to person, place \T\ time. Mentation: is normal, Motor: moves all fours, strength is normal, Sensation: is normal, Vital Signs: 20:03 BP 152 / 91; Pulse 89; Resp 22 S; Temp 98.3; Pulse Ox 97% on R/A; Weight 86.18 kg; br2 Height 5 ft. 2 in. ; Pain 6/10; 20:15 BP 141 / 101; Pulse 79; Resp 16; Pulse Ox 97% on R/A; al5 20:30 BP 132 / 71; Pulse 75; Resp 18; Pulse Ox 98% on R/A; al5 20:45 BP 131 / 90; Pulse 72; Resp 15; Pulse Ox 95% on R/A; al5 21:00 BP 149 / 86; Pulse 75; Resp 17; Pulse Ox 95% on R/A; al5 21:15 BP 157 / 87; Pulse 75; Resp 18; Pulse Ox 98% on R/A; al5 21:30 BP 132 / 80; Pulse 77; Resp 14; Pulse Ox 97% on R/A; al5 22:32 BP 137 / 84; Pulse 79; Resp 15; Pulse Ox 100% on R/A; al5 22:45 BP 154 / 74; Pulse 79; Resp 17; Pulse Ox 96% on R/A; al5 23:00 BP 128 / 81; Pulse 77; Resp 16; Pulse Ox 95% on R/A; al5 23:15 BP 140 / 76; Pulse 82; Resp 14; Pulse Ox 95% on R/A; al5 23:30 BP 141 / 73; Pulse 76; Resp 15; Pulse Ox 96% on R/A; al5 05/08 00:15 BP 156 / 84; Pulse 72; Resp 18; Pulse Ox 97% on R/A; al5 00:52 BP 132 / 79; Pulse 75; Resp 13; Pulse Ox 97% on R/A; al5 01:30 BP 131 / 82; Pulse 76; Resp 17; Pulse Ox 96% ; al5 02:00 BP 132 / 78; Pulse 75; Resp 16; Pulse Ox 96% on R/A; al5 05/07 20:03 Body Mass Index 34.75 (86.18 kg, 157.48 cm) br2 05/07 20:03 Pain Scale: Adult br2 MDM: 05/07 20:10 Medical Screening Exam initiated cp 05/08 02:10 Data reviewed: vital signs, nurses notes, lab test result(s), EKG, radiologic studies, cp CT scan, plain films, and as a result, I will discharge patient. 02:10 Differential diagnosis: CHF exacerbation, abnormal EKG, acute myocardial infarction, cp acute pericarditis, costochondritis, esophagitis, pneumonia, pulmonary edema. Counseling: I had a detailed discussion with the patient and/or guardian regarding the historical points, exam findings, and any diagnostic results supporting the discharge/admit diagnosis, lab results, radiology results, to return to the emergency department if symptoms worsen or persist or if there are any questions or concerns that arise at home. Special discussion: Based on the patient's history, exam, and Dx evaluation, there is no indication for emergent intervention or inpatient Tx. It is understood by the patient/guardian that if the Sx's persist or worsen they need to return immediately for re-evaluation. 05/07 20:35 Order name: Basic Metabolic Panel; Complete Time: 23:01 cp 05/07 23:01 Interpretation: Normal except: K 3.4; CRE 1.18; GFR 52. cp 05/07 20:35 Order name: CBC with Diff; Complete Time: 23: cp 05/07 20:35 Order name: LFT's; Complete Time: 23: cp 05/07 20:35 Order name: Magnesium; Complete Time: 23: cp 05/07 20:35 Order name: NT PRO-BNP; Complete Time: 23: cp 05/07 20:35 Order name: PT-INR; Complete Time: 23:01 cp 05/07 20:35 Order name: Troponin HS; Complete Time: 23:01 cp 05/07 20:35 Order name: SARS RAPID; Complete Time: 23:01 cp 05/07 20:35 Order name: Influenza Screen (a \T\ B); Complete Time: 23:01 cp 05/07 20:35 Order name: Lipase; Complete Time: 23: cp 05/07 23:59 Order name: Troponin High Sensitivity; Complete Time: 01:52 cp 05/08 01:53 Interpretation: Reviewed. cp 05/07 21:29 Order name: XRAY Chest Pa And Lat (2 Views); Complete Time: 23: cp 05/07 23:04 Order name: CT Aorta for Dissection; Complete Time: 23:59 cp 05/07 20:35 Order name: Cardiac monitoring; Complete Time: 20:37 cp 05/07 20:35 Order name: EKG - Nurse/Tech; Complete Time: 20:37 cp 05/07 20:35 Order name: IV Saline Lock; Complete Time: 20:37 cp 05/07 20:35 Order name: Labs collected and sent; Complete Time: 20:37 cp 05/07 20:35 Order name: O2 Per Protocol; Complete Time: 20:37 cp 05/07 20:35 Order name: O2 Sat Monitoring; Complete Time: 20:37 cp EC/01 20:15 Rate is 89 beats/min. Rhythm is regular. ND interval is normal. QRS interval is normal. cp QT interval is normal. T waves are Inverted in lead aVR. Interpreted by me. Reviewed by me. Administered Medications: 21:13 Drug: fentaNYL (PF) IVP 25 mcg IVP once Route: IVP; Site: left antecubital; al5 21:57 Follow up: Response: No adverse reaction; Pain is unchanged, physician notified al5 21:13 Drug: Ondansetron IVP 4 mg IVP once; over 2 minutes Route: IVP; Site: left antecubital; al5 21:57 Follow up: Response: No adverse reaction; Nausea is decreased al5 21:56 Drug: DuoNeb Nebulize (2.5 mg - 0.5 mg) 3 ml Nebulizer once Route: Nebulizer; al5 22:40 Follow up: Response: No adverse reaction; No adverse reaction; SOB relieved al5 05/08 00:23 Drug: MethylPrednisoLONE IVP 125 mg IVP once Route: IVP; Site: left antecubital; al5 01:47 Follow up: Response: No adverse reaction al5 00:23 Drug: Furosemide IVP 20 mg IVP once; give over 2 minutes Route: IVP; Site: left al5 antecubital; 01:47 Follow up: Response: No adverse reaction al5 00:23 Drug: Potassium PO Effervescent Tablet 25 mEq PO once; dissolve in 4 ounces of water or al5 juice Route: PO; 01:47 Follow up: Response: No adverse reaction al5 01:47 Drug: fentaNYL (PF) IVP 25 mcg IVP once Route: IVP; Site: left antecubital; al5 02:24 Follow up: Response: No adverse reaction; Pain is decreased al5 02:24 Drug: AZITHromycin PO 500 mg PO once Route: PO; al5 02:24 Follow up: Response: No adverse reaction; Medication administered at discharge. al5 Disposition Summary: 05/08/24 02:10 Discharge Ordered Notes: Location: Home cp Problem: new cp Symptoms: have improved cp Condition: Stable cp Diagnosis - COPD/ Chronic obstructive pulmonary disease with acute lower respiratory infection cp - Chest pain, unspecified cp Followup: cp - With: Private Physician - When: 2 - 3 days - Reason: Recheck today's complaints Discharge Instructions: - Discharge Summary Sheet cp - Nonspecific Chest Pain, Adult cp - Chronic Obstructive Pulmonary Disease Exacerbation cp - Aspirin and Your Heart cp Forms: - Medication Reconciliation Form cp - Antibiotic Education cp - Prescription Opioid Use cp - Patient Portal Instructions cp - Leadership Thank You Letter cp Prescriptions: - Bromfed DM 2-30-10 mg/5 mL Oral syrup - administer 10 milliliter ORAL route every 6 hours as needed for cold symptoms; cp 240 milliliter; Refills: 0, Product Selection Permitted - Anaprox DS 550 mg Oral Tablet - take 1 tablet ORAL route every 12 hours As needed; 20 tablet; Refills: 0, cp Product Selection Permitted - Zithromax Z-Andrew 250 mg Oral Tablet - take 1 tablet ORAL route as directed for 5 days Day 1 - take two (2) tablets cp one time. Day 2, 3, 4 , 5 take one (1) tablet once daily.; 6 tablet; Refills: 0, Product Selection Permitted - Medrol (Andrew) 4 mg Oral Tablets, Dose Pack - take 1 tablet ORAL route as directed - follow package instructions; 1 packet; cp Refills: 0, Product Selection Permitted Signatures: Dispatcher [employer] EDMS Jose Ramon Houston PA PA cp Langhorst, Amanda, RN RN al5 Sherry Morton RN RN br2 Corrections: (The following items were deleted from the chart) 05/07 20:36 20:36 BASIC METABOLIC PANEL+C.LAB.BRZ ordered. EDMS EDMS 20:36 20:36 CBC+H.LAB.BRZ ordered. EDMS EDMS 20:36 20:36 HEPATIC FUNCTION+C.LAB.BRZ ordered. EDMS EDMS 20:36 20:36 MAGNESIUM+C.LAB.BRZ ordered. EDMS EDMS 20:36 20:36 PROBNP+C.LAB.BRZ ordered. EDMS EDMS 20:36 20:36 PROTIME (+INR)+COAG.LAB.BRZ ordered. EDMS EDMS 20:36 20:36 Troponin High Sensitivity+C.LAB.BRZ ordered. EDMS EDMS 20:36 20:36 SARS-COV-2 Antigen Rapid+I.LAB.BRZ ordered. EDMS EDMS 20:36 20:36 Influenza Screen (A \T\ B)+BA.LAB.BRZ ordered. EDMS EDMS 20:36 20:36 LIPASE+C.LAB.BRZ ordered. EDMS EDMS 05/09 01:00 01:59 This 64 yrs old Female presents to ER via Ambulatory with complaints of Chest cp Tightness, Shortness Of Breath, Epigastric Pain, Abdominal Swelling, Dizziness, Nausea. cp
--- NOTE | 2024-05-08 02:10 | ER ---
Nurse's Notes [facility] Name: Ronnell Rubalcava Age: 64 yrs Sex: Female : 1960 Arrival Date: 05/07/2024 Time: 19:55 Bed 18 Private MD: Diagnosis: COPD/ Chronic obstructive pulmonary disease with acute lower respiratory infection;Chest pain, unspecified Presentation: 05/07 20:03 Chief complaint: Patient states: SOB, COUGH AND CHEST PAIN THAT BEGAN LAST NIGHT. br2 RECENTLY DX WITH CHR. PT WAS IN ER ON FRIDAY WITH SIMILAR SYMPTOMS. Coronavirus screen: At this time, unable to obtain information related to travel outside the [place] Ebola Screen: Patient negative for fever greater than or equal to 101.5 degrees Fahrenheit, and additional compatible Ebola Virus Disease symptoms Patient denies exposure to infectious person. Patient denies travel to an Ebola-affected area in the 21 days before illness onset. Initial Sepsis Screen: Does the patient meet any 2 criteria? RR > 20 per min. Does the patient have a suspected source of infection? No. Patient's initial sepsis screen is negative. Risk Assessment: Do you want to hurt yourself or someone else? Patient reports no desire to harm self or others. Onset of symptoms was May 06, 2024. 20:03 Method Of Arrival: Ambulatory br2 20:03 Acuity: BRYANT 3 br2 Triage Assessment: 20:03 General: Appears uncomfortable, obese, Behavior is cooperative, anxious. Pain: br2 Complains of pain in diaphragm, mid-sternal area, right breast and left breast Pain does not radiate. Pain currently is 6 out of 10 on a pain scale. Quality of pain is described as aching, Pain began 1 day ago. Historical: - Allergies: 20:05 Morphine; br2 20:05 Tegretol; br2 - PMHx: 20:05 Back pain; Chronic obstructive lung disease; Fibromyalgia; graves disease; br2 Hypertension; PMHx:; - PSHx: 20:05 back sx; br2 - Immunization history:: Adult Immunizations not up to date. - Infectious Disease History:: Denies. - Social history:: Smoking status: Patient reports the use of cigarette tobacco products, smokes one-half pack cigarettes per day, Patient/guardian denies using alcohol, street drugs. Screenin:11 [facility] ED Fall Risk Assessment (Adult) History of falling in the last 3 months, al5 including since admission No falls in past 3 months (0 pts) Confusion or Disorientation No (0 pts) Intoxicated or Sedated No (0 pts) Impaired Gait No (0 pts) Mobility Assist Device Used No (0 pt) Altered Elimination No (0 pt) Score/Fall Risk Level 0 - 2 = Low Risk Oriented to surroundings, Maintained a safe environment, Hourly rounding (assess needs \T\ fall precautionary measures) done. Abuse screen: Denies threats or abuse. Denies injuries from another. Nutritional screening: No deficits noted. Tuberculosis screening: No symptoms or risk factors identified. Assessment: 20:12 General: Appears in no apparent distress. uncomfortable, Behavior is calm, cooperative. al5 Pain: Complains of pain in chest and mid-sternal area Pain radiates to back and abdomen. Neuro: Level of Consciousness is awake, alert, obeys commands, Oriented to person, place, time, situation. Cardiovascular: Capillary refill < 3 seconds Patient's skin is warm and dry. Rhythm is sinus rhythm. Cardiovascular: Reports since feeling full of fluid. Respiratory: Airway is patent Respiratory effort is even, unlabored, Respiratory pattern is regular, symmetrical. GI: Abdomen is round non-distended. : No signs and/or symptoms were reported regarding the genitourinary system. EENT: No signs and/or symptoms were reported regarding the EENT system. Derm: Skin is intact, is healthy with good turgor, Skin is pink, warm \T\ dry. normal. Musculoskeletal: No signs and/or symptoms reported regarding the musculoskeletal system. 22:30 Reassessment: Patient appears in no apparent distress at this time. No changes from al5 previously documented assessment. Patient and/or family updated on plan of care and expected duration. Pain level reassessed. Patient is alert, oriented x 3, equal unlabored respirations, skin warm/dry/pink. respiratory symptoms were relieved, still having pain and feeling of fullness. 11 00:21 Reassessment: Patient appears in no apparent distress at this time. No changes from al5 previously documented assessment. Patient and/or family updated on plan of care and expected duration. Pain level reassessed. Patient is alert, oriented x 3, equal unlabored respirations, skin warm/dry/pink. 01:55 Reassessment: Patient appears in no apparent distress at this time. No changes from al5 previously documented assessment. Patient and/or family updated on plan of care and expected duration. Pain level reassessed. Patient is alert, oriented x 3, equal unlabored respirations, skin warm/dry/pink. 02:24 Reassessment: Patient appears in no apparent distress at this time. No changes from al5 previously documented assessment. Patient and/or family updated on plan of care and expected duration. Pain level reassessed. Patient is alert, oriented x 3, equal unlabored respirations, skin warm/dry/pink. Patient states feeling better. Vital Signs: 05/07 20:03 BP 152 / 91; Pulse 89; Resp 22 S; Temp 98.3; Pulse Ox 97% on R/A; Weight 86.18 kg; br2 Height 5 ft. 2 in. ; Pain 6/10; 20:15 BP 141 / 101; Pulse 79; Resp 16; Pulse Ox 97% on R/A; al5 20:30 BP 132 / 71; Pulse 75; Resp 18; Pulse Ox 98% on R/A; al5 20:45 BP 131 / 90; Pulse 72; Resp 15; Pulse Ox 95% on R/A; al5 21:00 BP 149 / 86; Pulse 75; Resp 17; Pulse Ox 95% on R/A; al5 21:15 BP 157 / 87; Pulse 75; Resp 18; Pulse Ox 98% on R/A; al5 21:30 BP 132 / 80; Pulse 77; Resp 14; Pulse Ox 97% on R/A; al5 22:32 BP 137 / 84; Pulse 79; Resp 15; Pulse Ox 100% on R/A; al5 22:45 BP 154 / 74; Pulse 79; Resp 17; Pulse Ox 96% on R/A; al5 23:00 BP 128 / 81; Pulse 77; Resp 16; Pulse Ox 95% on R/A; al5 23:15 BP 140 / 76; Pulse 82; Resp 14; Pulse Ox 95% on R/A; al5 23:30 BP 141 / 73; Pulse 76; Resp 15; Pulse Ox 96% on R/A; al5 05/08 00:15 BP 156 / 84; Pulse 72; Resp 18; Pulse Ox 97% on R/A; al5 00:52 BP 132 / 79; Pulse 75; Resp 13; Pulse Ox 97% on R/A; al5 01:30 BP 131 / 82; Pulse 76; Resp 17; Pulse Ox 96% ; al5 02:00 BP 132 / 78; Pulse 75; Resp 16; Pulse Ox 96% on R/A; al5 05/07 20:03 Body Mass Index 34.75 (86.18 kg, 157.48 cm) br2 05/07 20:03 Pain Scale: Adult br2 ED Course: 05/07 19:57 Patient arrived in ED. jj6 20:05 Triage completed. br2 20:09 Jose Ramon Houston PA is PHCP. cp 20:09 Marva Benjamin MD is Attending Physician. cp 20:10 EKG done, by dye penetrant testing technician. af3 20:11 Cheyanne Zapien, JANICE is Primary Nurse. al5 20:11 No provider procedures requiring assistance completed. Inserted saline lock: 22 gauge al5 in left antecubital area, using aseptic technique. Blood collected. Flushed with 10 mL NS. Patient maintains SpO2 saturation greater than 95% on room air. 20:11 Patient has correct armband on for positive identification. Bed in low position. Call al5 light in reach. Side rails up X 1. Provided Education on: plan of care. Client placed on continuous cardiac and pulse oximetry monitoring. NIBP monitoring applied. radiation monitor on. 20:13 Arm band placed on right wrist. Patient placed in the treatment room, on a stretcher. al5 20:33 Jose Ramon Kent MD is Attending Physician. cp 22:10 XRAY Chest Pa And Lat (2 Views) In Process Unspecified. EDMS 23:49 CT Aorta for Dissection In Process Unspecified. EDMS 05/08 02:24 IV discontinued, intact, bleeding controlled, No redness/swelling at site. Pressure al5 dressing applied. Administered Medications: 05/07 21:13 Drug: fentaNYL (PF) IVP 25 mcg IVP once Route: IVP; Site: left antecubital; al5 21:57 Follow up: Response: No adverse reaction; Pain is unchanged, physician notified al5 21:13 Drug: Ondansetron IVP 4 mg IVP once; over 2 minutes Route: IVP; Site: left antecubital; al5 21:57 Follow up: Response: No adverse reaction; Nausea is decreased al5 21:56 Drug: DuoNeb Nebulize (2.5 mg - 0.5 mg) 3 ml Nebulizer once Route: Nebulizer; al5 22:40 Follow up: Response: No adverse reaction; No adverse reaction; SOB relieved al5 05/08 00:23 Drug: MethylPrednisoLONE IVP 125 mg IVP once Route: IVP; Site: left antecubital; al5 01:47 Follow up: Response: No adverse reaction al5 00:23 Drug: Furosemide IVP 20 mg IVP once; give over 2 minutes Route: IVP; Site: left al5 antecubital; 01:47 Follow up: Response: No adverse reaction al5 00:23 Drug: Potassium PO Effervescent Tablet 25 mEq PO once; dissolve in 4 ounces of water or al5 juice Route: PO; 01:47 Follow up: Response: No adverse reaction al5 01:47 Drug: fentaNYL (PF) IVP 25 mcg IVP once Route: IVP; Site: left antecubital; al5 02:24 Follow up: Response: No adverse reaction; Pain is decreased al5 02:24 Drug: AZITHromycin PO 500 mg PO once Route: PO; al5 02:24 Follow up: Response: No adverse reaction; Medication administered at discharge. al5 Medication: 05/07 20:12 VIS not applicable for this client. al5 Outcome: 05/08 02:10 Discharge ordered by . cp 02:26 Discharged to home ambulatory, with family, al5 02:26 Condition: good 02:26 Discharge instructions given to patient, Instructed on discharge instructions, follow up and referral plans. medication usage, Demonstrated understanding of instructions, follow-up care, medications, Prescriptions given X 4, 02:26 Patient left the ED. al5 Signatures: Dispatcher [employer] EDMS Jose Ramon Houston PA PA cp Lesvia [id number] Cheyanne Zapien RN RN al5 Sherry Morton RN RN [email or web address] Courtney Nath3 Corrections: (The following items were deleted from the chart) 01:56 05/07 22:30 Reassessment: Patient appears in no apparent distress at this time. No al5 changes from previously documented assessment. Patient and/or family updated on plan of care and expected duration. Pain level reassessed. Patient is alert, oriented x 3, equal unlabored respirations, skin warm/dry/pink. al5
[2024-05-08] MEDS ORDERED: AZITHROMYCIN 250 MG TAB ONE (02:18)
[2024-05-08 02:51] VITALS: TEMP 98.3
[2024-05-08 03:08] VITALS: BP 132/78; O2SAT 96
--- NOTE | 2024-05-11 12:26 | EKG ---
Test Date: 2024-05-07 Test Time: 20:06:02 Bereavement Counselor: AF MEASUREMENT RESULTS: Intervals: Rate: 89 KS: 132 QRSD: 80 QT: 360 QTc: 438 [place]: P: 63 KS: 132 QRS: 73 T: 66 INTERPRETIVE STATEMENTS: Sinus rhythm ST abnormality, possible digitalis effect Abnormal ECG Compared to ECG 05/05/2024 16:03:44 ST (T wave) deviation now present Electronically Signed On 05-11-24 12:19:16 NEUROLOGY MANAGER by Sanchez Zambrano
== END 2024-05-08 02:26 | disposition home or self-care (01) ==
LOC: ER 19:55
DX: J44.0 Chronic obstructive pulmonary disease with (acute) lower respiratory infection (principal); I10 Essential (primary) hypertension; F17.210 Nicotine dependence, cigarettes, uncomplicated; Z11.52 Encounter for screening for COVID-19
CPT/HCPCS: 85025; 80048; 36415; 83735; 85610; 80076; 84484 ×2; 83690; 83880; 87804 ×2; 71275; 74175; 71046; 96375; 96374; 99285; 87811; Q9967; J1940; J7613; J7644; J3010 ×2; J2919; J2405; 93005